=== PATIENT | male | born 1935 | race African-American/Black ===

== ENCOUNTER 2019-02-12 11:04 | Inpatient (IN) | payer MEDICARE, MEDICAID ==
[~2019-02-12] VITALS: Ht 177.8 cm; Wt 62.1 kg
--- NOTE | 2019-02-12 11:15 | NUR ---
ED Nurse Note: pt. was brought by caregiver from assisted living with ALOC since last night. Pt AAOx2, responding to painful stimuli and name. Pt on alarm security or surveillance monitor, VSS, NAD, SpO2 95% at 2L NC. ERMD at bedside. Will continue to monitor patient.
--- NOTE | 2019-02-12 11:30 | NUR ---
ED Nurse Note: IV ESTABLISHED ON L AC WITH 22 G. BLOOD COULD NOT BE DRAWN. WILL ATTEMPT AT A LATER TIME.
--- NOTE | 2019-02-12 11:40 | Emergency Room Report ---
History of Present Illness General Chief Complaint: Altered Level of Consciousness Source: Family Member, EMS Present Illness HPI Disclaimer: Please note that this report is being documented using DRAGON technology. This can lead to erroneous entry secondary to incorrect interpretation by the dictating instrument. HPI: 84-year-old male with history of hypertension, hyperlipidemia, COPD presents for evaluation of altered mental status. 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 Reported possible left- sided weakness though family member states they believe that is his baseline. He is confused and altered and cannot provide any history. He is complaining of abdominal pain and vomiting earlier. Denies dysuria or hematuria. Found to have a low-grade fever at triage. Intermittent coughing during the exam. EMS states he had one episode of vomiting last night. Patient cannot corroborate. PMH: Hypertension, hyperlipidemia, COPD PSH: Unknown Allergies: None Social Hx: Unknown Allergies: Coded Allergies: No Known Allergies (Unverified , 02/12/19) Nursing Documentation-PMH Past Medical History: No History, Except For History Of Psychiatric Problem: Yes - dementia Review of Systems All Other Systems: limited Physical Exam Vital Signs Date Time Temp Pulse Resp B/P (MAP) Pulse Ox O2 Delivery O2 Flow Rate FiO2 02/12/19 11:07 96.8 101 28 144/92 (109) 100 Room Air General: Awake, appears confused, difficulty following commands HEENT: NC/AT. EOMI. PERRLA. No nystagmus. Facial expressions are symmetrical. No facial droop. Cardiovascular: RRR. S1 and S2 normal. No murmur appreciated Resp: Tachypnea with mild increase in work of breathing. Occasional cough. No wheezing or crackles appreciated Abdomen: Abdomen is soft, nondistended. Nontender Skin: Intact. No abrasions, laceration or rash over the exposed skin MSK: Normal tone and bulk. Moving all extremities. No obvious deformity. Difficult to assess for drift given patient understanding and cooperation. Neuro: Awake, disoriented, difficulty following commands. Facial expression symmetrical. Sensation to light touch is intact over the upper and lower extremities. Medical Decision Making Diagnostic Impression: Primary Impression: Altered level of consciousness Additional Impressions: Pneumonia JOEL (acute kidney injury) Dehydration ER Course 84-year-old male presenting for evaluation of altered mental status, tachypnea and increased work of breathing. Differential includes was not limited to sepsis, pneumonia, dehydration, electrolyte abnormality, occult head injury, CVA. Will obtain a CT scan of the head and start a broad metabolic infectious work-up. IV fluids are started. Patient has no acute complaints at this time. Laboratory Tests Test 02/12/19 12:30 02/12/19 13:59 02/12/19 14:10 White Blood Count 9.7 K/UL (4.8-10.8) Red Blood Count 4.79 M/UL (4.70-6.10) Hemoglobin 13.7 G/DL (14.2-18.0) L Hematocrit 42.4 % (42.0-52.0) Mean Corpuscular Volume 88 FL (80-99) Mean Corpuscular Hemoglobin 28.7 PG (27.0-31.0) Mean Corpuscular Hemoglobin Concent 32.4 G/DL (32.0-36.0) Red Cell Distribution Width 12.8 % (11.6-14.8) Platelet Count 151 K/UL (150-450) Mean Platelet Volume 7.8 FL (6.5-10.1) Neutrophils (%) (Auto) 84.5 % (45.0-75.0) H Lymphocytes (%) (Auto) 8.6 % (20.0-45.0) L Monocytes (%) (Auto) 6.5 % (1.0-10.0) Eosinophils (%) (Auto) 0.0 % (0.0-3.0) Basophils (%) (Auto) 0.4 % (0.0-2.0) Prothrombin Time 11.2 SEC (9.30-11.50) Prothrombin Time INR 1.1 (0.9-1.1) PTT 27 SEC (23-33) Sodium Level 137 MMOL/L (136-145) Potassium Level 3.6 MMOL/L (3.5-5.1) Chloride Level 103 MMOL/L (98-107) Carbon Dioxide Level 23 MMOL/L (21-32) Anion Gap 11 mmol/L (5-15) Blood Urea Nitrogen 39 mg/dL (7-18) H Creatinine 2.1 MG/DL (0.55-1.30) H Estimate Glomerular Filtration Rate mL/min (>60) Glucose Level 121 MG/DL (74-106) H Lactic Acid Level 2.80 mmol/L (0.4-2.0) H Pending Calcium Level 9.3 MG/DL (8.5-10.1) Phosphorus Level 3.1 MG/DL (2.5-4.9) Magnesium Level 2.0 MG/DL (1.8-2.4) Total Bilirubin 1.1 MG/DL (0.2-1.0) H Direct Bilirubin 0.3 MG/DL (0.0-0.3) Aspartate Amino Transferase (AST) 62 U/L (15-37) H Alanine Aminotransferase (ALT) 30 U/L (12-78) Alkaline Phosphatase 47 U/L (46-116) Troponin I 0.056 ng/mL (0.000-0.056) Total Protein 7.8 G/DL (6.4-8.2) Albumin 3.1 G/DL (3.4-5.0) L Globulin 4.7 g/dL Albumin/Globulin Ratio 0.7 (1.0-2.7) L Triglycerides Level 32 MG/DL (30-150) Cholesterol Level 155 MG/DL (< 200) LDL Cholesterol 66 mg/dL (<100) HDL Cholesterol 73 MG/DL (40-60) H Cholesterol/HDL Ratio 2.1 (3.3-4.4) L Urine Color Yellow Urine Appearance Slightly cloudy Urine pH 5 (4.5-8.0) Urine Specific [place] 1.020 (1.005-1.035) Urine Protein 2+ (NEGATIVE) H Urine Glucose (UA) Negative (NEGATIVE) Urine Ketones Negative (NEGATIVE) Urine Blood 5+ (NEGATIVE) H Urine Nitrite Negative (NEGATIVE) Urine Bilirubin Negative (NEGATIVE) Urine Urobilinogen Normal MG/DL (0.0-1.0) Urine Leukocyte Esterase 1+ (NEGATIVE) H Urine RBC Pending Urine WBC Pending Urine Squamous Epithelial Cells Pending Urine Bacteria Pending Urine Eosinophils Pending Urine Osmolality Pending Urine Random Creatinine Pending Urine Random Microalbumin Pending Urine Random Sodium 64 mmol/L (20-110) Urine Microalbumin/Creatinine Ratio Pending Chest X-Ray Diagnostic Results Chest X-Ray Diagnostic Results : Chest X-Ray Ordered: Yes # of Views/Limited/Complete: 1 View Indication: Shortness of Breath Interpretation: other - Consolidation of the right upper lobe Impression: Other - Concern for right upper lobe pneumonia Electronically Signed by: Electronically signed by Dr. Oscar Govea Reevaluation Time: 13:10 Last Vital Signs Date Time Temp Pulse Resp B/P (MAP) Pulse Ox O2 Delivery O2 Flow Rate FiO2 02/12/19 11:07 96.8 101 28 144/92 (109) 100 Room Air Reevaluation Impression CT does not show acute head mass or intracranial bleed. There is an noted old infarcts but no mention of acute findings. Chest x-ray concerning for right upper lobe pneumonia. Labs largely unremarkable. Patient remains mildly tachypneic but in no respiratory distress. Treated with ceftriaxone and azithromycin. Labs also consistent with dehydration, and acute kidney injury and lactic acidosis. IV fluids are running. Urine is pending. He will be admitted to the hospital for further treatment of his pneumonia and altered mental status. Disposition: ADMITTED INPATIENT Condition: Serious Referrals: Cristian Yun MD (PCP) Oscar Govea MD Feb 12, 2019 11:40
--- NOTE | 2019-02-12 11:45 | NUR ---
ED Nurse Note: Pt going to CT accompanied by senior technical support analyst via tomas. VSS.
[2019-02-12 11:55] VITALS: BP 143/79
--- NOTE | 2019-02-12 11:56 | NUR ---
ED Nurse Note:called labs for blood draw
--- NOTE | 2019-02-12 12:01 | NUR ---
ED Nurse Note: XR at bedside.
--- NOTE | 2019-02-12 12:10 | Diagnostic Imaging Report ---
Indication: Altered mental status Technique: Continuous helical CT scanning of the head was performed utilizing automated exposure control without intravenous contrast material. Axial and coronal reconstructions were obtained. Comparison: None CT dose: Total DLP 245.2 mGycm; CTDI vol 125.4 mGy Findings: There is no acute intracranial hemorrhage, mass effect or cortical edema. Is no shift of midline structures. The ventricles, cisterns and sulci are prominent consistent with atrophy. Periventricular hypoattenuation is seen, a nonspecific finding. 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 Visualized mastoid air cells are clear. There is mucosal thickening with frothy secretions in the left sphenoid sinus. There are atherosclerotic gastric calcifications. No focal lesions of the bony calvarium or soft tissues of the scalp are seen. IMPRESSION: No evidence of acute intracranial hemorrhage, mass effect or cortical edema. Atrophy and nonspecific periventricular hypoattenuation suggestive of chronic ischemic microvascular changes. 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 The CT scanner at [facility] is accredited by the [employer] and the scans are performed using protocols designed to limit radiation exposure to as low as reasonably achievable to attain images of sufficient resolution adequate for diagnostic evaluation.
--- NOTE | 2019-02-12 12:23 | NUR ---
ED Nurse Note: Phlebotomy at bedside drawing blood.
[2019-02-12 12:55] LABS: ANION GAP 11 mmol/L (5-15); BASOPHILS % (AUTO) 0.4 % (0.0-2.0); BLOOD UREA NITROGEN 39 mg/dL (7-18); CALCIUM 9.3 MG/DL (8.5-10.1); CARBON DIOXIDE 23 MMOL/L (21-32); CHLORIDE 103 MMOL/L (98-107); CREATININE 2.1 MG/DL (0.55-1.30); HEMATOCRIT 42.4 % (42.0-52.0); HEMOGLOBIN 13.7 G/DL (14.2-18.0); LYMPHOCYTES % (AUTO) 8.6 % (20.0-45.0); MEAN CORPUSCULAR VOLUME 88 FL (80-99); MONOCYTES % (AUTO) 6.5 % (1.0-10.0); NEUTROPHILS % (AUTO) 84.5 % (45.0-75.0); PLATELET COUNT 151 K/UL (150-450); POTASSIUM 3.6 MMOL/L (3.5-5.1); RED BLOOD COUNT 4.79 M/UL (4.70-6.10); RED CELL DISTRIBUTION WIDTH 12.8 % (11.6-14.8); SODIUM 137 MMOL/L (136-145); WHITE BLOOD COUNT 9.7 K/UL (4.8-10.8)
[2019-02-12 13:00] VITALS: BP_SYST 13; BP_SYST 133; BP_DIAS 68
[2019-02-12] MEDS ORDERED: Azithromycin 500 MG in NS 275 ML IV ONE (13:00)
[2019-02-12] MEDS ORDERED: cefTRIAXone 1 GM in NS 55 ML IVPB ONE (13:00)
[2019-02-12 13:01] LABS: INR 1.1 (0.9-1.1)
[2019-02-12 13:02] LABS: PHOSPHORUS 3.1 MG/DL (2.5-4.9)
[2019-02-12] MEDS ORDERED: CRANBERRY450 M4 PO (13:08)
[2019-02-12] MEDS ORDERED: HYDRALAZINE HCL10 MG ORAL (13:08)
[2019-02-12] MEDS ORDERED: ASPIR 8181 MG ORAL (13:08)
[2019-02-12] MEDS ORDERED: MAPAP ARTHRITI650 MG ORAL (13:08)
[2019-02-12] MEDS ORDERED: NORCO 7.5-3251 EACH ORAL (13:08)
[2019-02-12] MEDS ORDERED: SENNA LAXATIVE8.6 MG PO (13:08)
[2019-02-12] MEDS ORDERED: CHLORTHALIDONE25 MG ORAL (13:08)
[2019-02-12] MEDS ORDERED: AMLODIPINE BESYL5 MG ORAL (13:08)
[2019-02-12] MEDS ORDERED: DUONEB 0.5-3(2.53 ML HHN (13:08)
[2019-02-12 13:09] LABS: ALANINE AMINOTRANSFERASE 30 U/L (12-78); ALBUMIN 3.1 G/DL (3.4-5.0); ALBUMIN/GLOBULIN RATIO 0.7 (1.0-2.7); ALKALINE PHOSPHATASE 47 U/L (46-116); ASPARTATE AMINO TRANSFERASE 62 U/L (15-37); BILIRUBIN,DIRECT 0.3 MG/DL (0.0-0.3); BILIRUBIN,TOTAL 1.1 MG/DL (0.2-1.0); CHOLESTEROL 155 MG/DL (< 200); HDL CHOLESTEROL 73 MG/DL (40-60); TRIGLYCERIDES 32 MG/DL (30-150)
[2019-02-12] MEDS ORDERED: LEVETIRACETAM1000 MG ORAL (13:09)
[2019-02-12] MEDS ORDERED: ATORVASTATIN CA80 MG ORAL (13:09)
[2019-02-12] MEDS ORDERED: Promethazine/Codeine 5ml UD ORAL PRN (13:15)
[2019-02-12] MEDS ORDERED: Albuterol/Ipratropium 3ml neb HHN PRN ×2 (13:15→19:11)
[2019-02-12] MEDS ORDERED: Miralax 17gm pkt ORAL PRN (13:15)
[2019-02-12] MEDS ORDERED: Nitroglycerin Subl 0.4mg tab SL PRN (13:15)
[2019-02-12] MEDS ORDERED: HYDROcodone/Acetamin 7.5/325 tab ORAL PRN (13:15)
--- NOTE | 2019-02-12 13:16 | Diagnostic Imaging Report ---
Indication: Shortness of breath Technique: XRAY Chest 1v Comparison: None Findings: Limited exam with low lung volumes. Heart appears enlarged although this may be exaggerated by low lung volumes. There is acute indeterminate interstitial prominence. No focal airspace opacities noted in the right upper lung. Possible small left pleural effusion. No radiographically appreciable pneumothorax. There are degenerative changes of the spine. No acute osseous abnormality. Impression: Limited exam with low lung volumes. Focal airspace opacities in the right upper lung which may represent an area of alveolar edema or pneumonia. Clinical correlation and follow-up is recommended. Background increased interstitial markings which may related to interstitial edema or underlying interstitial lung disease/fibrosis.
--- NOTE | 2019-02-12 13:49 | NUR ---
ED Nurse Note: US at bedside.
[2019-02-12 14:00] VITALS: BP 135/68
[2019-02-12 14:29] LABS: APPEARANCE,URINE SLIGHTLY CLOUDY; BILIRUBIN, URINE NEGATIVE (NEGATIVE); GLUCOSE, URINE (UA) NEGATIVE (NEGATIVE); KETONES,URINE NEGATIVE (NEGATIVE); LEUKOCYTE ESTERASE ,URINE 1+ (NEGATIVE); NITRITE,URINE NEGATIVE (NEGATIVE); PH,URINE 5 (4.5-8.0); PROTEIN,URINE 2+ (NEGATIVE); UROBILINOGEN,URINE NORMAL MG/DL (0.0-1.0)
[2019-02-12 14:32] LABS: COLOR,URINE YELLOW
--- NOTE | 2019-02-12 14:53 | NUR ---
ED Nurse Note: Gave report to Nils STARKEY for -.
--- NOTE | 2019-02-12 15:00 | NUR ---
TRANSFER TO FLOOR: Patient transferred to 204-1 accompanied by 1 RN 1 tech as ordered, per Dr. Bergman. Report given to Nils STARKEY at [id number]. Belongings sent with patient. Pt DAMION MCDOWELL.
--- NOTE | 2019-02-12 15:25 | Diagnostic Imaging Report ---
Indication: Renal insufficiency Technique: US Renal Comp Comparison: None Findings: Right kidney measures 9.5 cm in length. Left kidney measures 8.9 cm in length. Both kidneys demonstrate normal echogenicity. There is no hydronephrosis or sonographically appreciable renal stone bilaterally. There is diffuse thickening of the wall the bladder which may be related to underdistention. Partially visualized prostate appears mildly enlarged. Partially imaged liver unremarkable. IMPRESSION: * No hydronephrosis or sonographically appreciable renal stone * Renal echogenicity appears within normal limits. * Apparent bladder wall thickening may be related to underdistention. Correlation with urinalysis recommended to assess for cystitis. * Partially imaged prostate appears enlarged, exerting mass effect on the posterior aspect of the bladder.
--- NOTE | 2019-02-12 15:43 | History & Physical ---
History and Physical History & Physicial Robert Bergman MD Feb 12, 2019 15:43
[2019-02-12 16:46] LABS: CREATINE KINASE 2239 U/L (26-308)
[2019-02-12 16:47] VITALS: BP 136/84
[2019-02-12] MEDS ORDERED: Vancomycin 1.5gm/NS Premix q24h IVPB SCH (17:00)
--- NOTE | 2019-02-12 17:29 | NUR ---
NURSE NOTES: Pt came from ED, head to toe assessment, pt is Ox1, very confused, IV intact and patent, orders in by Wallace, pt has IV on right AC 22, pt was placed on equipment monitor phototypesetting and bed alarm on, call light at bedside, to collected influ A&B, placed condom cath on patient do to incontinence.
[2019-02-12] MEDS: D5 1/2NS w/KCl 20mEq 1,000 ML IV SCH (17:41)
[2019-02-12] MEDS: Cefepime HCl 1 GM in D5W 55 ML IV SCH (17:43)
--- NOTE | 2019-02-12 19:20 | NUR ---
HAND-OFF: Report given to JAKY Noel.
--- NOTE | 2019-02-12 19:21 | NUR ---
NURSE NOTES: Received pt from JAKY Novoa. Pt is awake and resting in bed no acute distress. Pt is AO1, able to verbalize name, delayed. Pt on 2 L nasal cannula. Iv site intact and patent. Bed locked in lowest position, bed alarm on, call light within reach. Will continue with plan of care.
--- NOTE | 2019-02-12 19:30 | History and Physical Report ---
DATE OF ADMISSION: 02/12/2019 CHIEF COMPLAINT: Altered mental status. HISTORY OF PRESENT ILLNESS: This is an 84-year-old very unfortunate gentleman with past medical history of hypertension, dyslipidemia, and chronic obstructive pulmonary disease, who has presented to the hospital after he was found to be altered mental status. Caregiver found the patient confused and lethargic this morning and possible left-sided weakness. According to the family member, the patient believes that this is baseline. He is confused and altered, cannot provide history, complained about the abdominal discomfort associated with the vomiting earlier. He denies any dysuria or frequency. He was found to have low-grade fever. Complained about chest congestion and cough. Shortly after initial evaluation in the emergency department, the patient was admitted to the hospital with pneumonia as well as acute kidney injury with prerenal azotemia, dehydration, and altered mental status most likely secondary to toxic metabolic encephalopathy. PAST MEDICAL HISTORY/PAST SURGICAL HISTORY: As above history of hypertension, dyslipidemia, and chronic obstructive pulmonary disease. MEDICATIONS AT HOME: Please refer to medication reconciliation. ALLERGIES: No known drug allergies. SOCIAL HISTORY: No smoking, alcohol, or drugs at this time. The patient is very demented and cannot provide history. REVIEW OF SYSTEMS: Mostly as above. Denies any dysuria, frequency, or hematuria. Denies any hemoptysis or hematochezia. Denies any bright red blood per rectum. PHYSICAL EXAMINATION: VITAL SIGNS: On admission, temperature 96.8, pulse of 101, respirations 28, and blood pressure 144/92. GENERAL: The patient is cachectic, malnutrition, cannot follow commands, and confused. HEAD AND NECK: Pupils are reactive to light. Anicteric. NECK: Supple. No JVD. LUNGS: Good air entry. No wheezing or rhonchi. The patient has crackles in the both posterior aspects of the lung. ABDOMEN: Soft, nondistended, and nontender. Positive bowel sounds. EXTREMITIES: No cyanosis, clubbing, or edema. NEUROLOGIC: Very limited secondary to the patient's status. However, the patient is moving extremities spontaneously. Gait was not assessed due to the patient's status. DIAGNOSTIC DATA: On admission, CT of the brain showed no evidence of acute intracranial hemorrhage, mass effect, or cortical edema. Atrophy and nonspecific periventricular hypoattenuation suggestive of the chronic ischemic microvascular changes and chronic ischemic infarction in the right basal ganglia was identified. Chest x-ray was noted to be limited due to the low lung volumes, focal airspace opacity in the right upper lung, which may represent an area of the alveolar edema or pneumonia. Clinical correlation and follow-up is recommended. The patient's ultrasound of the kidney showed no hydronephrosis or sonographic appreciated renal stone. Renal echogenicity appear within the normal limits and apparent bladder wall thickening may be related to the under distention. Partial image for prostate appear enlarged exerting mass effect on the posterior aspect of the bladder. LABORATORY DATA: WBC of 9.7, hemoglobin 13, hematocrit 42, and platelets is 151,000. Sodium 137, potassium 3.6, chloride 103, bicarb 23, BUN 39, creatinine 2.1, and glucose is 121. Lactic acid is 2.8. Calcium is 9.3, Total bilirubin is 1.1 and direct bilirubin of 0.3. AST of 62 and ALT of 30. Troponin 0.056. Albumin is 3.1. Cholesterol is 155, HDL is 73, and LDL 66. PT of 11, INR 1.1, and PTT of 27. Urinalysis, +2 protein, +5 blood, 5 to 10 rbc's, and wbc. ASSESSMENT: 1. Altered mental status, most likely secondary to toxic metabolic encephalopathy as a result of the sepsis and dehydration. 2. Acute kidney injury and chronic renal insufficiency. 3. Dehydration and hypovolemia. 4. Pneumonia. 5. Hypertension. 6. Dyslipidemia. 7. Chronic obstructive pulmonary disease. PLAN: 1. Admit the patient to monitored unit. 2. We will follow up with Dr. Yun, Pulmonary Critical Care and Dr. Romero Sunshine from Nephrology. 3. Start the patient on IV hydration. 4. Resume home medication. 5. DVT prophylaxis with heparin subcutaneous. 6. Follow up with the nebulizer treatment as needed. 7. Broad-spectrum antibiotic with cefepime, Zithromax, and vancomycin. 8. We will follow up with the viral study. 9. Code status is Full Code. Robert Bergman M.D. DR: JOYCE JOB#: [id number] CC:
[2019-02-12 20:00] VITALS: BP 124/80
[2019-02-12] MEDS: Atorvastatin 80mg tab ORAL SCH (21:23)
[2019-02-12] MEDS: Heparin 5000 units/ml inj SUBQ SCH (21:27)
[2019-02-13] VITALS (7 sets, daily range): BP systolic 104–137; BP diastolic 60–76
[2019-02-13] MEDS: D5 1/2NS w/KCl 20mEq 1,000 ML IV SCH ×3 (06:55→20:21)
--- NOTE | 2019-02-13 07:22 | NUR ---
HAND-OFF: Report given to JAKY Dawson. Endorsed plan of care.
--- NOTE | 2019-02-13 08:05 | NUR ---
NURSE NOTES: Received patient from Edy Dee. Patient is awake lying comfortably in bed. NO complain of pain or discomfort. Fall precautions in place. call ritter within patients reach. will follow.
[2019-02-13] MEDS: Aspirin EC 81mg tab ORAL SCH (08:43)
[2019-02-13] MEDS: Heparin 5000 units/ml inj SUBQ SCH ×2 (08:44→20:22)
[2019-02-13 08:56] LABS: HEMATOCRIT 36.8 % (42.0-52.0); HEMOGLOBIN 12.1 G/DL (14.2-18.0); MEAN CORPUSCULAR VOLUME 89 FL (80-99); PLATELET COUNT 105 K/UL (150-450); RED BLOOD COUNT 4.13 M/UL (4.70-6.10); WHITE BLOOD COUNT 7.4 K/UL (4.8-10.8)
[2019-02-13 09:37] LABS: ALANINE AMINOTRANSFERASE 30 U/L (12-78); ALBUMIN 2.5 G/DL (3.4-5.0); ALBUMIN/GLOBULIN RATIO 0.6 (1.0-2.7); ALKALINE PHOSPHATASE 39 U/L (46-116); ANION GAP 5 mmol/L (5-15); ASPARTATE AMINO TRANSFERASE 91 U/L (15-37); BILIRUBIN,TOTAL 1.1 MG/DL (0.2-1.0); BLOOD UREA NITROGEN 37 mg/dL (7-18); CALCIUM 8.5 MG/DL (8.5-10.1); CARBON DIOXIDE 28 MMOL/L (21-32); CHLORIDE 104 MMOL/L (98-107); CREATININE 1.7 MG/DL (0.55-1.30); POTASSIUM 3.6 MMOL/L (3.5-5.1); SODIUM 137 MMOL/L (136-145)
[2019-02-13 09:45] LABS: BILIRUBIN,DIRECT 0.3 MG/DL (0.0-0.3)
--- NOTE | 2019-02-13 09:57 | NUR ---
*-* NO INSURANCE INFORMATION IN THE BAR UNABLE TO SEND CLINICALS OR REVIEWS *-*
[2019-02-13 09:59] LABS: PHOSPHORUS 2.7 MG/DL (2.5-4.9)
--- NOTE | 2019-02-13 10:38 | Consultation ---
History of Present Illness General Chief Complaint: Altered Level of Consciousness Reason for Consultation: PNA Present Illness HPI Mr. Osman is an 84 yo male with PMHx of COPD, HLD, and HTN who was sent to the ED on 02/12/19 with AMS. The patient lives at home with a home child care provider. He was noted to be confused and lithargic so was sent to the ED. He is unable to given a history but per notes he has a basline leftsided weakness and was complaining of cough, abdominal pain and vomiting. In the ED he had high temp of 100.6 and Cr of 1.7. His CXR showed RUL PNA. He currnetly is on 2L NC and denies pain. He denies dysuria bu his UA was pos. ID was consulted for PNA PMHx/PSHx COPD HLD HTN SocHx No E/T/D FamHx Unable to obtian Allergies: Coded Allergies: No Known Allergies (Unverified , 02/12/19) Medication History Scheduled Amlodipine Besylate* (Amlodipine Besylate*), 5 MG ORAL DAILY, (Reported) Aspirin* (Aspir 81*), 81 MG ORAL DAILY, (Reported) Atorvastatin Calcium* (Lipitor*), 80 MG ORAL BEDTIME, (Reported) Chlorthalidone* (Chlorthalidone*), 25 MG ORAL DAILY, (Reported) Cranberry Fruit Concentrate (Cranberry), 500 MG PO DAILY, (Reported) Hydralazine Hcl* (Hydralazine Hcl*), 10 MG ORAL EVERY 8 HOURS, (Reported) Ipratropium/Albuterol Sulfate (DuoNeb 0.5-3(2.5)mg/3ml), 3 ML HHN Q4HR, ( Reported) Levetiracetam (Levetiracetam), 1,000 MG ORAL TWICE A DAY, (Reported) Sennosides (Senna Laxative), 8.6 MG PO DAILY, (Reported) Scheduled PRN Acetaminophen (Mapap Arthritis Pain), 650 MG ORAL Q6HR PRN for ARTHRITIS PAIN, ( Reported) Hydrocodone Bit/Acetaminophen 7.5-325* ([place] 7.5-325*), 1 TAB ORAL Q6H PRN for For Pain, (Reported) Patient History Healthcare decision maker self Resuscitation status Full Code Advanced Directive on File No Review of Systems ROS Narrative 12 point ROS negative except as noted in the HPI Physical Exam Last 24 Hour Vital Signs Date Time Temp Pulse Resp B/P (MAP) Pulse Ox O2 Delivery O2 Flow Rate FiO2 02/13/19 09:00 Room Air 2.0 02/13/19 08:43 98 133/71 02/13/19 08:30 98 Nasal Cannula 2.0 28 02/13/19 08:30 97 21 98 Nasal Cannula 2.0 28 02/13/19 08:00 99.5 99 22 133/71 (91) 98 98 02/13/19 04:00 98 02/13/19 04:00 99.5 98 18 127/73 (91) 96 98 02/13/19 00:00 97.5 91 20 137/76 (96) 99 91 02/13/19 00:00 91 02/12/19 21:54 98.1 02/12/19 21:00 Room Air 2.0 02/12/19 20:00 100.6 102 22 124/80 (95) 99 102 02/12/19 17:07 Nasal Cannula 2.0 02/12/19 16:47 97.1 103 22 136/84 (101) 95 103 02/12/19 16:30 93 02/12/19 15:00 99.3 98 26 135/68 95 Nasal Cannula 2.0 96 02/12/19 14:00 99.3 98 26 135/68 95 Room Air 96 02/12/19 13:00 99.3 96 28 133/68 95 Room Air 02/12/19 12:45 99 28 Room Air 02/12/19 11:55 99.7 101 28 143/79 100 Room Air 02/12/19 11:07 96.8 101 28 144/92 (109) 100 Room Air Intake and Output 02/12/19 02/13/19 19:00 07:00 Intake Total 0 ml Output Total 400 ml Balance 0 ml -400 ml Intake Oral 0 ml Output Urine Total 400 ml Laboratory Tests Test 02/12/19 12:30 02/12/19 13:59 02/12/19 14:10 02/13/19 07:55 White Blood Count 9.7 K/UL (4.8-10.8) 7.4 K/UL (4.8-10.8) Red Blood Count 4.79 M/UL (4.70-6.10) 4.13 M/UL (4.70-6.10) L Hemoglobin 13.7 G/DL (14.2-18.0) L 12.1 G/DL (14.2-18.0) L Hematocrit 42.4 % (42.0-52.0) 36.8 % (42.0-52.0) L Mean Corpuscular Volume 88 FL (80-99) 89 FL (80-99) Mean Corpuscular Hemoglobin 28.7 PG (27.0-31.0) 29.3 PG (27.0-31.0) Mean Corpuscular Hemoglobin Concent 32.4 G/DL (32.0-36.0) 32.9 G/DL (32.0-36.0) Red Cell Distribution Width 12.8 % (11.6-14.8) 13.0 % (11.6-14.8) Platelet Count 151 K/UL (150-450) 105 K/UL (150-450) L Mean Platelet Volume 7.8 FL (6.5-10.1) 8.0 FL (6.5-10.1) Neutrophils (%) (Auto) 84.5 % (45.0-75.0) H % (45.0-75.0) Lymphocytes (%) (Auto) 8.6 % (20.0-45.0) L % (20.0-45.0) Monocytes (%) (Auto) 6.5 % (1.0-10.0) % (1.0-10.0) Eosinophils (%) (Auto) 0.0 % (0.0-3.0) % (0.0-3.0) Basophils (%) (Auto) 0.4 % (0.0-2.0) % (0.0-2.0) Prothrombin Time 11.2 SEC (9.30-11.50) Prothromb Time International Ratio 1.1 (0.9-1.1) Activated Partial Thromboplast Time 27 SEC (23-33) Sodium Level 137 MMOL/L (136-145) 137 MMOL/L (136-145) Potassium Level 3.6 MMOL/L (3.5-5.1) 3.6 MMOL/L (3.5-5.1) Chloride Level 103 MMOL/L (98-107) 104 MMOL/L (98-107) Carbon Dioxide Level 23 MMOL/L (21-32) 28 MMOL/L (21-32) Anion Gap 11 mmol/L (5-15) 5 mmol/L (5-15) Blood Urea Nitrogen 39 mg/dL (7-18) H 37 mg/dL (7-18) H Creatinine 2.1 MG/DL (0.55-1.30) H 1.7 MG/DL (0.55-1.30) H Estimat Glomerular Filtration Rate mL/min (>60) mL/min (>60) Glucose Level 121 MG/DL (74-106) H 113 MG/DL (74-106) H Lactic Acid Level 2.80 mmol/L (0.4-2.0) H 3.60 mmol/L (0.66-2.22) H Uric Acid 10.9 MG/DL (2.6-7.2) H Calcium Level 9.3 MG/DL (8.5-10.1) 8.5 MG/DL (8.5-10.1) Phosphorus Level 3.1 MG/DL (2.5-4.9) 2.7 MG/DL (2.5-4.9) Magnesium Level 2.0 MG/DL (1.8-2.4) 1.9 MG/DL (1.8-2.4) Total Bilirubin 1.1 MG/DL (0.2-1.0) H 1.1 MG/DL (0.2-1.0) H Direct Bilirubin 0.3 MG/DL (0.0-0.3) 0.3 MG/DL (0.0-0.3) Aspartate Amino Transf (AST/SGOT) 62 U/L (15-37) H 91 U/L (15-37) H Alanine Aminotransferase (ALT/SGPT) 30 U/L (12-78) 30 U/L (12-78) Alkaline Phosphatase 47 U/L (46-116) 39 U/L (46-116) L Total Creatine Kinase 2239 U/L (26-308) H Troponin I 0.056 ng/mL (0.000-0.056) Total Protein 7.8 G/DL (6.4-8.2) 6.9 G/DL (6.4-8.2) Albumin 3.1 G/DL (3.4-5.0) L 2.5 G/DL (3.4-5.0) L Globulin 4.7 g/dL 4.4 g/dL Albumin/Globulin Ratio 0.7 (1.0-2.7) L 0.6 (1.0-2.7) L Triglycerides Level 32 MG/DL (30-150) Cholesterol Level 155 MG/DL (< 200) LDL Cholesterol 66 mg/dL (<100) HDL Cholesterol 73 MG/DL (40-60) H Cholesterol/HDL Ratio 2.1 (3.3-4.4) L Urine Color Yellow Urine Appearance Slightly cloudy Urine pH 5 (4.5-8.0) Urine Specific [place] 1.020 (1.005-1.035) Urine Protein 2+ (NEGATIVE) H Urine Glucose (UA) Negative (NEGATIVE) Urine Ketones Negative (NEGATIVE) Urine Blood 5+ (NEGATIVE) H Urine Nitrite Negative (NEGATIVE) Urine Bilirubin Negative (NEGATIVE) Urine Urobilinogen Normal MG/DL (0.0-1.0) Urine Leukocyte Esterase 1+ (NEGATIVE) H Urine RBC 5-10 /HPF (0 - 0) H Urine WBC Tntc /HPF (0 - 0) H Urine Squamous Epithelial Cells Few /LPF (NONE/OCC) Urine Bacteria Few /HPF (NONE) Urine Hyaline Casts 0-2 /LPF (NONE) H Urine Fine Granular Casts 2-4 /LPF (NONE) H Urine Eosinophils None seen (NONE SEEN) Urine Osmolality 743 mOsm/kg (429-449) H Urine Random Creatinine Pending Urine Random Microalbumin Pending Urine Random Sodium 64 mmol/L (20-110) Urine Microalbumin/Creatinine Ratio Pending Differential Total Cells Counted 100 Neutrophils % (Manual) 83 % (45-75) H Lymphocytes % (Manual) 10 % (20-45) L Monocytes % (Manual) 7 % (1-10) Eosinophils % (Manual) 0 % (0-3) Basophils % (Manual) 0 % (0-2) Band Neutrophils 0 % (0-8) Platelet Estimate Decreased L Platelet Morphology Normal Red Blood Cell Morphology Normal Random Vancomycin Level 10.3 ug/mL Microbiology Date/Time Source Procedure Growth Status 02/12/19 18:45 Nasal Nares - Final Complete 02/12/19 18:45 Nasal Nares - Final Complete 02/12/19 14:10 Urine,Clean Catch Urine Culture - Preliminary NO GROWTH Resulted Height (Feet): 5 Height (Inches): 10.00 Weight (Pounds): 151 Medications Current Medications Medications (Trade) Dose Ordered Sig/Nixon Route PRN Reason Start Time Stop Time Status Last Admin Dose Admin Acetaminophen (Tylenol) 650 mg Q4H PRN ORAL fever 02/12/19 13:15 03/14/19 13:14 02/12/19 21:24 Acetaminophen/ Hydrocodone Bitart ([place] 7.5/325) 1 tab Q6H PRN ORAL For Pain 02/12/19 13:15 02/19/19 13:14 Albuterol/ Ipratropium (Albuterol/ Ipratropium) 3 ml Q4H PRN HHN Shortness of Breath 02/12/19 19:11 02/17/19 19:10 Amlodipine Besylate (Norvasc) 5 mg DAILY ORAL 02/13/19 09:00 03/15/19 08:59 02/13/19 08:43 Aspirin (Ecotrin) 81 mg DAILY ORAL 02/13/19 09:00 03/15/19 08:59 02/13/19 08:43 Atorvastatin Calcium (Lipitor) 80 mg BEDTIME ORAL 02/12/19 21:00 03/14/19 20:59 02/12/19 21:23 Cefepime HCl 1 gm/ Dextrose 55 ml @ 110 mls/hr Q24H IV 02/12/19 18:00 02/19/19 17:59 02/12/19 17:43 Dextrose/ Electrolytes 1,000 ml @ 75 mls/hr [id number] IV 02/12/19 17:00 03/14/19 16:59 02/13/19 06:55 Heparin Sodium (Porcine) (Heparin 5000 units/ml) 5,000 units EVERY 12 HOURS SUBQ 02/12/19 21:00 03/14/19 20:59 02/13/19 08:44 Levetiracetam (Keppra) 1,000 mg Q12HR ORAL 02/12/19 21:00 03/14/19 20:59 02/13/19 08:43 Nitroglycerin (Ntg) 0.4 mg Q5M PRN SL Prn Chest Pain 02/12/19 13:15 03/14/19 13:14 Ondansetron HCl (Zofran) 4 mg Q6H PRN IVP Nausea & Vomiting 02/12/19 13:15 03/14/19 13:14 Polyethylene Glycol (Miralax) 17 gm DAILYPRN PRN ORAL Constipation 02/12/19 13:15 03/14/19 13:14 Promethazine HCl/ Codeine (Phenergan with Codeine) 5 ml Q4H PRN ORAL For Cough 02/12/19 13:15 03/14/19 13:14 Temazepam (Restoril) 15 mg HSPRN PRN ORAL Insomnia 02/12/19 13:15 02/19/19 13:14 Vancomycin HCl (Vanco rx to dose) 1 ea DAILY PRN MISC Per rx protocol 02/12/19 13:15 03/14/19 13:14 Vancomycin/Sodium Chloride 275 ml @ 137.5 mls/ hr ONCE IVPB 02/13/19 12:00 02/13/19 14:00 Objective Narrative Gen: NAD HEENT: NCAT, MMM, EOMI, PERRL, No Oral lesion, no scleral icterus NECK: full range of motion, supple, no meningismus, No LAD, No JVD LUNGS: Coarse B/L, No Wheezing, No Accessory muscle use CARDS: RRR, S1, S2, No M/R/G, ABD: Soft, NT, ND, No R/G, + BS, No HSM, No Masses : Deferred Ext: C/C/E, Pulses 2+ B/L (DP, Rad): NEURO: A/O x 1, Strength and Sensation decreased PSYCH: Normal mood and affect SKIN: Warm/dry, No rashes Assessment/Plan Assessment/Plan: 84 yo male with PMHx of COPD, HLD, and HTN who was sent to the ED on 02/12/19 with AMS. CAP CXR RUL infltrate Inf Screen (-) Low grade fever No leukocytosis UTI UA (+) Urine Cx 02/12/19 - NGTD AMS JOEL COPD HLD HTN PLAN: - Continue Cefepime and vancomycin - pending Cx - Start Azithromycin - f/u Cx - Monitor CBC and Temps Thank you for this consult. [facility] will continue to follow the patient with you during this hospitalization. Martinez Banda MD Feb 13, 2019 10:38
--- NOTE | 2019-02-13 10:58 | Internal Med Progress Note ---
Subjective Physician Name Robert Bergman Attending Physician Robert Bergman MD Current Medications Medications (Trade) Dose Ordered Sig/Nixon Route PRN Reason Start Time Stop Time Status Last Admin Dose Admin Acetaminophen (Tylenol) 650 mg Q4H PRN ORAL fever 02/12/19 13:15 03/14/19 13:14 02/12/19 21:24 Acetaminophen/ Hydrocodone Bitart ([place] 7.5/325) 1 tab Q6H PRN ORAL For Pain 02/12/19 13:15 02/19/19 13:14 Albuterol/ Ipratropium (Albuterol/ Ipratropium) 3 ml Q4H PRN HHN Shortness of Breath 02/12/19 19:11 02/17/19 19:10 Amlodipine Besylate (Norvasc) 5 mg DAILY ORAL 02/13/19 09:00 03/15/19 08:59 02/13/19 08:43 Aspirin (Ecotrin) 81 mg DAILY ORAL 02/13/19 09:00 03/15/19 08:59 02/13/19 08:43 Atorvastatin Calcium (Lipitor) 80 mg BEDTIME ORAL 02/12/19 21:00 03/14/19 20:59 02/12/19 21:23 Cefepime HCl 1 gm/ Dextrose 55 ml @ 110 mls/hr Q24H IV 02/12/19 18:00 02/19/19 17:59 02/12/19 17:43 Dextrose/ Electrolytes 1,000 ml @ 75 mls/hr [id number] IV 02/12/19 17:00 03/14/19 16:59 02/13/19 06:55 Heparin Sodium (Porcine) (Heparin 5000 units/ml) 5,000 units EVERY 12 HOURS SUBQ 02/12/19 21:00 03/14/19 20:59 02/13/19 08:44 Levetiracetam (Keppra) 1,000 mg Q12HR ORAL 02/12/19 21:00 03/14/19 20:59 02/13/19 08:43 Nitroglycerin (Ntg) 0.4 mg Q5M PRN SL Prn Chest Pain 02/12/19 13:15 03/14/19 13:14 Ondansetron HCl (Zofran) 4 mg Q6H PRN IVP Nausea & Vomiting 02/12/19 13:15 03/14/19 13:14 Polyethylene Glycol (Miralax) 17 gm DAILYPRN PRN ORAL Constipation 02/12/19 13:15 03/14/19 13:14 Promethazine HCl/ Codeine (Phenergan with Codeine) 5 ml Q4H PRN ORAL For Cough 02/12/19 13:15 03/14/19 13:14 Temazepam (Restoril) 15 mg HSPRN PRN ORAL Insomnia 02/12/19 13:15 02/19/19 13:14 Vancomycin HCl (Vanco rx to dose) 1 ea DAILY PRN MISC Per rx protocol 02/12/19 13:15 03/14/19 13:14 Vancomycin/Sodium Chloride 275 ml @ 137.5 mls/ hr ONCE IVPB 02/13/19 12:00 02/13/19 14:00 Allergies: Coded Allergies: No Known Allergies (Unverified , 02/12/19) Subjective Awake, more responsive. Still complained about shortness of breath and wheezes. Improving renal function. Objective Last Vital Signs Date Time Temp Pulse Resp B/P (MAP) Pulse Ox O2 Delivery O2 Flow Rate FiO2 02/13/19 09:00 Room Air 2.0 02/13/19 08:43 98 133/71 02/13/19 08:30 98 28 02/13/19 08:30 21 02/13/19 08:00 99.5 Laboratory Tests Test 02/12/19 12:30 02/12/19 13:59 02/12/19 14:10 02/13/19 07:55 White Blood Count 9.7 K/UL (4.8-10.8) 7.4 K/UL (4.8-10.8) Red Blood Count 4.79 M/UL (4.70-6.10) 4.13 M/UL (4.70-6.10) L Hemoglobin 13.7 G/DL (14.2-18.0) L 12.1 G/DL (14.2-18.0) L Hematocrit 42.4 % (42.0-52.0) 36.8 % (42.0-52.0) L Mean Corpuscular Volume 88 FL (80-99) 89 FL (80-99) Mean Corpuscular Hemoglobin 28.7 PG (27.0-31.0) 29.3 PG (27.0-31.0) Mean Corpuscular Hemoglobin Concent 32.4 G/DL (32.0-36.0) 32.9 G/DL (32.0-36.0) Red Cell Distribution Width 12.8 % (11.6-14.8) 13.0 % (11.6-14.8) Platelet Count 151 K/UL (150-450) 105 K/UL (150-450) L Mean Platelet Volume 7.8 FL (6.5-10.1) 8.0 FL (6.5-10.1) Neutrophils (%) (Auto) 84.5 % (45.0-75.0) H % (45.0-75.0) Lymphocytes (%) (Auto) 8.6 % (20.0-45.0) L % (20.0-45.0) Monocytes (%) (Auto) 6.5 % (1.0-10.0) % (1.0-10.0) Eosinophils (%) (Auto) 0.0 % (0.0-3.0) % (0.0-3.0) Basophils (%) (Auto) 0.4 % (0.0-2.0) % (0.0-2.0) Prothrombin Time 11.2 SEC (9.30-11.50) Prothromb Time International Ratio 1.1 (0.9-1.1) Activated Partial Thromboplast Time 27 SEC (23-33) Sodium Level 137 MMOL/L (136-145) 137 MMOL/L (136-145) Potassium Level 3.6 MMOL/L (3.5-5.1) 3.6 MMOL/L (3.5-5.1) Chloride Level 103 MMOL/L (98-107) 104 MMOL/L (98-107) Carbon Dioxide Level 23 MMOL/L (21-32) 28 MMOL/L (21-32) Anion Gap 11 mmol/L (5-15) 5 mmol/L (5-15) Blood Urea Nitrogen 39 mg/dL (7-18) H 37 mg/dL (7-18) H Creatinine 2.1 MG/DL (0.55-1.30) H 1.7 MG/DL (0.55-1.30) H Estimat Glomerular Filtration Rate mL/min (>60) mL/min (>60) Glucose Level 121 MG/DL (74-106) H 113 MG/DL (74-106) H Lactic Acid Level 2.80 mmol/L (0.4-2.0) H 3.60 mmol/L (0.66-2.22) H Uric Acid 10.9 MG/DL (2.6-7.2) H Calcium Level 9.3 MG/DL (8.5-10.1) 8.5 MG/DL (8.5-10.1) Phosphorus Level 3.1 MG/DL (2.5-4.9) 2.7 MG/DL (2.5-4.9) Magnesium Level 2.0 MG/DL (1.8-2.4) 1.9 MG/DL (1.8-2.4) Total Bilirubin 1.1 MG/DL (0.2-1.0) H 1.1 MG/DL (0.2-1.0) H Direct Bilirubin 0.3 MG/DL (0.0-0.3) 0.3 MG/DL (0.0-0.3) Aspartate Amino Transf (AST/SGOT) 62 U/L (15-37) H 91 U/L (15-37) H Alanine Aminotransferase (ALT/SGPT) 30 U/L (12-78) 30 U/L (12-78) Alkaline Phosphatase 47 U/L (46-116) 39 U/L (46-116) L Total Creatine Kinase 2239 U/L (26-308) H Troponin I 0.056 ng/mL (0.000-0.056) Total Protein 7.8 G/DL (6.4-8.2) 6.9 G/DL (6.4-8.2) Albumin 3.1 G/DL (3.4-5.0) L 2.5 G/DL (3.4-5.0) L Globulin 4.7 g/dL 4.4 g/dL Albumin/Globulin Ratio 0.7 (1.0-2.7) L 0.6 (1.0-2.7) L Triglycerides Level 32 MG/DL (30-150) Cholesterol Level 155 MG/DL (< 200) LDL Cholesterol 66 mg/dL (<100) HDL Cholesterol 73 MG/DL (40-60) H Cholesterol/HDL Ratio 2.1 (3.3-4.4) L Urine Color Yellow Urine Appearance Slightly cloudy Urine pH 5 (4.5-8.0) Urine Specific [place] 1.020 (1.005-1.035) Urine Protein 2+ (NEGATIVE) H Urine Glucose (UA) Negative (NEGATIVE) Urine Ketones Negative (NEGATIVE) Urine Blood 5+ (NEGATIVE) H Urine Nitrite Negative (NEGATIVE) Urine Bilirubin Negative (NEGATIVE) Urine Urobilinogen Normal MG/DL (0.0-1.0) Urine Leukocyte Esterase 1+ (NEGATIVE) H Urine RBC 5-10 /HPF (0 - 0) H Urine WBC Tntc /HPF (0 - 0) H Urine Squamous Epithelial Cells Few /LPF (NONE/OCC) Urine Bacteria Few /HPF (NONE) Urine Hyaline Casts 0-2 /LPF (NONE) H Urine Fine Granular Casts 2-4 /LPF (NONE) H Urine Eosinophils None seen (NONE SEEN) Urine Osmolality 743 mOsm/kg (429-449) H Urine Random Creatinine Pending Urine Random Microalbumin Pending Urine Random Sodium 64 mmol/L (20-110) Urine Microalbumin/Creatinine Ratio Pending Differential Total Cells Counted 100 Neutrophils % (Manual) 83 % (45-75) H Lymphocytes % (Manual) 10 % (20-45) L Monocytes % (Manual) 7 % (1-10) Eosinophils % (Manual) 0 % (0-3) Basophils % (Manual) 0 % (0-2) Band Neutrophils 0 % (0-8) Platelet Estimate Decreased L Platelet Morphology Normal Red Blood Cell Morphology Normal Random Vancomycin Level 10.3 ug/mL Microbiology Date/Time Source Procedure Growth Status 02/12/19 18:45 Nasal Nares - Final Complete 02/12/19 18:45 Nasal Nares - Final Complete 02/12/19 14:10 Urine,Clean Catch Urine Culture - Preliminary NO GROWTH Resulted Intake and Output 02/12/19 02/13/19 19:00 07:00 Intake Total 0 ml Output Total 400 ml Balance 0 ml -400 ml Intake Oral 0 ml Output Urine Total 400 ml Objective GENERAL: The patient is cachectic, malnutrition and more responsive HEAD AND NECK: Pupils are reactive to light. Anicteric. NECK: Supple. No JVD. LUNGS: Good air entry. + expiratory wheezing, + basal crackles. ABDOMEN: Soft, nondistended, and nontender. Positive bowel sounds. EXTREMITIES: No cyanosis, clubbing, or edema. NEUROLOGIC: Very limited secondary to the patient's status. However, the patient is moving extremities spontaneously. Gait was not assessed due to the patient's status. Assessment/Plan Assessment/Plan ASSESSMENT: 1. Altered mental status, most likely secondary to toxic metabolic encephalopathy as a result of the sepsis and dehydration. 2. Acute kidney injury and chronic renal insufficiency. 3. Dehydration and hypovolemia. 4. Pneumonia. 5. Hypertension. 6. Dyslipidemia. 7. Chronic obstructive pulmonary disease. PLAN: 1. Admit the patient to monitored unit. 2. We will follow up with Dr. Yun, Pulmonary Critical Care and Dr. Romero Sunshine from Nephrology. 3. On IV hydration. 4. Monitor labs and cultures. 5. DVT prophylaxis with heparin subcutaneous. 6. Follow up with the nebulizer treatment as needed. 7. Broad-spectrum antibiotic with cefepime, Zithromax, and vancomycin. 8. We will follow up with the viral study. 9. Code status: Full Code. Robert Bergman MD Feb 13, 2019 10:58
--- NOTE | 2019-02-13 11:05 | NUR ---
NOTES: REFERRED FOR SWALLOW EVALUATION BY DR VARGAS, SEE FULL REPORT TO FOLLOW. DYSPHAGIA RISK FACTORS FOR THIS 84 Y.O.M.: ACUTE ISSUE: ALOC TOXIC-MET ENCEPHALOPATHY, R UPPER LOBE PNA, DEHYDRATION, POSS SOUND MIXER, ABDOMINAL PAIN AND VOMITED EARLIER, SOB RESP RATE 18-21, PER RT PATIENT HAS DIFFICULTY CLEARING ORAL SECRETIONS, JOEL. H/O R BASAL GANGLIA CVA, COPD, DEMENTIA. HTN, DM2, ENDOCRINE D/O, HYPERLIPIDEMIA,. RELEVANT MEDS: ALBUTEROL, NORCO POLST/ADVANCE DIRECTIVE NOT AVAILABLE REGARDING ARTIFICIAL NUTRITION (INCLUDES TUBE FEEDINGS). DIET/LIQUIDS AT ASSISTED LIVING - INFORMATION NOT AVAILABLE, NEED TO CHECK. CURRENTLY NPO EXCEPT MEDS AND ICE CHIPS. RD REPORT NOT IN BUT SCREENED FOR CACHEXIA, PT NOT CACHECTIC. PER RT PATIENT HAS DIFFICULTY CLEARING ORAL SECRETIONS. PER RNBROOKE, REQUIRED DEEP NASAL SUCTION FOR MODERATE THICK BEIGE ORAL SECRETIONS. APPEAR SOB AT REST ON 3 LITERS 02 NC. NOT CONSISTENTLY ALERT FOR PO TRIALS. DIFFICULT TO UNDERSTAND SPEECH (DYSARTHRIC AND DYSPHONIC). WILL HOLD PO TRIALS/MEALS/ AND MOD BARIUM SWALLOW STUDY FOR NOW. PATIENT NOT VERY RECEPTIVE TO CLINICAL UNIT COORDINATOR EXAMINING MOUTH AND DID NOT FOLLOW COMMANDS DUE TO LETHARGY. HAS MIN DENTITION AND NO DENTURES. INITIAL IMPRESSIONS HIGH RISK FOR SIGNIFICANT OROPHARYNGEAL DYSPHAGIA AND SILENT ASPIRATION (DUE TO H/O COPD AND OLD CVA) PATIENT REQUIRES FREQUENT ORAL AND DEEP NASAL SUCTION FOR OWN SECRETIONS. HIGH RISK FOR POOR TO NO INTAKE AND MALNUTRITION/DEHYRATION DUE TO POOR ALERTNESS AND RESPIRATORY DIFFICULTIES. RECOMMENDATIONS: KEEP NPO (INCLUDES MEDS/ICE CHIPS) CONSIDER INITIATION OF TEMPORARY NONORAL FEEDINGS (12 KYRGYZ NGT) AND CONTINUE WITH ORAL CARE/SUCTION PRN (MAY REFUSE PATIENT DISLIKES PER KATELYN LOPEZ) D/W DR VARGAS WHO AGREED WITH NPO AND HE WILL DECIDE ON NGT PLACEMENT AFTER HE SEES THE PATIENT. EDUCATED/TRAINED RN/JAVA APPLICATION DEVELOPER IN POSTED ORAL CARE/SUCTION AND NGT ASP PRECAUTIONS COMPLETE SKILLED DYSPHAGIA MANAGEMENT AND TX AND COG-COM EVAL/TX FOR COMMUNICATION TIPS. Addendum: 02/13/19 at 1111 by GABRIEL APPLE CLINICAL UNIT COORDINATOR NO FAMILY MEMBER ON FACE SHEET AND PATIENT LIKELY MAKING OWN DECISIONS
[2019-02-13] MEDS ORDERED: Vancomycin 1.5gm/NS Premix q24h IVPB SCH (12:00)
--- NOTE | 2019-02-13 12:40 | NUR ---
NURSE NOTES: Spoke with Dr. Yun Re: speech therapist recommendations fro NGT placement. MD stated no need for NGT and ok for patient to take oral medications. noted
[2019-02-13] MEDS: Azithromycin 250 MG in D5W 275 ML IV SCH (13:21)
--- NOTE | 2019-02-13 13:50 | Consultation ---
History of Present Illness General Chief Complaint: Altered Level of Consciousness Reason for Consultation: PNA Present Illness HPI 84 year old male with hx of HTN, Assisted living resident was taken to Er with CC of altered level of consciousness. He was less responsive than his usual. He was diagnosed to have RUL pneumonia, and azotemia. He was slightly tachycardic and somnolent. He is admitted to telemetry for further management. Allergies: Coded Allergies: No Known Allergies (Unverified , 02/12/19) Medication History Scheduled Amlodipine Besylate* (Amlodipine Besylate*), 5 MG ORAL DAILY, (Reported) Aspirin* (Aspir 81*), 81 MG ORAL DAILY, (Reported) Atorvastatin Calcium* (Lipitor*), 80 MG ORAL BEDTIME, (Reported) Chlorthalidone* (Chlorthalidone*), 25 MG ORAL DAILY, (Reported) Cranberry Fruit Concentrate (Cranberry), 500 MG PO DAILY, (Reported) Hydralazine Hcl* (Hydralazine Hcl*), 10 MG ORAL EVERY 8 HOURS, (Reported) Ipratropium/Albuterol Sulfate (DuoNeb 0.5-3(2.5)mg/3ml), 3 ML HHN Q4HR, ( Reported) Levetiracetam (Levetiracetam), 1,000 MG ORAL TWICE A DAY, (Reported) Sennosides (Senna Laxative), 8.6 MG PO DAILY, (Reported) Scheduled PRN Acetaminophen ([place]ap Arthritis Pain), 650 MG ORAL Q6HR PRN for ARTHRITIS PAIN, ( Reported) Hydrocodone Bit/Acetaminophen 7.5-325* ([place] 7.5-325*), 1 TAB ORAL Q6H PRN for For Pain, (Reported) Patient History Healthcare decision maker self Resuscitation status Full Code Advanced Directive on File No Past Medical/Surgical History Past Medical/Surgical History: (1) BPH (benign prostatic hyperplasia) Review of Systems All Other Systems: negative except mentioned in HPI Physical Exam General Appearance: WD/WN, no apparent distress Lines, tubes and drains: peripheral HEENT: normocephalic, atraumatic Neck: non-tender, normal alignment Respiratory/Chest: chest wall non-tender, rhonchi - left, rhonchi - right Cardiovascular/Chest: normal peripheral pulses, normal rate Abdomen: normal bowel sounds Genitourinary/Rectal: normal genital exam Extremities: normal range of motion, non-tender Neurologic: blind eyeletter II-XII grossly normal Last 24 Hour Vital Signs Date Time Temp Pulse Resp B/P (MAP) Pulse Ox O2 Delivery O2 Flow Rate FiO2 02/13/19 12:00 99.0 91 20 104/60 (75) 99 99 02/13/19 09:00 Room Air 2.0 02/13/19 08:43 98 133/71 02/13/19 08:30 98 Nasal Cannula 2.0 28 02/13/19 08:30 97 21 98 Nasal Cannula 2.0 28 02/13/19 08:00 95 02/13/19 08:00 99.5 99 22 133/71 (91) 98 98 02/13/19 04:00 98 02/13/19 04:00 99.5 98 18 127/73 (91) 96 98 02/13/19 00:00 97.5 91 20 137/76 (96) 99 91 02/13/19 00:00 91 02/12/19 21:54 98.1 02/12/19 21:00 Room Air 2.0 02/12/19 20:00 100.6 102 22 124/80 (95) 99 102 02/12/19 17:07 Nasal Cannula 2.0 02/12/19 16:47 97.1 103 22 136/84 (101) 95 103 02/12/19 16:30 93 02/12/19 15:00 99.3 98 26 135/68 95 Nasal Cannula 2.0 96 02/12/19 14:00 99.3 98 26 135/68 95 Room Air 96 Intake and Output 02/12/19 02/13/19 19:00 07:00 Intake Total 0 ml Output Total 400 ml Balance 0 ml -400 ml Intake Oral 0 ml Output Urine Total 400 ml Laboratory Tests Test 02/12/19 13:59 02/12/19 14:10 02/13/19 07:55 Lactic Acid Level 3.60 mmol/L (0.66-2.22) H Urine Color Yellow Urine Appearance Slightly cloudy Urine pH 5 (4.5-8.0) Urine Specific [place] 1.020 (1.005-1.035) Urine Protein 2+ (NEGATIVE) H Urine Glucose (UA) Negative (NEGATIVE) Urine Ketones Negative (NEGATIVE) Urine Blood 5+ (NEGATIVE) H Urine Nitrite Negative (NEGATIVE) Urine Bilirubin Negative (NEGATIVE) Urine Urobilinogen Normal MG/DL (0.0-1.0) Urine Leukocyte Esterase 1+ (NEGATIVE) H Urine RBC 5-10 /HPF (0 - 0) H Urine WBC Tntc /HPF (0 - 0) H Urine Squamous Epithelial Cells Few /LPF (NONE/OCC) Urine Bacteria Few /HPF (NONE) Urine Hyaline Casts 0-2 /LPF (NONE) H Urine Fine Granular Casts 2-4 /LPF (NONE) H Urine Eosinophils None seen (NONE SEEN) Urine Osmolality 743 mOsm/kg (429-449) H Urine Random Creatinine Pending Urine Random Microalbumin Pending Urine Random Sodium 64 mmol/L (20-110) Urine Microalbumin/Creatinine Ratio Pending White Blood Count 7.4 K/UL (4.8-10.8) Red Blood Count 4.13 M/UL (4.70-6.10) L Hemoglobin 12.1 G/DL (14.2-18.0) L Hematocrit 36.8 % (42.0-52.0) L Mean Corpuscular Volume 89 FL (80-99) Mean Corpuscular Hemoglobin 29.3 PG (27.0-31.0) Mean Corpuscular Hemoglobin Concent 32.9 G/DL (32.0-36.0) Red Cell Distribution Width 13.0 % (11.6-14.8) Platelet Count 105 K/UL (150-450) L Mean Platelet Volume 8.0 FL (6.5-10.1) Neutrophils (%) (Auto) % (45.0-75.0) Lymphocytes (%) (Auto) % (20.0-45.0) Monocytes (%) (Auto) % (1.0-10.0) Eosinophils (%) (Auto) % (0.0-3.0) Basophils (%) (Auto) % (0.0-2.0) Differential Total Cells Counted 100 Neutrophils % (Manual) 83 % (45-75) H Lymphocytes % (Manual) 10 % (20-45) L Monocytes % (Manual) 7 % (1-10) Eosinophils % (Manual) 0 % (0-3) Basophils % (Manual) 0 % (0-2) Band Neutrophils 0 % (0-8) Platelet Estimate Decreased L Platelet Morphology Normal Red Blood Cell Morphology Normal Sodium Level 137 MMOL/L (136-145) Potassium Level 3.6 MMOL/L (3.5-5.1) Chloride Level 104 MMOL/L (98-107) Carbon Dioxide Level 28 MMOL/L (21-32) Anion Gap 5 mmol/L (5-15) Blood Urea Nitrogen 37 mg/dL (7-18) H Creatinine 1.7 MG/DL (0.55-1.30) H Estimat Glomerular Filtration Rate mL/min (>60) Glucose Level 113 MG/DL (74-106) H Calcium Level 8.5 MG/DL (8.5-10.1) Phosphorus Level 2.7 MG/DL (2.5-4.9) Magnesium Level 1.9 MG/DL (1.8-2.4) Total Bilirubin 1.1 MG/DL (0.2-1.0) H Direct Bilirubin 0.3 MG/DL (0.0-0.3) Aspartate Amino Transf (AST/SGOT) 91 U/L (15-37) H Alanine Aminotransferase (ALT/SGPT) 30 U/L (12-78) Alkaline Phosphatase 39 U/L (46-116) L Total Protein 6.9 G/DL (6.4-8.2) Albumin 2.5 G/DL (3.4-5.0) L Globulin 4.4 g/dL Albumin/Globulin Ratio 0.6 (1.0-2.7) L Random Vancomycin Level 10.3 ug/mL Microbiology Date/Time Source Procedure Growth Status 02/12/19 18:45 Nasal Nares - Final Complete 02/12/19 18:45 Nasal Nares - Final Complete 02/12/19 14:10 Urine,Clean Catch Urine Culture - Preliminary NO GROWTH Resulted Height (Feet): 5 Height (Inches): 10.00 Weight (Pounds): 151 Medications Current Medications Medications (Trade) Dose Ordered Sig/Nixon Route PRN Reason Start Time Stop Time Status Last Admin Dose Admin Acetaminophen (Tylenol) 650 mg Q4H PRN ORAL fever 02/12/19 13:15 03/14/19 13:14 02/12/19 21:24 Acetaminophen/ Hydrocodone Bitart ([place] 7.5/325) 1 tab Q6H PRN ORAL For Pain 02/12/19 13:15 1/2/20 13:14 Albuterol/ Ipratropium (Albuterol/ Ipratropium) 3 ml Q4HRT HHN 02/13/19 15:00 02/18/19 14:59 Amlodipine Besylate (Norvasc) 5 mg DAILY ORAL 02/13/19 09:00 03/15/19 08:59 02/13/19 08:43 Aspirin (Ecotrin) 81 mg DAILY ORAL 02/13/19 09:00 03/15/19 08:59 02/13/19 08:43 Atorvastatin Calcium (Lipitor) 80 mg BEDTIME ORAL 02/12/19 21:00 03/14/19 20:59 02/12/19 21:23 Azithromycin 250 mg/Dextrose 275 ml @ 275 mls/hr Q24HRS IV 02/13/19 13:00 02/19/19 13:59 Cefepime HCl 1 gm/ Dextrose 55 ml @ 110 mls/hr Q24H IV 02/12/19 18:00 02/19/19 17:59 02/12/19 17:43 Dextrose/ Electrolytes 1,000 ml @ 75 mls/hr [id number] IV 02/12/19 17:00 03/14/19 16:59 02/13/19 06:55 Heparin Sodium (Porcine) (Heparin 5000 units/ml) 5,000 units EVERY 12 HOURS SUBQ 02/12/19 21:00 03/14/19 20:59 02/13/19 08:44 Levetiracetam (Keppra) 1,000 mg Q12HR ORAL 02/12/19 21:00 03/14/19 20:59 02/13/19 08:43 Nitroglycerin (Ntg) 0.4 mg Q5M PRN SL Prn Chest Pain 02/12/19 13:15 03/14/19 13:14 Ondansetron HCl (Zofran) 4 mg Q6H PRN IVP Nausea & Vomiting 02/12/19 13:15 03/14/19 13:14 Polyethylene Glycol (Miralax) 17 gm DAILYPRN PRN ORAL Constipation 02/12/19 13:15 03/14/19 13:14 Promethazine HCl/ Codeine (Phenergan with Codeine) 5 ml Q4H PRN ORAL For Cough 02/12/19 13:15 03/14/19 13:14 Temazepam (Restoril) 15 mg HSPRN PRN ORAL Insomnia 02/12/19 13:15 02/19/19 13:14 Vancomycin HCl (Vanco rx to dose) 1 ea DAILY PRN MISC Per rx protocol 02/12/19 13:15 03/14/19 13:14 Vancomycin/Sodium Chloride 275 ml @ 137.5 mls/ hr ONCE IVPB 02/13/19 12:00 02/13/19 14:00 02/13/19 11:58 Assessment/Plan Problem List: (1) Pneumonia ICD Codes: J18.9 - Pneumonia, unspecified organism SNOMED: 812069352, 5506902 (2) Sinus tachycardia ICD Codes: R00.0 - Tachycardia, unspecified SNOMED: 30806023 (3) JOEL (acute kidney injury) ICD Codes: N17.9 - Acute kidney failure, unspecified SNOMED: 04099953, 9218340 (4) Altered level of consciousness ICD Codes: R40.4 - Transient alteration of awareness SNOMED: 0785637 (5) BPH (benign prostatic hyperplasia) ICD Codes: N40.0 - Benign prostatic hyperplasia without lower urinary tract symptoms SNOMED: 351556071 Assessment/Plan: respiratory treatment titrate fio2 to sat of 92% renal Us iv fluids check sputum cardiac evaluation for optimizing cardiac meds. Cristian Yun MD Feb 13, 2019 13:50
[2019-02-13] MEDS: Albuterol/Ipratropium 3ml neb HHN SCH ×3 (14:14→23:09)
--- NOTE | 2019-02-13 16:36 | NUR ---
CASE MANAGEMENT:REVIEW 84 YR OLD MALE FROM HOME AT [facility] CC;ALTERED LOC SI;ALTERED LOC. JOEL. PNA. 100.6 103 26 136/86 95% 2L NC BUN=39 CR=2.1 AST=62 TOT CR BXB=0626 URIC AC=10.9 UA = BLOOD, PROTEIN, +RBC, IS;ROCEPHIN ZITHROMAX HEPARIN NITROGLYCERIN IVF NS ADMITTED TO TELE DCP;TO [facility]
[2019-02-13] MEDS: Cefepime HCl 1 GM in D5W 55 ML IV SCH (17:55)
--- NOTE | 2019-02-13 19:20 | NUR ---
NURSE NOTES: Received report form JAKY Dawson- pt. in bed awake, pt. appears to be alert to name, no signs or symptoms fo acute cardiac or respiratory distress noted, bed alarm on, side rails up x's3 and safety brakes engaged, pt. appears to be sating well on 2L NC- no distress noted, bed alarm on, side rails up x's3 and safety brakes engaged, call light within easy reach, pt. appears to be resting comfortably, pt. appears to be clean and dry, RFA 20G running D5 1/2 NS w/ 20kcl at 50cc/hr- IV intact and patent, side rails padded for seizure precautions- no seizure activity noted, safety measures continued, will continue with plan of care. Addendum: 02/13/19 at 1949 by MASSIMO PEREZ RN RN pt. also has Rt. AC 20G - IV intact and patent.
--- NOTE | 2019-02-13 19:41 | NUR ---
HAND-OFF: Report given to Edy Barrientos. Plan of car endorsed.
[2019-02-13] MEDS: Atorvastatin 80mg tab ORAL SCH (20:22)
[2019-02-14] MEDS: Albuterol/Ipratropium 3ml neb HHN SCH ×6 (02:03→23:27)
[2019-02-14 04:00] VITALS: BP 117/69
[2019-02-14 06:47] LABS: BASOPHILS % (AUTO) 0.5 % (0.0-2.0); HEMATOCRIT 33.7 % (42.0-52.0); HEMOGLOBIN 11.2 G/DL (14.2-18.0); LYMPHOCYTES % (AUTO) 10.6 % (20.0-45.0); MEAN CORPUSCULAR VOLUME 88 FL (80-99); MONOCYTES % (AUTO) 5.3 % (1.0-10.0); NEUTROPHILS % (AUTO) 82.7 % (45.0-75.0); PLATELET COUNT 116 K/UL (150-450); RED BLOOD COUNT 3.85 M/UL (4.70-6.10); RED CELL DISTRIBUTION WIDTH 12.6 % (11.6-14.8); WHITE BLOOD COUNT 6.7 K/UL (4.8-10.8)
--- NOTE | 2019-02-14 06:54 | NUR ---
HAND-OFF: Report given to JAKY Dawson- pt. remains stable and no signs of distress noted. Nurse aware to f/u on am labs as they are still pending.
[2019-02-14 07:32] LABS: ALANINE AMINOTRANSFERASE 27 U/L (12-78); ALBUMIN 2.4 G/DL (3.4-5.0); ALBUMIN/GLOBULIN RATIO 0.6 (1.0-2.7); ALKALINE PHOSPHATASE 52 U/L (46-116); ASPARTATE AMINO TRANSFERASE 88 U/L (15-37); BILIRUBIN,TOTAL 1.1 MG/DL (0.2-1.0); BLOOD UREA NITROGEN 27 mg/dL (7-18); CALCIUM 8.4 MG/DL (8.5-10.1); CHLORIDE 102 MMOL/L (98-107); CREATININE 1.6 MG/DL (0.55-1.30); POTASSIUM 3.4 MMOL/L (3.5-5.1); SODIUM 135 MMOL/L (136-145)
[2019-02-14 07:36] LABS: BILIRUBIN,DIRECT 0.3 MG/DL (0.0-0.3); CARBON DIOXIDE 27 MMOL/L (21-32)
--- NOTE | 2019-02-14 07:52 | NUR ---
NURSE NOTES: Received patient in bed sleeping comfortably. No s/s of distress. oxygen at 3L/min via nasal cannula. Fall precautions in place. call ritter within patients reach will follow.
[2019-02-14 08:00] VITALS: BP 108/62
[2019-02-14] MEDS: Aspirin EC 81mg tab ORAL SCH (09:01)
[2019-02-14] MEDS: Heparin 5000 units/ml inj SUBQ SCH ×2 (09:07→20:27)
--- NOTE | 2019-02-14 10:00 | Diagnostic Imaging Report ---
EXAM: XR Chest, 1 View CLINICAL HISTORY: DYSPNEA TECHNIQUE: Frontal view of the chest. COMPARISON: Chest radiograph on 02/12/2019 FINDINGS: Hardware: None. Lungs/pleura: Low lung volumes. Similar patchy opacities throughout the lungs, most prominent in the right upper lobe and left lung base. Small left pleural effusion. Heart/mediastinum: Stable enlargement of the cardiomediastinal silhouette. Soft tissues: Unremarkable. Bones: No acute fracture. Degenerative changes of the acromioclavicular joints and spine. Upper abdomen: Normal. IMPRESSION: Similar patchy opacities throughout the lungs, most prominent in the right upper lobe and left lung base, concerning for pulmonary edema and/or pneumonia. Small left pleural effusion.
[2019-02-14 10:53] LABS: PHOSPHORUS 2.8 MG/DL (2.5-4.9)
--- NOTE | 2019-02-14 11:41 | Internal Med Progress Note ---
Subjective Date of Service: Feb 14, 2019 Physician Name Tony Lutz Attending Physician Robert Bergman MD Current Medications Medications (Trade) Dose Ordered Sig/Nixon Route PRN Reason Start Time Stop Time Status Last Admin Dose Admin Acetaminophen (Tylenol) 650 mg Q4H PRN ORAL fever 02/12/19 13:15 03/14/19 13:14 02/12/19 21:24 Acetaminophen/ Hydrocodone Bitart ([place] 7.5/325) 1 tab Q6H PRN ORAL For Pain 02/12/19 13:15 02/19/19 13:14 Albuterol/ Ipratropium (Albuterol/ Ipratropium) 3 ml Q4HRT HHN 02/13/19 15:00 02/18/19 14:59 02/14/19 11:14 Amlodipine Besylate (Norvasc) 5 mg DAILY ORAL 02/13/19 09:00 03/15/19 08:59 02/14/19 09:01 Aspirin (Ecotrin) 81 mg DAILY ORAL 02/13/19 09:00 03/15/19 08:59 02/14/19 09:01 Atorvastatin Calcium (Lipitor) 80 mg BEDTIME ORAL 02/12/19 21:00 03/14/19 20:59 02/13/19 20:22 Azithromycin 250 mg/Dextrose 275 ml @ 275 mls/hr Q24HRS IV 02/13/19 13:00 02/19/19 13:59 02/13/19 13:21 Cefepime HCl 1 gm/ Dextrose 55 ml @ 110 mls/hr Q24H IV 02/12/19 18:00 02/19/19 17:59 02/13/19 17:55 Dextrose/ Electrolytes 1,000 ml @ 50 mls/hr Q20H IV 02/13/19 14:00 03/14/19 13:59 02/13/19 20:21 Heparin Sodium (Porcine) (Heparin 5000 units/ml) 5,000 units EVERY 12 HOURS SUBQ 02/12/19 21:00 03/14/19 20:59 02/14/19 09:07 Levetiracetam (Keppra) 1,000 mg Q12HR ORAL 02/12/19 21:00 03/14/19 20:59 02/14/19 09:01 Nitroglycerin (Ntg) 0.4 mg Q5M PRN SL Prn Chest Pain 02/12/19 13:15 03/14/19 13:14 Ondansetron HCl (Zofran) 4 mg Q6H PRN IVP Nausea & Vomiting 02/12/19 13:15 03/14/19 13:14 Polyethylene Glycol (Miralax) 17 gm DAILYPRN PRN ORAL Constipation 02/12/19 13:15 03/14/19 13:14 Promethazine HCl/ Codeine (Phenergan with Codeine) 5 ml Q4H PRN ORAL For Cough 02/12/19 13:15 03/14/19 13:14 Temazepam (Restoril) 15 mg HSPRN PRN ORAL Insomnia 02/12/19 13:15 02/19/19 13:14 02/13/19 22:36 Vancomycin HCl (Vanco rx to dose) 1 ea DAILY PRN MISC Per rx protocol 02/12/19 13:15 03/14/19 13:14 Allergies: Coded Allergies: No Known Allergies (Unverified , 02/12/19) ROS Limited/Unobtainable: Yes Subjective 84 YO M admitted with fever and cough. Now RUL pneumonia. Cover for Int Med- DR Bergman Objective Last Vital Signs Date Time Temp Pulse Resp B/P (MAP) Pulse Ox O2 Delivery O2 Flow Rate FiO2 02/14/19 11:19 88 22 99 Nasal Cannula 2.0 28 87 22 98 02/14/19 09:01 117/69 02/14/19 08:00 96.7 Laboratory Tests Test 02/14/19 05:15 White Blood Count 6.7 K/UL (4.8-10.8) Red Blood Count 3.85 M/UL (4.70-6.10) L Hemoglobin 11.2 G/DL (14.2-18.0) L Hematocrit 33.7 % (42.0-52.0) L Mean Corpuscular Volume 88 FL (80-99) Mean Corpuscular Hemoglobin 29.1 PG (27.0-31.0) Mean Corpuscular Hemoglobin Concent 33.3 G/DL (32.0-36.0) Red Cell Distribution Width 12.6 % (11.6-14.8) Platelet Count 116 K/UL (150-450) L Mean Platelet Volume 7.4 FL (6.5-10.1) Neutrophils (%) (Auto) 82.7 % (45.0-75.0) H Lymphocytes (%) (Auto) 10.6 % (20.0-45.0) L Monocytes (%) (Auto) 5.3 % (1.0-10.0) Eosinophils (%) (Auto) 1.0 % (0.0-3.0) Basophils (%) (Auto) 0.5 % (0.0-2.0) Sodium Level 135 MMOL/L (136-145) L Potassium Level 3.4 MMOL/L (3.5-5.1) L Chloride Level 102 MMOL/L (98-107) Carbon Dioxide Level 27 MMOL/L (21-32) Blood Urea Nitrogen 27 mg/dL (7-18) H Creatinine 1.6 MG/DL (0.55-1.30) H Estimat Glomerular Filtration Rate mL/min (>60) Glucose Level 109 MG/DL (74-106) H Calcium Level 8.4 MG/DL (8.5-10.1) L Phosphorus Level 2.8 MG/DL (2.5-4.9) Magnesium Level 1.8 MG/DL (1.8-2.4) Total Bilirubin 1.1 MG/DL (0.2-1.0) H Direct Bilirubin 0.3 MG/DL (0.0-0.3) Aspartate Amino Transf (AST/SGOT) 88 U/L (15-37) H Alanine Aminotransferase (ALT/SGPT) 27 U/L (12-78) Alkaline Phosphatase 52 U/L (46-116) Pro-B-Type Natriuretic Peptide 505 pg/mL (0-125) H Total Protein 6.7 G/DL (6.4-8.2) Albumin 2.4 G/DL (3.4-5.0) L Globulin 4.3 g/dL Albumin/Globulin Ratio 0.6 (1.0-2.7) L Microbiology Date/Time Source Procedure Growth Status 02/12/19 18:45 Nasal Nares - Final Complete 02/12/19 18:45 Nasal Nares - Final Complete 02/12/19 13:40 Nasal Nares MRSA Culture - Final NO METHICILLIN RESISTANT STAPH AUREUS... Complete 02/12/19 14:10 Urine,Clean Catch Urine Culture - Final Gram Positive Cocci Complete 02/12/19 13:40 Rectal Mucosa VRE Culture - Final NO VANCOMYCIN RESISTANT ENTEROCOCCUS ... Complete Intake and Output 02/13/19 02/14/19 19:00 07:00 Intake Total 50 ml 483 ml Output Total 425 ml Balance -375 ml 483 ml IV Total 50 ml 483 ml Output Urine Total 425 ml # Voids 2 # Bowel Movements 1 Objective Objective GENERAL: The patient is cachectic, malnutrition and more responsive HEAD AND NECK: Pupils are reactive to light. Anicteric. NECK: Supple. No JVD. LUNGS: Good air entry. + expiratory wheezing, + basal crackles. ABDOMEN: Soft, nondistended, and nontender. Positive bowel sounds. EXTREMITIES: No cyanosis, clubbing, or edema. NEUROLOGIC: Very limited secondary to the patient's status. However, the patient is moving extremities spontaneously. Gait was not assessed due to the patient's status. Assessment/Plan Assessment/Plan Assessment/Plan Assessment/Plan ASSESSMENT: 1. Altered mental status 2. Acute kidney injury and chronic renal insufficiency. 3. Dehydration and hypovolemia. 4. Pneumonia. 5. Hypertension. 6. Dyslipidemia. 7. Chronic obstructive pulmonary disease. 8. RUL pneumonia PLAN: 1. Admit the patient to monitored unit. 2. We will follow up with Dr. Yun, Pulmonary Critical Care and Dr. Romero Sunshine from Nephrology. 3. On IV hydration. 4. Monitor labs and cultures. 5. DVT prophylaxis with heparin subcutaneous. 6. Follow up with the nebulizer treatment as needed. 7. antibiotic= cefepime, Zithromax, and vancomycin per ID=Dr Banda 8. We will follow up with the viral study. 9. Code status: Full Code. Tony Lutz MD Feb 14, 2019 11:41
--- NOTE | 2019-02-14 11:51 | Pulmonology Progress Note ---
Assessment/Plan Problems: (1) Pneumonia (2) Sinus tachycardia (3) JOEL (acute kidney injury) (4) Altered level of consciousness (5) BPH (benign prostatic hyperplasia) Assessment/Plan respiratory treatment titrate fio2 to sat of 92% renal Us reviewed iv fluids, keep at 50 cc/hour check sputum not done yet cardiac evaluation for optimizing cardiac meds. Subjective ROS Limited/Unobtainable: No Constitutional: Reports: no symptoms HEENT: Repors: no symptoms Respiratory: Reports: no symptoms Allergies: Coded Allergies: No Known Allergies (Unverified , 02/12/19) Objective Last 24 Hour Vital Signs Date Time Temp Pulse Resp B/P (MAP) Pulse Ox O2 Delivery O2 Flow Rate FiO2 02/14/19 11:19 88 22 99 Nasal Cannula 2.0 28 87 22 98 02/14/19 09:01 92 117/69 02/14/19 09:00 Nasal Cannula 2.0 02/14/19 08:00 85 02/14/19 08:00 85 02/14/19 08:00 96.7 20 19 108/62 (77) 96 02/14/19 07:56 92 22 99 Nasal Cannula 2.0 28 89 20 97 02/14/19 07:51 98 Nasal Cannula 2.0 28 02/14/19 07:51 93 20 98 Nasal Cannula 2.0 28 02/14/19 04:00 2.0 02/14/19 04:00 98.6 94 20 117/69 (85) 96 02/14/19 03:34 94 02/14/19 02:15 78 20 98 Nasal Cannula 2.0 74 20 97 02/14/19 00:08 96 02/14/19 00:00 2.0 02/13/19 23:45 98.8 96 20 130/61 (84) 97 02/13/19 23:09 82 20 100 Nasal Cannula 2.0 78 20 98 02/13/19 21:00 Room Air 2.0 02/13/19 20:00 2.0 02/13/19 20:00 98.8 104 20 125/66 (85) 97 104 02/13/19 19:34 97 Nasal Cannula 2.0 28 02/13/19 19:33 88 24 98 Nasal Cannula 2.0 28 02/13/19 19:31 90 22 99 Nasal Cannula 2.0 28 88 24 97 02/13/19 19:01 90 02/13/19 16:00 96.6 95 20 117/66 (83) 97 95 02/13/19 16:00 97 02/13/19 14:27 95 23 100 Nasal Cannula 2.0 28 92 22 100 02/13/19 12:00 99.0 91 20 104/60 (75) 99 99 02/13/19 12:00 86 Intake and Output 02/13/19 02/14/19 19:00 07:00 Intake Total 50 ml 483 ml Output Total 425 ml Balance -375 ml 483 ml IV Total 50 ml 483 ml Output Urine Total 425 ml # Voids 2 # Bowel Movements 1 Objective General Appearance: WD/WN, no apparent distress Lines, tubes and drains: peripheral HEENT: normocephalic, atraumatic Neck: non-tender, normal alignment Respiratory/Chest: chest wall non-tender, lungs clear Cardiovascular/Chest: normal peripheral pulses, regular rhythm Abdomen: normal bowel sounds, non tender Skin Exam: normal pigmentation 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 Complete 02/12/19 14:10 Urine,Clean Catch Urine Culture - Final Gram Positive Cocci Complete 02/12/19 13:40 Rectal Mucosa VRE Culture - Final NO VANCOMYCIN RESISTANT ENTEROCOCCUS ... Complete Laboratory Tests 02/14/19 05:15: White Blood Count 6.7, Red Blood Count 3.85L, Hemoglobin 11.2L, Hematocrit 33.7L , Mean Corpuscular Volume 88, Mean Corpuscular Hemoglobin 29.1, Mean Corpuscular Hemoglobin Concent 33.3, Red Cell Distribution Width 12.6, Platelet Count 116L, Mean Platelet Volume 7.4, Neutrophils (%) (Auto) 82.7H, Lymphocytes (%) (Auto) 10.6L, Monocytes (%) (Auto) 5.3, Eosinophils (%) (Auto) 1.0, Basophils (%) (Auto) 0.5, Sodium Level 135L, Potassium Level 3.4L, Chloride Level 102, Carbon Dioxide Level 27, Blood Urea Nitrogen 27H, Creatinine 1.6H, Estimat Glomerular Filtration Rate , Glucose Level 109H, Calcium Level 8.4L, Phosphorus Level 2.8, Magnesium Level 1.8, Total Bilirubin 1.1H, Direct Bilirubin 0.3, Aspartate Amino Transf (AST/SGOT) 88H, Alanine Aminotransferase ( ALT/SGPT) 27, Alkaline Phosphatase 52, Pro-B-Type Natriuretic Peptide 505H, Total Protein 6.7, Albumin 2.4L, Globulin 4.3, Albumin/Globulin Ratio 0.6L Current Medications Medications (Trade) Dose Ordered Sig/Nixon Route PRN Reason Start Time Stop Time Status Last Admin Dose Admin Acetaminophen (Tylenol) 650 mg Q4H PRN ORAL fever 02/12/19 13:15 03/14/19 13:14 02/12/19 21:24 Acetaminophen/ Hydrocodone Bitart ([place] 7.5/325) 1 tab Q6H PRN ORAL For Pain 02/12/19 13:15 02/19/19 13:14 Albuterol/ Ipratropium (Albuterol/ Ipratropium) 3 ml Q4HRT HHN 02/13/19 15:00 02/18/19 14:59 02/14/19 11:14 Amlodipine Besylate (Norvasc) 5 mg DAILY ORAL 02/13/19 09:00 03/15/19 08:59 02/14/19 09:01 Aspirin (Ecotrin) 81 mg DAILY ORAL 02/13/19 09:00 03/15/19 08:59 02/14/19 09:01 Atorvastatin Calcium (Lipitor) 80 mg BEDTIME ORAL 02/12/19 21:00 03/14/19 20:59 02/13/19 20:22 Azithromycin 250 mg/Dextrose 275 ml @ 275 mls/hr Q24HRS IV 02/13/19 13:00 02/19/19 13:59 02/13/19 13:21 Cefepime HCl 1 gm/ Dextrose 55 ml @ 110 mls/hr Q24H IV 02/12/19 18:00 02/19/19 17:59 02/13/19 17:55 Dextrose/ Electrolytes 1,000 ml @ 50 mls/hr Q20H IV 02/13/19 14:00 03/14/19 13:59 02/13/19 20:21 Heparin Sodium (Porcine) (Heparin 5000 units/ml) 5,000 units EVERY 12 HOURS SUBQ 02/12/19 21:00 03/14/19 20:59 02/14/19 09:07 Levetiracetam (Keppra) 1,000 mg Q12HR ORAL 02/12/19 21:00 03/14/19 20:59 02/14/19 09:01 Nitroglycerin (Ntg) 0.4 mg Q5M PRN SL Prn Chest Pain 02/12/19 13:15 03/14/19 13:14 Ondansetron HCl (Zofran) 4 mg Q6H PRN IVP Nausea & Vomiting 02/12/19 13:15 03/14/19 13:14 Polyethylene Glycol (Miralax) 17 gm DAILYPRN PRN ORAL Constipation 02/12/19 13:15 03/14/19 13:14 Promethazine HCl/ Codeine (Phenergan with Codeine) 5 ml Q4H PRN ORAL For Cough 02/12/19 13:15 03/14/19 13:14 Temazepam (Restoril) 15 mg HSPRN PRN ORAL Insomnia 02/12/19 13:15 02/19/19 13:14 02/13/19 22:36 Vancomycin HCl (Vanco rx to dose) 1 ea DAILY PRN MISC Per rx protocol 02/12/19 13:15 03/14/19 13:14 Cristian Yun MD Feb 14, 2019 11:51
[2019-02-14 12:00] VITALS: BP 112/60
[2019-02-14] MEDS: Azithromycin 250 MG in D5W 275 ML IV SCH (12:30)
--- NOTE | 2019-02-14 15:14 | Infectious Diseases Prog Note ---
Assessment/Plan Assessment/Plan Assessment/Plan: 84 yo male with PMHx of COPD, HLD, and HTN who was sent to the ED on 02/12/19 with AMS. CAP CXR RUL infltrate Inf Screen (-) Low grade fever; improving No leukocytosis UTI UA (+) Urine Cx 02/12/19 - <10k GPC AMS JOEL COPD HLD HTN PLAN: - Continue Cefepime and vancomycin #3, Azithromycin #3 - pending Cx - f/u Cx - Monitor CBC and Temps -legionella ag urine Thank you for this consult. [facility] will continue to follow the patient with you during this hospitalization. Subjective Allergies: Coded Allergies: No Known Allergies (Unverified , 02/12/19) Subjective afebrile >36hrs at 2l NC no leukocytosis Objective Vital Signs Last 24 Hour Vital Signs Date Time Temp Pulse Resp B/P (MAP) Pulse Ox O2 Delivery O2 Flow Rate FiO2 02/14/19 12:00 98.6 73 19 112/60 (77) 98 02/14/19 11:19 88 22 99 Nasal Cannula 2.0 28 87 22 98 02/14/19 09:01 92 117/69 02/14/19 09:00 Nasal Cannula 2.0 02/14/19 08:00 85 02/14/19 08:00 96.7 80 19 108/62 (77) 98 02/14/19 08:00 85 02/14/19 07:56 92 22 99 Nasal Cannula 2.0 28 89 20 97 02/14/19 07:51 98 Nasal Cannula 2.0 28 02/14/19 07:51 93 20 98 Nasal Cannula 2.0 28 02/14/19 04:00 2.0 02/14/19 04:00 98.6 94 20 117/69 (85) 96 02/14/19 03:34 94 02/14/19 02:15 78 20 98 Nasal Cannula 2.0 28 74 20 97 02/14/19 00:08 96 02/14/19 00:00 2.0 02/13/19 23:45 98.8 96 20 130/61 (84) 97 02/13/19 23:09 82 20 100 Nasal Cannula 2.0 28 78 20 98 02/13/19 21:00 Room Air 2.0 02/13/19 20:00 2.0 02/13/19 20:00 98.8 104 20 125/66 (85) 97 104 02/13/19 19:34 97 Nasal Cannula 2.0 28 02/13/19 19:33 88 24 98 Nasal Cannula 2.0 28 02/13/19 19:31 90 22 99 Nasal Cannula 2.0 28 88 24 97 02/13/19 19:01 90 02/13/19 16:00 96.6 95 20 117/66 (83) 97 95 02/13/19 16:00 97 Height (Feet): 5 Height (Inches): 10.00 Weight (Pounds): 151 Objective Gen: NAD HEENT: NCAT, MMM, EOMI, PERRL, No Oral lesion, no scleral icterus NECK: full range of motion, supple, no meningismus, No LAD, No JVD LUNGS: Coarse B/L, No Wheezing, No Accessory muscle use CARDS: RRR, S1, S2, No M/R/G, ABD: Soft, NT, ND, No R/G, + BS, No HSM, No Masses : Deferred Ext: C/C/E, Pulses 2+ B/L (DP, Rad): NEURO: A/O x 1, Strength and Sensation decreased PSYCH: Normal mood and affect SKIN: Warm/dry, No rashes Microbiology Date/Time Source Procedure Growth Status 02/12/19 18:45 Nasal Nares - Final Complete 02/12/19 18:45 Nasal Nares - Final Complete 02/12/19 13:40 Nasal Nares MRSA Culture - Final NO METHICILLIN RESISTANT STAPH AUREUS... Complete 02/12/19 14:10 Urine,Clean Catch Urine Culture - Final Gram Positive Cocci Complete 02/12/19 13:40 Rectal Mucosa VRE Culture - Final NO VANCOMYCIN RESISTANT ENTEROCOCCUS ... Complete Laboratory Tests Test 02/14/19 05:15 White Blood Count 6.7 K/UL (4.8-10.8) Red Blood Count 3.85 M/UL (4.70-6.10) L Hemoglobin 11.2 G/DL (14.2-18.0) L Hematocrit 33.7 % (42.0-52.0) L Mean Corpuscular Volume 88 FL (80-99) Mean Corpuscular Hemoglobin 29.1 PG (27.0-31.0) Mean Corpuscular Hemoglobin Concent 33.3 G/DL (32.0-36.0) Red Cell Distribution Width 12.6 % (11.6-14.8) Platelet Count 116 K/UL (150-450) L Mean Platelet Volume 7.4 FL (6.5-10.1) Neutrophils (%) (Auto) 82.7 % (45.0-75.0) H Lymphocytes (%) (Auto) 10.6 % (20.0-45.0) L Monocytes (%) (Auto) 5.3 % (1.0-10.0) Eosinophils (%) (Auto) 1.0 % (0.0-3.0) Basophils (%) (Auto) 0.5 % (0.0-2.0) Sodium Level 135 MMOL/L (136-145) L Potassium Level 3.4 MMOL/L (3.5-5.1) L Chloride Level 102 MMOL/L (98-107) Carbon Dioxide Level 27 MMOL/L (21-32) Blood Urea Nitrogen 27 mg/dL (7-18) H Creatinine 1.6 MG/DL (0.55-1.30) H Estimat Glomerular Filtration Rate mL/min (>60) Glucose Level 109 MG/DL (74-106) H Calcium Level 8.4 MG/DL (8.5-10.1) L Phosphorus Level 2.8 MG/DL (2.5-4.9) Magnesium Level 1.8 MG/DL (1.8-2.4) Total Bilirubin 1.1 MG/DL (0.2-1.0) H Direct Bilirubin 0.3 MG/DL (0.0-0.3) Aspartate Amino Transf (AST/SGOT) 88 U/L (15-37) H Alanine Aminotransferase (ALT/SGPT) 27 U/L (12-78) Alkaline Phosphatase 52 U/L (46-116) Pro-B-Type Natriuretic Peptide 505 pg/mL (0-125) H Total Protein 6.7 G/DL (6.4-8.2) Albumin 2.4 G/DL (3.4-5.0) L Globulin 4.3 g/dL Albumin/Globulin Ratio 0.6 (1.0-2.7) L Current Medications Medications (Trade) Dose Ordered Sig/Nixon Route PRN Reason Start Time Stop Time Status Last Admin Dose Admin Acetaminophen (Tylenol) 650 mg Q4H PRN ORAL fever 02/12/19 13:15 03/14/19 13:14 02/12/19 21:24 Acetaminophen/ Hydrocodone Bitart ([place] 7.5/325) 1 tab Q6H PRN ORAL For Pain 02/12/19 13:15 02/19/19 13:14 Albuterol/ Ipratropium (Albuterol/ Ipratropium) 3 ml Q4HRT HHN 02/13/19 15:00 02/18/19 14:59 02/14/19 11:14 Amlodipine Besylate (Norvasc) 5 mg DAILY ORAL 02/13/19 09:00 03/15/19 08:59 02/14/19 09:01 Aspirin (Ecotrin) 81 mg DAILY ORAL 02/13/19 09:00 03/15/19 08:59 02/14/19 09:01 Atorvastatin Calcium (Lipitor) 80 mg BEDTIME ORAL 02/12/19 21:00 03/14/19 20:59 02/13/19 20:22 Azithromycin 250 mg/Dextrose 275 ml @ 275 mls/hr Q24HRS IV 02/13/19 13:00 02/19/19 13:59 02/14/19 12:30 Cefepime HCl 1 gm/ Dextrose 55 ml @ 110 mls/hr Q24H IV 02/12/19 18:00 02/19/19 17:59 02/13/19 17:55 Dextrose/ Electrolytes 1,000 ml @ 50 mls/hr Q20H IV 02/13/19 14:00 03/14/19 13:59 02/13/19 20:21 Heparin Sodium (Porcine) (Heparin 5000 units/ml) 5,000 units EVERY 12 HOURS SUBQ 02/12/19 21:00 03/14/19 20:59 02/14/19 09:07 Levetiracetam (Keppra) 1,000 mg Q12HR ORAL 02/12/19 21:00 03/14/19 20:59 02/14/19 09:01 Nitroglycerin (Ntg) 0.4 mg Q5M PRN SL Prn Chest Pain 02/12/19 13:15 03/14/19 13:14 Ondansetron HCl (Zofran) 4 mg Q6H PRN IVP Nausea & Vomiting 02/12/19 13:15 03/14/19 13:14 Polyethylene Glycol (Miralax) 17 gm DAILYPRN PRN ORAL Constipation 02/12/19 13:15 03/14/19 13:14 Promethazine HCl/ Codeine (Phenergan with Codeine) 5 ml Q4H PRN ORAL For Cough 02/12/19 13:15 03/14/19 13:14 Temazepam (Restoril) 15 mg HSPRN PRN ORAL Insomnia 02/12/19 13:15 02/19/19 13:14 02/13/19 22:36 Vancomycin HCl (Vanco rx to dose) 1 ea DAILY PRN MISC Per rx protocol 02/12/19 13:15 03/14/19 13:14 Jacinda Jack M.D. Feb 14, 2019 15:14
[2019-02-14 16:00] VITALS: BP 123/71
[2019-02-14] MEDS: Cefepime HCl 1 GM in D5W 55 ML IV SCH (17:24)
--- NOTE | 2019-02-14 19:30 | NUR ---
NURSE NOTES: Report received form JAKY Dawson. Observed pt lying in the bed, awake, c/o pain at stomach, aching and cramping 5/10 noted. PRN med will be given. NC 2L with no SOB. ABD soft and round. Condom catheter in placed. IV on R FA 20G running D5 1/2 NS w 20meq KCL at 50cc/hr. Bed in the lowest position. Side rails up x2. Call light within reach. Will continue to monitor.
--- NOTE | 2019-02-14 19:33 | NUR ---
HAND-OFF: Report given to Edy Mckeon.Patient stable. Plan of care endorsed.
[2019-02-14 20:00] VITALS: BP 118/72
[2019-02-14] MEDS: Atorvastatin 80mg tab ORAL SCH (20:26)
--- NOTE | 2019-02-14 23:32 | NUR ---
NURSE NOTES: Pt sleeping in the bed, calm and comfortable. SR with publication manager. no acute distress noted at this time. Will continue to monitor.
[2019-02-15] VITALS: BP 106/56
[2019-02-15] MEDS: Albuterol/Ipratropium 3ml neb HHN SCH ×6 (03:12→23:37)
[2019-02-15 04:00] VITALS: BP 108/64
[2019-02-15] MEDS: D5 1/2NS w/KCl 20mEq 1,000 ML IV SCH (06:00)
--- NOTE | 2019-02-15 07:20 | NUR ---
NURSE NOTES: handoff received from JAKY Mckeon. patient received awake and alert on 2 litres nasal cannula, Iv site is clean dry and intact running prescribed fluids, no acute signs of distress noted. bed in the low and locked position with call light within reach, will continue to monitor patient.
[2019-02-15 07:53] LABS: BASOPHILS % (AUTO) 0.7 % (0.0-2.0); EOSINOPHILS % (AUTO) 2.5 % (0.0-3.0); HEMATOCRIT 37.2 % (42.0-52.0); HEMOGLOBIN 12.1 G/DL (14.2-18.0); LYMPHOCYTES % (AUTO) 12.6 % (20.0-45.0); MEAN CORPUSCULAR VOLUME 90 FL (80-99); MONOCYTES % (AUTO) 7.3 % (1.0-10.0); NEUTROPHILS % (AUTO) 76.9 % (45.0-75.0); PLATELET COUNT 123 K/UL (150-450); RED BLOOD COUNT 4.12 M/UL (4.70-6.10); RED CELL DISTRIBUTION WIDTH 12.5 % (11.6-14.8); WHITE BLOOD COUNT 5.9 K/UL (4.8-10.8)
[2019-02-15 08:00] VITALS: BP 114/48
--- NOTE | 2019-02-15 08:03 | NUR ---
HAND-OFF: Report given to JAKY Damon. No distress noted at this time.
[2019-02-15 08:19] LABS: PHOSPHORUS 2.8 MG/DL (2.5-4.9)
[2019-02-15 08:21] LABS: ALANINE AMINOTRANSFERASE 34 U/L (12-78); ALBUMIN 2.4 G/DL (3.4-5.0); ALBUMIN/GLOBULIN RATIO 0.5 (1.0-2.7); ALKALINE PHOSPHATASE 49 U/L (46-116); ANION GAP 5 mmol/L (5-15); ASPARTATE AMINO TRANSFERASE 76 U/L (15-37); BILIRUBIN,TOTAL 1.3 MG/DL (0.2-1.0); BLOOD UREA NITROGEN 19 mg/dL (7-18); CALCIUM 8.2 MG/DL (8.5-10.1); CARBON DIOXIDE 30 MMOL/L (21-32); CHLORIDE 104 MMOL/L (98-107); CREATININE 1.4 MG/DL (0.55-1.30); POTASSIUM 3.3 MMOL/L (3.5-5.1); SODIUM 139 MMOL/L (136-145)
[2019-02-15 08:22] LABS: BILIRUBIN,DIRECT 0.4 MG/DL (0.0-0.3)
[2019-02-15] MEDS: Heparin 5000 units/ml inj SUBQ SCH ×2 (09:00→20:39)
[2019-02-15] MEDS: Aspirin EC 81mg tab ORAL SCH (09:33)
[2019-02-15] MEDS: Vancomycin 750mg/D5W 275ml IVPB SCH ×4 (09:34→20:36)
--- NOTE | 2019-02-15 11:21 | NUR ---
NURSE NOTES: Patient still cannot take 0900 medications as still having throat spasms. Addendum: 02/15/19 at 1310 by Nelson Vidal RN CHARTED ON WRONG PATIENT PLEASE DISREGARD.
[2019-02-15 12:00] VITALS: BP 115/70
--- NOTE | 2019-02-15 12:30 | NUR ---
NURSE NOTES: Dr Yun made rounds, spoke to patient about starting a regular diet. Orders placed for regular diet with mechanical soft easy chew.
[2019-02-15] MEDS: Azithromycin 250mg tab ORAL SCH (13:00)
--- NOTE | 2019-02-15 13:09 | Pulmonology Progress Note ---
Assessment/Plan Problems: (1) Pneumonia (2) Sinus tachycardia (3) JOEL (acute kidney injury) (4) Altered level of consciousness (5) BPH (benign prostatic hyperplasia) Assessment/Plan respiratory treatment titrate fio2 to sat of 92% renal Us reviewed dc iv fluids, check sputum not done yet start feeding cxr in am cardiac evaluation for optimizing cardiac meds. Subjective ROS Limited/Unobtainable: No Interval Events: more awake, less dyspnic Allergies: Coded Allergies: No Known Allergies (Unverified , 02/12/19) Objective Last 24 Hour Vital Signs Date Time Temp Pulse Resp B/P (MAP) Pulse Ox O2 Delivery O2 Flow Rate FiO2 02/15/19 12:00 82 02/15/19 12:00 98.6 60 18 115/70 (85) 100 02/15/19 11:34 91 20 100 Nasal Cannula 2.0 28 85 20 97 02/15/19 09:33 87 114/48 02/15/19 09:00 Nasal Cannula 2.0 02/15/19 08:00 87 02/15/19 08:00 97.9 87 20 114/48 (70) 97 02/15/19 07:37 96 Nasal Cannula 2.0 28 02/15/19 07:37 89 20 99 Nasal Cannula 2.0 28 87 20 96 02/15/19 04:00 88 02/15/19 04:00 98.1 84 20 108/64 (79) 98 02/15/19 03:12 84 20 99 Nasal Cannula 2.0 28 82 20 98 02/15/19 00:00 87 02/15/19 00:00 98.2 89 20 106/56 (73) 95 02/14/19 23:28 92 20 100 Nasal Cannula 2.0 28 90 20 97 02/14/19 21:55 2.0 02/14/19 21:00 Nasal Cannula 2.0 02/14/19 20:44 96 20 98 Nasal Cannula 2.0 28 02/14/19 20:00 98 20 100 Nasal Cannula 2.0 28 96 20 98 02/14/19 20:00 98.9 80 18 118/72 (87) 95 02/14/19 20:00 98 Nasal Cannula 2.0 28 02/14/19 20:00 103 02/14/19 16:00 100.0 80 18 123/71 (88) 98 02/14/19 16:00 93 02/14/19 15:16 79 20 100 Nasal Cannula 2.0 28 78 20 97 Intake and Output 02/14/19 02/15/19 19:00 07:00 Intake Total 50 ml 450 ml Output Total 500 ml Balance 50 ml -50 ml IV Total 50 ml 450 ml Output Urine Total 500 ml Objective General Appearance: WD/WN, no apparent distress Lines, tubes and drains: peripheral HEENT: normocephalic, atraumatic Neck: non-tender, normal alignment Respiratory/Chest: chest wall non-tender, lungs clear Cardiovascular/Chest: normal peripheral pulses, regular rhythm Abdomen: normal bowel sounds, non tender Skin Exam: normal pigmentation Neurologic: all round butcher II-XII grossly normal Microbiology Date/Time Source Procedure Growth Status 02/12/19 18:45 Nasal Nares - Final Complete 02/12/19 18:45 Nasal Nares - Final Complete 02/12/19 13:40 Nasal Nares MRSA Culture - Final NO METHICILLIN RESISTANT STAPH AUREUS... Complete 02/12/19 14:10 Urine,Clean Catch Urine Culture - Final Gram Positive Cocci Complete 02/12/19 13:40 Rectal Mucosa VRE Culture - Final NO VANCOMYCIN RESISTANT ENTEROCOCCUS ... Complete Laboratory Tests 02/14/19 17:51: Urine Legionella Antigen [Pending] 02/15/19 06:13: White Blood Count 5.9, Red Blood Count 4.12L, Hemoglobin 12.1L, Hematocrit 37.2L , Mean Corpuscular Volume 90, Mean Corpuscular Hemoglobin 29.3, Mean Corpuscular Hemoglobin Concent 32.4, Red Cell Distribution Width 12.5, Platelet Count 123L, Mean Platelet Volume 7.9, Neutrophils (%) (Auto) 76.9H, Lymphocytes (%) (Auto) 12.6L, Monocytes (%) (Auto) 7.3, Eosinophils (%) (Auto) 2.5, Basophils (%) (Auto) 0.7, Erythrocyte Sedimentation Rate 64H, Sodium Level 139, Potassium Level 3.3L, Chloride Level 104, Carbon Dioxide Level 30, Anion Gap 5, Blood Urea Nitrogen 19H, Creatinine 1.4H, Estimat Glomerular Filtration Rate , Glucose Level 104, Calcium Level 8.2L, Phosphorus Level 2.8, Magnesium Level 2.0 , Total Bilirubin 1.3H, Direct Bilirubin 0.4H, Aspartate Amino Transf (AST/SGOT ) 76H, Alanine Aminotransferase (ALT/SGPT) 34, Alkaline Phosphatase 49, C- Reactive Protein, Quantitative 27.1H, Total Protein 7.3, Albumin 2.4L, Globulin 4.9, Albumin/Globulin Ratio 0.5L, Random Vancomycin Level 6.2 Current Medications Medications (Trade) Dose Ordered Sig/Nixon Route PRN Reason Start Time Stop Time Status Last Admin Dose Admin Acetaminophen (Tylenol) 650 mg Q4H PRN ORAL fever 02/12/19 13:15 03/14/19 13:14 02/14/19 20:27 Acetaminophen/ Hydrocodone Bitart ([place] 7.5/325) 1 tab Q6H PRN ORAL For Pain 02/12/19 13:15 02/19/19 13:14 Albuterol/ Ipratropium (Albuterol/ Ipratropium) 3 ml Q4HRT HHN 02/13/19 15:00 02/18/19 14:59 02/15/19 11:35 Amlodipine Besylate (Norvasc) 5 mg DAILY ORAL 02/13/19 09:00 03/15/19 08:59 02/15/19 09:33 Aspirin (Ecotrin) 81 mg DAILY ORAL 02/13/19 09:00 03/15/19 08:59 02/15/19 09:33 Atorvastatin Calcium (Lipitor) 80 mg BEDTIME ORAL 02/12/19 21:00 03/14/19 20:59 02/14/19 20:26 Azithromycin (Zithromax) 250 mg Q24H ORAL 02/15/19 13:00 02/19/19 13:59 Cefepime HCl 1 gm/ Dextrose 55 ml @ 110 mls/hr Q24H IV 02/12/19 18:00 02/19/19 17:59 02/14/19 17:24 Dextrose/ Electrolytes 1,000 ml @ 50 mls/hr Q20H IV 02/13/19 14:00 03/14/19 13:59 02/13/19 20:21 Heparin Sodium (Porcine) (Heparin 5000 units/ml) 5,000 units EVERY 12 HOURS SUBQ 02/12/19 21:00 03/14/19 20:59 02/14/19 09:07 Levetiracetam (Keppra) 1,000 mg Q12HR ORAL 02/12/19 21:00 03/14/19 20:59 02/15/19 09:34 Nitroglycerin (Ntg) 0.4 mg Q5M PRN SL Prn Chest Pain 02/12/19 13:15 03/14/19 13:14 Ondansetron HCl (Zofran) 4 mg Q6H PRN IVP Nausea & Vomiting 02/12/19 13:15 03/14/19 13:14 Polyethylene Glycol (Miralax) 17 gm DAILYPRN PRN ORAL Constipation 02/12/19 13:15 03/14/19 13:14 Promethazine HCl/ Codeine (Phenergan with Codeine) 5 ml Q4H PRN ORAL For Cough 02/12/19 13:15 03/14/19 13:14 Temazepam (Restoril) 15 mg HSPRN PRN ORAL Insomnia 02/12/19 13:15 02/19/19 13:14 02/13/19 22:36 Vancomycin HCl (Vanco rx to dose) 1 ea DAILY PRN MISC Per rx protocol 02/12/19 13:15 03/14/19 13:14 Vancomycin HCl 750 mg/Dextrose 275 ml @ 183.333 mls/hr Q12H IVPB 02/15/19 09:00 02/20/19 08:59 02/15/19 09:34 Cristian Yun MD Feb 15, 2019 13:09
--- NOTE | 2019-02-15 14:02 | Internal Med Progress Note ---
Subjective Date of Service: Feb 15, 2019 Physician Name Tony Lutz Attending Physician Robert Bergman MD Current Medications Medications (Trade) Dose Ordered Sig/Nixon Route PRN Reason Start Time Stop Time Status Last Admin Dose Admin Acetaminophen (Tylenol) 650 mg Q4H PRN ORAL fever 02/12/19 13:15 03/14/19 13:14 02/14/19 20:27 Acetaminophen/ Hydrocodone Bitart ([place] 7.5/325) 1 tab Q6H PRN ORAL For Pain 02/12/19 13:15 02/19/19 13:14 Albuterol/ Ipratropium (Albuterol/ Ipratropium) 3 ml Q4HRT HHN 02/13/19 15:00 02/18/19 14:59 02/15/19 11:35 Amlodipine Besylate (Norvasc) 5 mg DAILY ORAL 02/13/19 09:00 03/15/19 08:59 02/15/19 09:33 Aspirin (Ecotrin) 81 mg DAILY ORAL 02/13/19 09:00 03/15/19 08:59 02/15/19 09:33 Atorvastatin Calcium (Lipitor) 80 mg BEDTIME ORAL 02/12/19 21:00 03/14/19 20:59 02/14/19 20:26 Azithromycin (Zithromax) 250 mg Q24H ORAL 02/15/19 13:00 02/19/19 13:59 02/15/19 13:00 Cefepime HCl 1 gm/ Dextrose 55 ml @ 110 mls/hr Q24H IV 02/12/19 18:00 02/19/19 17:59 02/14/19 17:24 Heparin Sodium (Porcine) (Heparin 5000 units/ml) 5,000 units EVERY 12 HOURS SUBQ 02/12/19 21:00 03/14/19 20:59 02/14/19 09:07 Levetiracetam (Keppra) 1,000 mg Q12HR ORAL 02/12/19 21:00 03/14/19 20:59 02/15/19 09:34 Nitroglycerin (Ntg) 0.4 mg Q5M PRN SL Prn Chest Pain 02/12/19 13:15 03/14/19 13:14 Ondansetron HCl (Zofran) 4 mg Q6H PRN IVP Nausea & Vomiting 02/12/19 13:15 03/14/19 13:14 Polyethylene Glycol (Miralax) 17 gm DAILYPRN PRN ORAL Constipation 02/12/19 13:15 03/14/19 13:14 Promethazine HCl/ Codeine (Phenergan with Codeine) 5 ml Q4H PRN ORAL For Cough 02/12/19 13:15 03/14/19 13:14 Temazepam (Restoril) 15 mg HSPRN PRN ORAL Insomnia 02/12/19 13:15 02/19/19 13:14 02/13/19 22:36 Vancomycin HCl (Vanco rx to dose) 1 ea DAILY PRN MISC Per rx protocol 02/12/19 13:15 03/14/19 13:14 Vancomycin HCl 750 mg/Dextrose 275 ml @ 183.333 mls/hr Q12H IVPB 02/15/19 09:00 02/20/19 08:59 02/15/19 09:34 Allergies: Coded Allergies: No Known Allergies (Unverified , 02/12/19) ROS Limited/Unobtainable: Yes Subjective 84 YO M admitted with fever and cough. Now RUL pneumonia. Cover for Int Med- DR Bergman Objective Last Vital Signs Date Time Temp Pulse Resp B/P (MAP) Pulse Ox O2 Delivery O2 Flow Rate FiO2 02/15/19 12:00 82 02/15/19 12:00 98.6 18 115/70 (85) 100 02/15/19 11:34 Nasal Cannula 2.0 28 Laboratory Tests Test 02/14/19 17:51 02/15/19 06:13 Urine Legionella Antigen Pending White Blood Count 5.9 K/UL (4.8-10.8) Red Blood Count 4.12 M/UL (4.70-6.10) L Hemoglobin 12.1 G/DL (14.2-18.0) L Hematocrit 37.2 % (42.0-52.0) L Mean Corpuscular Volume 90 FL (80-99) Mean Corpuscular Hemoglobin 29.3 PG (27.0-31.0) Mean Corpuscular Hemoglobin Concent 32.4 G/DL (32.0-36.0) Red Cell Distribution Width 12.5 % (11.6-14.8) Platelet Count 123 K/UL (150-450) L Mean Platelet Volume 7.9 FL (6.5-10.1) Neutrophils (%) (Auto) 76.9 % (45.0-75.0) H Lymphocytes (%) (Auto) 12.6 % (20.0-45.0) L Monocytes (%) (Auto) 7.3 % (1.0-10.0) Eosinophils (%) (Auto) 2.5 % (0.0-3.0) Basophils (%) (Auto) 0.7 % (0.0-2.0) Erythrocyte Sedimentation Rate 64 MM/HR (0-20) H Sodium Level 139 MMOL/L (136-145) Potassium Level 3.3 MMOL/L (3.5-5.1) L Chloride Level 104 MMOL/L (98-107) Carbon Dioxide Level 30 MMOL/L (21-32) Anion Gap 5 mmol/L (5-15) Blood Urea Nitrogen 19 mg/dL (7-18) H Creatinine 1.4 MG/DL (0.55-1.30) H Estimat Glomerular Filtration Rate mL/min (>60) Glucose Level 104 MG/DL (74-106) Calcium Level 8.2 MG/DL (8.5-10.1) L Phosphorus Level 2.8 MG/DL (2.5-4.9) Magnesium Level 2.0 MG/DL (1.8-2.4) Total Bilirubin 1.3 MG/DL (0.2-1.0) H Direct Bilirubin 0.4 MG/DL (0.0-0.3) H Aspartate Amino Transf (AST/SGOT) 76 U/L (15-37) H Alanine Aminotransferase (ALT/SGPT) 34 U/L (12-78) Alkaline Phosphatase 49 U/L (46-116) C-Reactive Protein, Quantitative 27.1 mg/dL (0.00-0.90) H Total Protein 7.3 G/DL (6.4-8.2) Albumin 2.4 G/DL (3.4-5.0) L Globulin 4.9 g/dL Albumin/Globulin Ratio 0.5 (1.0-2.7) L Random Vancomycin Level 6.2 ug/mL Microbiology Date/Time Source Procedure Growth Status 02/12/19 18:45 Nasal Nares - Final Complete 02/12/19 18:45 Nasal Nares - Final Complete 02/12/19 14:10 Urine,Clean Catch Urine Culture - Final Gram Positive Cocci Complete Intake and Output 02/14/19 02/15/19 19:00 07:00 Intake Total 50 ml 450 ml Output Total 500 ml Balance 50 ml -50 ml IV Total 50 ml 450 ml Output Urine Total 500 ml Objective Objective GENERAL: The patient is cachectic, malnutrition and more responsive HEAD AND NECK: Pupils are reactive to light. Anicteric. NECK: Supple. No JVD. LUNGS: Good air entry. + expiratory wheezing, + basal crackles. ABDOMEN: Soft, nondistended, and nontender. Positive bowel sounds. EXTREMITIES: No cyanosis, clubbing, or edema. NEUROLOGIC: Very limited secondary to the patient's status. However, the patient is moving extremities spontaneously. Gait was not assessed due to the patient's status. Assessment/Plan Assessment/Plan Assessment/Plan Assessment/Plan ASSESSMENT: 1. Altered mental status 2. Acute kidney injury and chronic renal insufficiency. 3. Dehydration and hypovolemia. 4. Pneumonia. 5. Hypertension. 6. Dyslipidemia. 7. Chronic obstructive pulmonary disease. 8. RUL pneumonia PLAN: 1. Admit the patient to monitored unit. 2. We will follow up with Dr. Yun, Pulmonary Critical Care and Dr. Romero Sunshine from Nephrology. 3. On IV hydration. 4. Monitor labs and cultures. 5. DVT prophylaxis with heparin subcutaneous. 6. Follow up with the nebulizer treatment as needed. 7. antibiotic= cefepime, Zithromax, and vancomycin per ID=Dr Banda 8. We will follow up with the viral study. 9. Code status: Full Code. Tony Lutz MD Feb 15, 2019 14:02
[2019-02-15 16:00] VITALS: BP 130/72
[2019-02-15] MEDS: Cefepime HCl 1 GM in D5W 55 ML IV SCH (17:52)
--- NOTE | 2019-02-15 19:46 | NUR ---
NURSE NOTES: Received pt from JAKY Damon. Pt awake, alert, and talkative. Bed in lowest position. Call light within reach. Will continue to monitor.
[2019-02-15 20:00] VITALS: BP 134/74
[2019-02-15] MEDS: Atorvastatin 80mg tab ORAL SCH (20:38)
[2019-02-16] VITALS: BP 129/71
[2019-02-16] MEDS: Albuterol/Ipratropium 3ml neb HHN SCH ×6 (03:34→23:00)
[2019-02-16 04:00] VITALS: BP 128/67
--- NOTE | 2019-02-16 07:27 | NUR ---
HAND-OFF: Report given to JAKY Peng. Pt stable.
--- NOTE | 2019-02-16 07:45 | NUR ---
NURSE NOTES: Received pt. in bed awake, alert, orientedx2. no signs or symptoms fo acute cardiac or respiratory distress noted, bed alarm on, side rails up x3 and safety brakes engaged, no distress noted. call light within easy reach, IV access intact and patent, side rails padded for seizure precautions- no seizure activity noted, safety measures continued, will continue with plan of care.
[2019-02-16 07:47] LABS: BASOPHILS % (AUTO) 0.8 % (0.0-2.0); EOSINOPHILS % (AUTO) 2.5 % (0.0-3.0); HEMATOCRIT 37.3 % (42.0-52.0); LYMPHOCYTES % (AUTO) 12.9 % (20.0-45.0); MEAN CORPUSCULAR VOLUME 91 FL (80-99); MONOCYTES % (AUTO) 9.2 % (1.0-10.0); NEUTROPHILS % (AUTO) 74.5 % (45.0-75.0); PLATELET COUNT 136 K/UL (150-450); RED CELL DISTRIBUTION WIDTH 12.4 % (11.6-14.8); WHITE BLOOD COUNT 6.7 K/UL (4.8-10.8)
[2019-02-16 08:00] VITALS: BP 122/75
[2019-02-16 08:04] LABS: ALANINE AMINOTRANSFERASE 31 U/L (12-78); ALBUMIN 2.2 G/DL (3.4-5.0); ALBUMIN/GLOBULIN RATIO 0.5 (1.0-2.7); ALKALINE PHOSPHATASE 48 U/L (46-116); ANION GAP 6 mmol/L (5-15); ASPARTATE AMINO TRANSFERASE 63 U/L (15-37); BILIRUBIN,TOTAL 1.1 MG/DL (0.2-1.0); CARBON DIOXIDE 31 MMOL/L (21-32); CHLORIDE 104 MMOL/L (98-107); CREATININE 1.3 MG/DL (0.55-1.30); POTASSIUM 3.8 MMOL/L (3.5-5.1); SODIUM 141 MMOL/L (136-145)
[2019-02-16 08:08] LABS: BILIRUBIN,DIRECT 0.3 MG/DL (0.0-0.3)
[2019-02-16 08:20] LABS: BLOOD UREA NITROGEN 16 mg/dL (7-18)
[2019-02-16] MEDS: Vancomycin 750mg/D5W 275ml IVPB SCH ×2 (09:00)
[2019-02-16] MEDS: Aspirin EC 81mg tab ORAL SCH (09:08)
[2019-02-16] MEDS: Heparin 5000 units/ml inj SUBQ SCH ×2 (09:12→21:30)
--- NOTE | 2019-02-16 10:35 | NUR ---
*-* INSURANCE *-* ALL AVAILABLE CLINICALS HAVE BEEN FAXED TO: Ref# [id number] CM: Ellen #[phone] fax# [phone]
--- NOTE | 2019-02-16 10:56 | NUR ---
RADIOLOGY DEPT., CHEST X-RAY DONE.-P.DYE
--- NOTE | 2019-02-16 11:10 | NUR ---
CASE MANAGEMENT:REVIEW 01/3019 SI;RT UPPER LUNG PNA. 98.6 104 22 106/56 95% 2L NC RBC 3.85 PLT 116 BUN 27 AST 88 IS;ZITHROMAX PO Q24 VANCO IV CEFEPIME IV DUONEB HHN TELE STATUS DCP;[facility]
[2019-02-16 12:06] VITALS: BP 125/68
--- NOTE | 2019-02-16 12:25 | Pulmonology Progress Note ---
Assessment/Plan Problems: (1) Pneumonia (2) Sinus tachycardia (3) JOEL (acute kidney injury) (4) Altered level of consciousness (5) BPH (benign prostatic hyperplasia) Assessment/Plan respiratory treatment titrate fio2 to sat of 92% renal Us reviewed dc iv fluids, check sputum not done yet start feeding cxr in am cardiac evaluation for optimizing cardiac meds. Subjective ROS Limited/Unobtainable: No Constitutional: Reports: no symptoms HEENT: Repors: no symptoms Allergies: Coded Allergies: No Known Allergies (Unverified , 02/12/19) Objective Last 24 Hour Vital Signs Date Time Temp Pulse Resp B/P (MAP) Pulse Ox O2 Delivery O2 Flow Rate FiO2 02/16/19 12:06 98.4 85 18 125/68 (87) 100 02/16/19 10:44 84 20 99 Nasal Cannula 2.0 28 87 18 98 02/16/19 09:08 81 122/75 02/16/19 08:44 Nasal Cannula 2.0 02/16/19 08:00 98.4 81 18 122/75 (91) 100 02/16/19 07:37 96 Nasal Cannula 2.0 28 02/16/19 07:37 86 20 99 Nasal Cannula 2.0 28 82 20 96 02/16/19 04:00 91 02/16/19 04:00 98.2 92 20 128/67 (87) 95 02/16/19 03:44 88 20 99 Nasal Cannula 2.0 28 02/16/19 03:34 88 20 97 Nasal Cannula 2.0 28 02/16/19 00:00 92 02/16/19 00:00 98.1 94 20 129/71 (90) 94 02/15/19 23:47 94 20 98 Nasal Cannula 2.0 28 02/15/19 23:37 94 20 94 Nasal Cannula 2.0 28 02/15/19 21:55 2.0 02/15/19 21:00 Nasal Cannula 2.0 02/15/19 20:09 89 20 99 Nasal Cannula 2.0 28 02/15/19 20:00 95 02/15/19 20:00 98.2 91 19 134/74 (94) 99 02/15/19 19:59 88 20 97 Nasal Cannula 2.0 28 02/15/19 19:59 97 Nasal Cannula 2.0 28 12/29/19 16:00 92 02/15/19 16:00 98.6 81 20 130/72 (91) 100 02/15/19 16:00 82 02/15/19 15:59 87 20 99 Nasal Cannula 2.0 28 89 20 96 Intake and Output 02/15/19 02/16/19 19:00 07:00 Output Total 1100 ml 600 ml Balance -1100 ml -600 ml Output Urine Total 1100 ml 600 ml # Voids 3 Objective General Appearance: WD/WN, no apparent distress Lines, tubes and drains: peripheral HEENT: normocephalic, atraumatic Neck: non-tender, normal alignment Respiratory/Chest: chest wall non-tender, lungs clear Cardiovascular/Chest: normal peripheral pulses, regular rhythm Abdomen: normal bowel sounds, non tender Skin Exam: normal pigmentation Neurologic: arabic professor II-XII grossly normal HEENT: normocephalic, atraumatic, anicteric Respiratory/Chest: chest wall non-tender, lungs clear Cardiovascular: normal peripheral pulses, normal rate Abdomen: normal bowel sounds, soft, non tender Genitourinary: normal external genitalia Neurologic/Psychiatric: arabic professor II-XII grossly normal Laboratory Tests 02/16/19 07:00: White Blood Count 6.7, Red Blood Count 4.10L, Hemoglobin 12.0L, Hematocrit 37.3L , Mean Corpuscular Volume 91, Mean Corpuscular Hemoglobin 29.4, Mean Corpuscular Hemoglobin Concent 32.3, Red Cell Distribution Width 12.4, Platelet Count 136L, Mean Platelet Volume 7.9, Neutrophils (%) (Auto) 74.5, Lymphocytes ( %) (Auto) 12.9L, Monocytes (%) (Auto) 9.2, Eosinophils (%) (Auto) 2.5, Basophils (%) (Auto) 0.8, Sodium Level 141, Potassium Level 3.8, Chloride Level 104, Carbon Dioxide Level 31, Anion Gap 6, Blood Urea Nitrogen 16, Creatinine 1.3, Estimat Glomerular Filtration Rate , Glucose Level 111H, Calcium Level 8.0L , Total Bilirubin 1.1H, Direct Bilirubin 0.3, Aspartate Amino Transf (AST/SGOT) 63H, Alanine Aminotransferase (ALT/SGPT) 31, Alkaline Phosphatase 48, Pro-B- Type Natriuretic Peptide 458H, Total Protein 6.9, Albumin 2.2L, Globulin 4.7, Albumin/Globulin Ratio 0.5L Current Medications Medications (Trade) Dose Ordered Sig/Nixon Route PRN Reason Start Time Stop Time Status Last Admin Dose Admin Acetaminophen (Tylenol) 650 mg Q4H PRN ORAL fever 02/12/19 13:15 03/14/19 13:14 02/14/19 20:27 Acetaminophen/ Hydrocodone Bitart ([place] 7.5/325) 1 tab Q6H PRN ORAL For Pain 02/12/19 13:15 02/19/19 13:14 Albuterol/ Ipratropium (Albuterol/ Ipratropium) 3 ml Q4HRT HHN 02/13/19 15:00 02/18/19 14:59 02/16/19 10:44 Amlodipine Besylate (Norvasc) 5 mg DAILY ORAL 02/13/19 09:00 03/15/19 08:59 02/16/19 09:08 Aspirin (Ecotrin) 81 mg DAILY ORAL 02/13/19 09:00 03/15/19 08:59 02/16/19 09:08 Atorvastatin Calcium (Lipitor) 80 mg BEDTIME ORAL 02/12/19 21:00 03/14/19 20:59 02/15/19 20:38 Azithromycin (Zithromax) 250 mg Q24H ORAL 02/15/19 13:00 02/19/19 13:59 02/15/19 13:00 Cefepime HCl 1 gm/ Dextrose 55 ml @ 110 mls/hr Q24H IV 02/12/19 18:00 02/19/19 17:59 02/15/19 17:52 Heparin Sodium (Porcine) (Heparin 5000 units/ml) 5,000 units EVERY 12 HOURS SUBQ 02/12/19 21:00 03/14/19 20:59 02/16/19 09:12 Levetiracetam (Keppra) 1,000 mg Q12HR ORAL 02/12/19 21:00 03/14/19 20:59 02/16/19 09:08 Nitroglycerin (Ntg) 0.4 mg Q5M PRN SL Prn Chest Pain 02/12/19 13:15 03/14/19 13:14 Ondansetron HCl (Zofran) 4 mg Q6H PRN IVP Nausea & Vomiting 02/12/19 13:15 03/14/19 13:14 Polyethylene Glycol (Miralax) 17 gm DAILYPRN PRN ORAL Constipation 02/12/19 13:15 03/14/19 13:14 Promethazine HCl/ Codeine (Phenergan with Codeine) 5 ml Q4H PRN ORAL For Cough 02/12/19 13:15 03/14/19 13:14 Temazepam (Restoril) 15 mg HSPRN PRN ORAL Insomnia 02/12/19 13:15 02/19/19 13:14 02/13/19 22:36 Vancomycin HCl (Vanco rx to dose) 1 ea DAILY PRN MISC Per rx protocol 02/12/19 13:15 03/14/19 13:14 Vancomycin HCl 750 mg/Dextrose 275 ml @ 183.333 mls/hr Q12H IVPB 02/15/19 09:00 02/20/19 08:59 02/16/19 09:00 Cristian Yun MD Feb 16, 2019 12:25
--- NOTE | 2019-02-16 12:34 | Infectious Diseases Prog Note ---
Assessment/Plan Assessment/Plan Assessment/Plan: 84 yo male with PMHx of COPD, HLD, and HTN who was sent to the ED on 02/12/19 with AMS. CAP CXR RUL infltrate Inf Screen (-) Low grade fever; improving No leukocytosis UTI UA (+) Urine Cx 02/12/19 - <10k GPC AMS JOEL COPD HLD HTN PLAN: - Start Ceftriaxone #1/3 - Continue Azithromycin #5/7 02/16/19 SP Cefepime #5 and vancomycin #5 - Monitor CBC and Temps -legionella ag urine Thank you for this consult. [facility] will continue to follow the patient with you during this hospitalization. Subjective Allergies: Coded Allergies: No Known Allergies (Unverified , 02/12/19) Subjective Afebrile No Leukocytosis Objective Vital Signs Last 24 Hour Vital Signs Date Time Temp Pulse Resp B/P (MAP) Pulse Ox O2 Delivery O2 Flow Rate FiO2 02/16/19 12:06 98.4 85 18 125/68 (87) 100 02/16/19 10:44 84 20 99 Nasal Cannula 2.0 28 87 18 98 02/16/19 09:08 81 122/75 02/16/19 08:44 Nasal Cannula 2.0 02/16/19 08:00 98.4 81 18 122/75 (91) 100 02/16/19 07:37 96 Nasal Cannula 2.0 28 02/16/19 07:37 86 20 99 Nasal Cannula 2.0 28 82 20 96 02/16/19 04:00 91 02/16/19 04:00 98.2 92 20 128/67 (87) 95 02/16/19 03:44 88 20 99 Nasal Cannula 2.0 28 02/16/19 03:34 88 20 97 Nasal Cannula 2.0 28 02/16/19 00:00 92 02/16/19 00:00 98.1 94 20 129/71 (90) 94 02/15/19 23:47 94 20 98 Nasal Cannula 2.0 28 02/15/19 23:37 94 20 94 Nasal Cannula 2.0 28 02/15/19 21:55 2.0 02/15/19 21:00 Nasal Cannula 2.0 02/15/19 20:09 89 20 99 Nasal Cannula 2.0 28 02/15/19 20:00 95 02/15/19 20:00 98.2 91 19 134/74 (94) 99 02/15/19 19:59 88 20 97 Nasal Cannula 2.0 28 02/15/19 19:59 97 Nasal Cannula 2.0 28 02/15/19 16:00 92 02/15/19 16:00 98.6 81 20 130/72 (91) 100 02/15/19 16:00 82 02/15/19 15:59 87 20 99 Nasal Cannula 2.0 28 89 20 96 Height (Feet): 5 Height (Inches): 10.00 Weight (Pounds): 151 Objective Gen: NAD HEENT: NCAT, MMM, EOMI LUNGS: Coarse B/L CARDS: RRR, S1, S2 ABD: Soft, NT, ND Laboratory Tests Test 02/16/19 07:00 White Blood Count 6.7 K/UL (4.8-10.8) Red Blood Count 4.10 M/UL (4.70-6.10) L Hemoglobin 12.0 G/DL (14.2-18.0) L Hematocrit 37.3 % (42.0-52.0) L Mean Corpuscular Volume 91 FL (80-99) Mean Corpuscular Hemoglobin 29.4 PG (27.0-31.0) Mean Corpuscular Hemoglobin Concent 32.3 G/DL (32.0-36.0) Red Cell Distribution Width 12.4 % (11.6-14.8) Platelet Count 136 K/UL (150-450) L Mean Platelet Volume 7.9 FL (6.5-10.1) Neutrophils (%) (Auto) 74.5 % (45.0-75.0) Lymphocytes (%) (Auto) 12.9 % (20.0-45.0) L Monocytes (%) (Auto) 9.2 % (1.0-10.0) Eosinophils (%) (Auto) 2.5 % (0.0-3.0) Basophils (%) (Auto) 0.8 % (0.0-2.0) Sodium Level 141 MMOL/L (136-145) Potassium Level 3.8 MMOL/L (3.5-5.1) Chloride Level 104 MMOL/L (98-107) Carbon Dioxide Level 31 MMOL/L (21-32) Anion Gap 6 mmol/L (5-15) Blood Urea Nitrogen 16 mg/dL (7-18) Creatinine 1.3 MG/DL (0.55-1.30) Estimat Glomerular Filtration Rate mL/min (>60) Glucose Level 111 MG/DL (74-106) H Calcium Level 8.0 MG/DL (8.5-10.1) L Total Bilirubin 1.1 MG/DL (0.2-1.0) H Direct Bilirubin 0.3 MG/DL (0.0-0.3) Aspartate Amino Transf (AST/SGOT) 63 U/L (15-37) H Alanine Aminotransferase (ALT/SGPT) 31 U/L (12-78) Alkaline Phosphatase 48 U/L (46-116) Pro-B-Type Natriuretic Peptide 458 pg/mL (0-125) H Total Protein 6.9 G/DL (6.4-8.2) Albumin 2.2 G/DL (3.4-5.0) L Globulin 4.7 g/dL Albumin/Globulin Ratio 0.5 (1.0-2.7) L Current Medications Medications (Trade) Dose Ordered Sig/Nixon Route PRN Reason Start Time Stop Time Status Last Admin Dose Admin Acetaminophen (Tylenol) 650 mg Q4H PRN ORAL fever 02/12/19 13:15 03/14/19 13:14 02/14/19 20:27 Acetaminophen/ Hydrocodone Bitart ([place] 7.5/325) 1 tab Q6H PRN ORAL For Pain 02/12/19 13:15 02/19/19 13:14 Albuterol/ Ipratropium (Albuterol/ Ipratropium) 3 ml Q4HRT HHN 02/13/19 15:00 02/18/19 14:59 02/16/19 10:44 Amlodipine Besylate (Norvasc) 5 mg DAILY ORAL 02/13/19 09:00 03/15/19 08:59 02/16/19 09:08 Aspirin (Ecotrin) 81 mg DAILY ORAL 02/13/19 09:00 03/15/19 08:59 02/16/19 09:08 Atorvastatin Calcium (Lipitor) 80 mg BEDTIME ORAL 02/12/19 21:00 03/14/19 20:59 02/15/19 20:38 Azithromycin (Zithromax) 250 mg Q24H ORAL 02/15/19 13:00 02/19/19 13:59 02/15/19 13:00 Barium Sulfate (Readi-Cat 2) 450 ml NOW PRN ORAL Radiology Procedure 02/16/19 12:30 02/18/19 12:19 Cefepime HCl 1 gm/ Dextrose 55 ml @ 110 mls/hr Q24H IV 02/12/19 18:00 02/19/19 17:59 02/15/19 17:52 Heparin Sodium (Porcine) (Heparin 5000 units/ml) 5,000 units EVERY 12 HOURS SUBQ 02/12/19 21:00 03/14/19 20:59 02/16/19 09:12 Levetiracetam (Keppra) 1,000 mg Q12HR ORAL 02/12/19 21:00 03/14/19 20:59 02/16/19 09:08 Nitroglycerin (Ntg) 0.4 mg Q5M PRN SL Prn Chest Pain 02/12/19 13:15 03/14/19 13:14 Ondansetron HCl (Zofran) 4 mg Q6H PRN IVP Nausea & Vomiting 02/12/19 13:15 03/14/19 13:14 Polyethylene Glycol (Miralax) 17 gm DAILYPRN PRN ORAL Constipation 02/12/19 13:15 03/14/19 13:14 Promethazine HCl/ Codeine (Phenergan with Codeine) 5 ml Q4H PRN ORAL For Cough 02/12/19 13:15 03/14/19 13:14 Temazepam (Restoril) 15 mg HSPRN PRN ORAL Insomnia 02/12/19 13:15 02/19/19 13:14 02/13/19 22:36 Vancomycin HCl (Vanco rx to dose) 1 ea DAILY PRN MISC Per rx protocol 02/12/19 13:15 03/14/19 13:14 Vancomycin HCl 750 mg/Dextrose 275 ml @ 183.333 mls/hr Q12H IVPB 02/15/19 09:00 02/20/19 08:59 02/16/19 09:00 Martinez Banda MD Feb 16, 2019 12:34
--- NOTE | 2019-02-16 12:54 | NUR ---
NURSE NOTES: patient does not have next of kin indicated to sign consent for CT with contrast. However, Dr Yun signed on behalf of the patient. will keep patient NPO as of now and cont plan of care.
--- NOTE | 2019-02-16 12:58 | Internal Med Progress Note ---
Subjective Date of Service: Feb 16, 2019 Physician Name Tony Lutz Attending Physician Robert Bergman MD Current Medications Medications (Trade) Dose Ordered Sig/Nixon Route PRN Reason Start Time Stop Time Status Last Admin Dose Admin Acetaminophen (Tylenol) 650 mg Q4H PRN ORAL fever 02/12/19 13:15 03/14/19 13:14 02/14/19 20:27 Acetaminophen/ Hydrocodone Bitart ([place] 7.5/325) 1 tab Q6H PRN ORAL For Pain 02/12/19 13:15 02/19/19 13:14 Albuterol/ Ipratropium (Albuterol/ Ipratropium) 3 ml Q4HRT HHN 02/13/19 15:00 02/18/19 14:59 02/16/19 10:44 Amlodipine Besylate (Norvasc) 5 mg DAILY ORAL 02/13/19 09:00 03/15/19 08:59 02/16/19 09:08 Aspirin (Ecotrin) 81 mg DAILY ORAL 02/13/19 09:00 03/15/19 08:59 02/16/19 09:08 Atorvastatin Calcium (Lipitor) 80 mg BEDTIME ORAL 02/12/19 21:00 03/14/19 20:59 02/15/19 20:38 Azithromycin (Zithromax) 250 mg Q24H ORAL 02/15/19 13:00 02/19/19 13:59 02/15/19 13:00 Barium Sulfate (Readi-Cat 2) 450 ml NOW PRN ORAL Radiology Procedure 02/16/19 12:30 02/18/19 12:19 Ceftriaxone Sodium 1 gm/ Dextrose 55 ml @ 110 mls/hr Q24H IVPB 02/16/19 14:00 02/23/19 13:59 Heparin Sodium (Porcine) (Heparin 5000 units/ml) 5,000 units EVERY 12 HOURS SUBQ 02/12/19 21:00 03/14/19 20:59 02/16/19 09:12 Levetiracetam (Keppra) 1,000 mg Q12HR ORAL 02/12/19 21:00 03/14/19 20:59 02/16/19 09:08 Nitroglycerin (Ntg) 0.4 mg Q5M PRN SL Prn Chest Pain 02/12/19 13:15 03/14/19 13:14 Ondansetron HCl (Zofran) 4 mg Q6H PRN IVP Nausea & Vomiting 02/12/19 13:15 03/14/19 13:14 Polyethylene Glycol (Miralax) 17 gm DAILYPRN PRN ORAL Constipation 02/12/19 13:15 03/14/19 13:14 Promethazine HCl/ Codeine (Phenergan with Codeine) 5 ml Q4H PRN ORAL For Cough 02/12/19 13:15 03/14/19 13:14 Temazepam (Restoril) 15 mg HSPRN PRN ORAL Insomnia 02/12/19 13:15 02/19/19 13:14 02/13/19 22:36 Allergies: Coded Allergies: No Known Allergies (Unverified , 02/12/19) ROS Limited/Unobtainable: Yes Subjective 84 YO M admitted with fever and cough. Now RUL pneumonia. Cover for Int Med- DR Bergman Objective Last Vital Signs Date Time Temp Pulse Resp B/P (MAP) Pulse Ox O2 Delivery O2 Flow Rate FiO2 02/16/19 12:06 98.4 85 18 125/68 (87) 100 02/16/19 10:44 Nasal Cannula 2.0 28 Laboratory Tests Test 02/16/19 07:00 White Blood Count 6.7 K/UL (4.8-10.8) Red Blood Count 4.10 M/UL (4.70-6.10) L Hemoglobin 12.0 G/DL (14.2-18.0) L Hematocrit 37.3 % (42.0-52.0) L Mean Corpuscular Volume 91 FL (80-99) Mean Corpuscular Hemoglobin 29.4 PG (27.0-31.0) Mean Corpuscular Hemoglobin Concent 32.3 G/DL (32.0-36.0) Red Cell Distribution Width 12.4 % (11.6-14.8) Platelet Count 136 K/UL (150-450) L Mean Platelet Volume 7.9 FL (6.5-10.1) Neutrophils (%) (Auto) 74.5 % (45.0-75.0) Lymphocytes (%) (Auto) 12.9 % (20.0-45.0) L Monocytes (%) (Auto) 9.2 % (1.0-10.0) Eosinophils (%) (Auto) 2.5 % (0.0-3.0) Basophils (%) (Auto) 0.8 % (0.0-2.0) Sodium Level 141 MMOL/L (136-145) Potassium Level 3.8 MMOL/L (3.5-5.1) Chloride Level 104 MMOL/L (98-107) Carbon Dioxide Level 31 MMOL/L (21-32) Anion Gap 6 mmol/L (5-15) Blood Urea Nitrogen 16 mg/dL (7-18) Creatinine 1.3 MG/DL (0.55-1.30) Estimat Glomerular Filtration Rate mL/min (>60) Glucose Level 111 MG/DL (74-106) H Calcium Level 8.0 MG/DL (8.5-10.1) L Total Bilirubin 1.1 MG/DL (0.2-1.0) H Direct Bilirubin 0.3 MG/DL (0.0-0.3) Aspartate Amino Transf (AST/SGOT) 63 U/L (15-37) H Alanine Aminotransferase (ALT/SGPT) 31 U/L (12-78) Alkaline Phosphatase 48 U/L (46-116) Pro-B-Type Natriuretic Peptide 458 pg/mL (0-125) H Total Protein 6.9 G/DL (6.4-8.2) Albumin 2.2 G/DL (3.4-5.0) L Globulin 4.7 g/dL Albumin/Globulin Ratio 0.5 (1.0-2.7) L Intake and Output 02/15/19 02/16/19 19:00 07:00 Output Total 1100 ml 600 ml Balance -1100 ml -600 ml Output Urine Total 1100 ml 600 ml # Voids 3 Objective Objective GENERAL: The patient is cachectic, malnutrition and more responsive HEAD AND NECK: Pupils are reactive to light. Anicteric. NECK: Supple. No JVD. LUNGS: Good air entry. + expiratory wheezing, + basal crackles. ABDOMEN: Soft, nondistended, and nontender. Positive bowel sounds. EXTREMITIES: No cyanosis, clubbing, or edema. NEUROLOGIC: Very limited secondary to the patient's status. However, the patient is moving extremities spontaneously. Gait was not assessed due to the patient's status. Assessment/Plan Assessment/Plan Assessment/Plan Assessment/Plan ASSESSMENT: 1. Altered mental status 2. Acute kidney injury and chronic renal insufficiency. 3. Dehydration and hypovolemia. 4. Pneumonia. 5. Hypertension. 6. Dyslipidemia. 7. Chronic obstructive pulmonary disease. 8. RUL pneumonia PLAN: 1. Admit the patient to monitored unit. 2. We will follow up with Dr. Yun, Pulmonary Critical Care and Dr. Romero Sunshine from Nephrology. 3. On IV hydration. 4. Monitor labs and cultures. 5. DVT prophylaxis with heparin subcutaneous. 6. Follow up with the nebulizer treatment as needed. 7. antibiotic= cefepime, Zithromax, and vancomycin per ID=Dr Banda 8. We will follow up with the viral study. 9. Code status: Full Code. Tony Lutz MD Feb 16, 2019 12:58
--- NOTE | 2019-02-16 13:02 | Diagnostic Imaging Report ---
. Indication: Shortness of breath Technique: One view of the chest Comparison: 02/14/2019 Findings: Bilateral interstitial and airspace opacities, left pleural effusion are unchanged on the left, slightly increased on the right. The heart remains borderline enlarged. Impression: Slightly increasing airspace opacities on the right, over 2 days. Otherwise stable findings as described.
[2019-02-16] MEDS: cefTRIAXone 1 GM in D5W 55 ML IVPB SCH (14:00)
[2019-02-16] MEDS: Azithromycin 250mg tab ORAL SCH (14:09)
[2019-02-16] MEDS ORDERED: Omnipaque-300 100ml vial INJ PRN (14:15)
--- NOTE | 2019-02-16 15:24 | NUR ---
SPEECH PATHOLOGY: PATIENT SEEN FOR DYSPHAGIA TX SESSION CLEARED BY JAKY HICKS. PATIENT ALERT, ORIENTED TO SPEAKER, PLACE, SITUATION. PER STAFF HE IS TOLERATING HIS CURRENT [facility] SOFT/CHOPPED DIET WITH NO OVERT S/S OF ASPIRATION. WITH P.O. TRIALS OF THIN LIQUID VIA STRAW, PATIENT DEMONSTRATED ESSENTIALLY INTACT ORAL PHASE OF SWALLOW. RECOMMEND CONTINUE CURRENT DIET WITH SET UP ASSIST. DISCUSSED FINDINGS WITH RN.
[2019-02-16 15:53] VITALS: BP 111/58
--- NOTE | 2019-02-16 19:11 | NUR ---
HAND-OFF: Report given to michael.
--- NOTE | 2019-02-16 19:25 | NUR ---
NURSE NOTES: Received report from LAUREN Peng. Pt is awake, lying semi-pitts's; comfortably resting. No signs of acute distress noted. Pt denies any pain at this time. AOx2; able to make needs known. Checked IV sites; patent and flushed. No erythema, bleeding, or infiltration noted. Siderails padded. Bed at lowest position. Brakes on. Siderails up x3. Call light within reach. Will continue to monitor.
[2019-02-16 20:00] VITALS: BP 129/75
[2019-02-16] MEDS: Atorvastatin 80mg tab ORAL SCH (21:20)
[2019-02-17] VITALS: BP 125/73
[2019-02-17] MEDS: Albuterol/Ipratropium 3ml neb HHN SCH ×6 (03:26→23:00)
[2019-02-17 04:00] VITALS: BP 109/59
[2019-02-17 07:23] LABS: BASOPHILS % (AUTO) 2.1 % (0.0-2.0); EOSINOPHILS % (AUTO) 3.3 % (0.0-3.0); HEMATOCRIT 34.8 % (42.0-52.0); HEMOGLOBIN 11.5 G/DL (14.2-18.0); MEAN CORPUSCULAR VOLUME 89 FL (80-99); MONOCYTES % (AUTO) 9.5 % (1.0-10.0); NEUTROPHILS % (AUTO) 65.1 % (45.0-75.0); PLATELET COUNT 163 K/UL (150-450); RED BLOOD COUNT 3.91 M/UL (4.70-6.10); RED CELL DISTRIBUTION WIDTH 12.8 % (11.6-14.8); WHITE BLOOD COUNT 6.2 K/UL (4.8-10.8)
--- NOTE | 2019-02-17 07:30 | NUR ---
NURSE NOTES: Received pt from MY/AN RN. Pt is awake and alert. pt has NC 2LMP. Pt has intact iv access LFA and LH 20G SL. all needs attended, bed is locked and is in the lowest position, call light within easy reach. will continue to monitor.
--- NOTE | 2019-02-17 07:37 | NUR ---
HAND-OFF: Report given to JAKY Martinez. Pt is awake and in stable condition. Plan of care endorsed.
[2019-02-17 07:52] LABS: ALANINE AMINOTRANSFERASE 39 U/L (12-78); ALBUMIN 2.2 G/DL (3.4-5.0); ALBUMIN/GLOBULIN RATIO 0.5 (1.0-2.7); ALKALINE PHOSPHATASE 54 U/L (46-116); ANION GAP 5 mmol/L (5-15); ASPARTATE AMINO TRANSFERASE 54 U/L (15-37); BILIRUBIN,TOTAL 0.8 MG/DL (0.2-1.0); BLOOD UREA NITROGEN 16 mg/dL (7-18); CALCIUM 8.6 MG/DL (8.5-10.1); CARBON DIOXIDE 30 MMOL/L (21-32); CHLORIDE 99 MMOL/L (98-107); CREATININE 1.3 MG/DL (0.55-1.30); PHOSPHORUS 2.9 MG/DL (2.5-4.9); POTASSIUM 3.6 MMOL/L (3.5-5.1); SODIUM 134 MMOL/L (136-145)
[2019-02-17 08:00] VITALS: BP 130/60
--- NOTE | 2019-02-17 08:53 | Diagnostic Imaging Report ---
CLINICAL INDICATION:Chest pain, abdominal pain, shortness of breath, wheezing, fever, pneumonia TECHNIQUE: Patient ingested oral contrast. IV administration nonionic contrast. Spiral acquisitions obtained through the chest, abdomen, and pelvis. Multiplanar reconstructions were generated. Total dose length product 2040 mGycm. CTDIvol(s) 41, 83, 19, 19 mGy. Radiation dose was minimized using automated exposure control COMPARISON: none FINDINGS Chest: Areas of dense consolidation are seen in the right upper lobe and right middle lobe. There is a small right pleural effusion. This results in compressive atelectasis of portions of the right lower lobe nodular opacities are seen in the anterior left upper lobe. Compressive atelectatic changes are seen in the left lower lobe. There is trace left pleural fluid. The heart is enlarged. No pericardial effusion demonstrated. There is marked distal esophageal wall thickening. There is questionably some minimal ulceration of the distal esophagus. There are mildly enlarged right hilar lymph nodes. Some eileen calcifications are seen within the subcarinal nodes. Included thyroid is unremarkable. No axillary or chest wall mass or adenopathy. The bones demonstrate degenerative spondylosis changes. Abdomen pelvis: The cecum is mildly distended, demonstrates equivocal wall thickening versus mural fecal debris. The appendix is not definitely identified. No findings to suggest acute appendicitis. Mild to moderate retained stool is seen in the transverse colon. No evidence of diverticulosis or diverticulitis. There is mild distention of the rectum by feces. There is mild distal rectal wall thickening as well as slight degree of infiltration of the perirectal fat. The liver, gallbladder, bile ducts, pancreas, spleen, right adrenal are unremarkable. The left adrenal demonstrates a somewhat ill-defined 15 mm nodule which demonstrates nonspecific attenuation. Left kidney contains one or more subcentimeter low-attenuation lesions which are too small to characterize. The right kidney is unremarkable. No renal or ureteral calculi, hydronephrosis, or hydroureter. The prostate is enlarged and heterogeneous. The bladder is unremarkable. There are degenerative changes of the lumbar spine. Small sclerotic focus is seen in the right acetabulum IMPRESSION: Marked distal esophageal wall thickening, could indicate esophagitis. However, suggestion of some luminal irregularity could indicate ulceration and therefore the possibility of neoplasm should be considered. Consider endoscopy if clinically indicated Areas of dense pulmonary parenchymal consolidation in the right upper lobe and right middle lobe, likely pneumonia Small right and trace left pleural effusions Compressive atelectatic changes of the lower lobes bilaterally Nodular opacities in the anterior left upper lobe, could represent areas of acute inflammation or postinflammatory changes Cardiomegaly Borderline right hilar lymphadenopathy Mildly distended cecum, equivocal wall thickening versus mural fecal debris; doubtful significance but focal colitis possible Evidence of mild distal rectal wall thickening and infiltration of the perirectal fat, suggesting proctitis 15 mm left adrenal nodule, nonspecific. Consider further evaluation with adrenal protocol CT if clinically indicated Heterogeneous enlarged prostate Subcentimeter low-attenuation left renal lesions, too small to characterize, most likely benign simple cysts. No further follow-up necessary Other findings as noted, including small right acetabular bone island, degenerative spondylosis The CT scanner at [facility] is accredited by the [employer] and the scans are performed using protocols designed to limit radiation exposure to as low as reasonably achievable to attain images of sufficient resolution adequate for diagnostic evaluation.
[2019-02-17] MEDS: Aspirin EC 81mg tab ORAL SCH (09:07)
[2019-02-17] MEDS: Heparin 5000 units/ml inj SUBQ SCH ×2 (09:09→21:24)
--- NOTE | 2019-02-17 09:57 | NUR ---
CASE MANAGEMENT:REVIEW 02/17/19 SI;RT UPPLER LUNG PNA. JOEL. 99.5 95 20 109/59 97% 2L NA AST 54 IS;CEFTIAXONE IV Q24 HR ZITHROMAX PO Q24 HR VANCO IV Q12 HR TELE STATUS
--- NOTE | 2019-02-17 10:00 | Infectious Diseases Prog Note ---
Assessment/Plan Assessment/Plan Assessment/Plan: 84 yo male with PMHx of COPD, HLD, and HTN who was sent to the ED on 02/12/19 with AMS. CAP CXR RUL infltrate Inf Screen (-) Low grade fever; improving No leukocytosis UTI UA (+) Urine Cx 02/12/19 - <10k GPC AMS JOEL COPD HLD HTN PLAN: - Start Ceftriaxone #2/3 - Continue Azithromycin #6/7 02/16/19 SP Cefepime #5 and vancomycin #5 - Monitor CBC and Temps -legionella ag urine Thank you for this consult. [facility] will continue to follow the patient with you during this hospitalization. Subjective Allergies: Coded Allergies: No Known Allergies (Unverified , 02/12/19) Subjective Afebrile No Leukocytosis Satting well Objective Vital Signs Last 24 Hour Vital Signs Date Time Temp Pulse Resp B/P (MAP) Pulse Ox O2 Delivery O2 Flow Rate FiO2 02/17/19 09:07 60 130/60 02/17/19 08:25 97 Nasal Cannula 2.0 28 02/17/19 08:00 98.0 60 20 130/60 (83) 97 02/17/19 07:14 84 20 100 Nasal Cannula 2.0 28 82 20 97 02/17/19 04:00 84 02/17/19 04:00 98.9 86 18 109/59 (76) 98 02/17/19 03:26 81 18 99 Nasal Cannula 2.0 28 78 18 97 02/17/19 00:00 89 02/17/19 00:00 98.7 90 18 125/73 (90) 96 02/16/19 21:55 2.0 02/16/19 21:00 Nasal Cannula 2.0 02/16/19 20:00 99.5 95 20 129/75 (93) 98 02/16/19 20:00 96 02/16/19 19:44 93 18 99 Nasal Cannula 2.0 28 91 18 98 02/16/19 19:42 98 Nasal Cannula 2.0 28 02/16/19 15:53 97.8 87 18 111/58 (75) 94 02/16/19 15:41 82 20 98 Room Air 21 84 20 94 02/16/19 12:06 98.4 85 18 125/68 (87) 100 12/30/19 12:00 86 02/16/19 10:44 84 20 99 Nasal Cannula 2.0 28 87 18 98 Height (Feet): 5 Height (Inches): 10.00 Weight (Pounds): 151 Objective Gen: NAD, Awake HEENT: NCAT, MMM, EOMI LUNGS: Coarse B/L CARDS: RRR, S1, S2 ABD: Soft, NT, ND Laboratory Tests Test 02/17/19 06:45 White Blood Count 6.2 K/UL (4.8-10.8) Red Blood Count 3.91 M/UL (4.70-6.10) L Hemoglobin 11.5 G/DL (14.2-18.0) L Hematocrit 34.8 % (42.0-52.0) L Mean Corpuscular Volume 89 FL (80-99) Mean Corpuscular Hemoglobin 29.5 PG (27.0-31.0) Mean Corpuscular Hemoglobin Concent 33.2 G/DL (32.0-36.0) Red Cell Distribution Width 12.8 % (11.6-14.8) Platelet Count 163 K/UL (150-450) Mean Platelet Volume 7.9 FL (6.5-10.1) Neutrophils (%) (Auto) 65.1 % (45.0-75.0) Lymphocytes (%) (Auto) 20.0 % (20.0-45.0) Monocytes (%) (Auto) 9.5 % (1.0-10.0) Eosinophils (%) (Auto) 3.3 % (0.0-3.0) H Basophils (%) (Auto) 2.1 % (0.0-2.0) H Erythrocyte Sedimentation Rate Pending Sodium Level 134 MMOL/L (136-145) L Potassium Level 3.6 MMOL/L (3.5-5.1) Chloride Level 99 MMOL/L (98-107) Carbon Dioxide Level 30 MMOL/L (21-32) Anion Gap 5 mmol/L (5-15) Blood Urea Nitrogen 16 mg/dL (7-18) Creatinine 1.3 MG/DL (0.55-1.30) Estimat Glomerular Filtration Rate mL/min (>60) Glucose Level 92 MG/DL (74-106) Calcium Level 8.6 MG/DL (8.5-10.1) Phosphorus Level 2.9 MG/DL (2.5-4.9) Magnesium Level 1.7 MG/DL (1.8-2.4) L Total Bilirubin 0.8 MG/DL (0.2-1.0) Aspartate Amino Transf (AST/SGOT) 54 U/L (15-37) H Alanine Aminotransferase (ALT/SGPT) 39 U/L (12-78) Alkaline Phosphatase 54 U/L (46-116) C-Reactive Protein, Quantitative 12.0 mg/dL (0.00-0.90) H Total Protein 7.0 G/DL (6.4-8.2) Albumin 2.2 G/DL (3.4-5.0) L Globulin 4.8 g/dL Albumin/Globulin Ratio 0.5 (1.0-2.7) L Current Medications Medications (Trade) Dose Ordered Sig/Nixon Route PRN Reason Start Time Stop Time Status Last Admin Dose Admin Acetaminophen (Tylenol) 650 mg Q4H PRN ORAL fever 02/12/19 13:15 03/14/19 13:14 02/14/19 20:27 Acetaminophen/ Hydrocodone Bitart ([place] 7.5/325) 1 tab Q6H PRN ORAL For Pain 02/12/19 13:15 02/19/19 13:14 Albuterol/ Ipratropium (Albuterol/ Ipratropium) 3 ml Q4HRT HHN 02/13/19 15:00 02/18/19 14:59 02/17/19 07:04 Amlodipine Besylate (Norvasc) 5 mg DAILY ORAL 02/13/19 09:00 03/15/19 08:59 02/17/19 09:07 Aspirin (Ecotrin) 81 mg DAILY ORAL 02/13/19 09:00 03/15/19 08:59 02/17/19 09:07 Atorvastatin Calcium (Lipitor) 80 mg BEDTIME ORAL 02/12/19 21:00 03/14/19 20:59 02/16/19 21:20 Azithromycin (Zithromax) 250 mg Q24H ORAL 02/15/19 13:00 02/19/19 13:59 02/16/19 14:09 Barium Sulfate (Readi-Cat 2) 450 ml NOW PRN ORAL Radiology Procedure 02/16/19 12:30 02/18/19 12:19 Barium Sulfate (Readi-Cat 2) 450 ml NOW PRN ORAL Radiology Procedure 02/16/19 14:15 02/18/19 14:15 Ceftriaxone Sodium 1 gm/ Dextrose 55 ml @ 110 mls/hr Q24H IVPB 02/16/19 14:00 02/23/19 13:59 02/16/19 14:00 Heparin Sodium (Porcine) (Heparin 5000 units/ml) 5,000 units EVERY 12 HOURS SUBQ 02/12/19 21:00 03/14/19 20:59 02/17/19 09:09 Iohexol (OMNIPAQUE-300 100ml) 100 ml ONCE PRN INJ radiology procedure 02/16/19 14:15 02/18/19 14:14 Levetiracetam (Keppra) 1,000 mg Q12HR ORAL 02/12/19 21:00 03/14/19 20:59 02/17/19 09:07 Nitroglycerin (Ntg) 0.4 mg Q5M PRN SL Prn Chest Pain 02/12/19 13:15 03/14/19 13:14 Ondansetron HCl (Zofran) 4 mg Q6H PRN IVP Nausea & Vomiting 02/12/19 13:15 03/14/19 13:14 Polyethylene Glycol (Miralax) 17 gm DAILYPRN PRN ORAL Constipation 02/12/19 13:15 03/14/19 13:14 Promethazine HCl/ Codeine (Phenergan with Codeine) 5 ml Q4H PRN ORAL For Cough 02/12/19 13:15 03/14/19 13:14 Temazepam (Restoril) 15 mg HSPRN PRN ORAL Insomnia 02/12/19 13:15 02/19/19 13:14 02/13/19 22:36 Martinez Banda MD Feb 17, 2019 10:00
--- NOTE | 2019-02-17 10:53 | Pulmonology Progress Note ---
Assessment/Plan Problems: (1) Pneumonia (2) Sinus tachycardia (3) JOEL (acute kidney injury) (4) Altered level of consciousness (5) BPH (benign prostatic hyperplasia) Assessment/Plan respiratory treatment titrate fio2 to sat of 92% renal Us reviewed dc iv fluids, check sputum not done yet start feeding CT reviewed: extensive infiltrate at RUL cardiac evaluation for optimizing cardiac meds. Subjective ROS Limited/Unobtainable: No Constitutional: Reports: no symptoms HEENT: Repors: no symptoms Respiratory: Reports: no symptoms Allergies: Coded Allergies: No Known Allergies (Unverified , 02/12/19) Objective Last 24 Hour Vital Signs Date Time Temp Pulse Resp B/P (MAP) Pulse Ox O2 Delivery O2 Flow Rate FiO2 02/17/19 09:07 60 130/60 02/17/19 08:25 97 Nasal Cannula 2.0 28 02/17/19 08:00 98.0 60 20 130/60 (83) 97 02/17/19 07:14 84 20 100 Nasal Cannula 2.0 28 82 20 97 02/17/19 04:00 84 02/17/19 04:00 98.9 86 18 109/59 (76) 98 02/17/19 03:26 81 18 99 Nasal Cannula 2.0 28 78 18 97 02/17/19 00:00 89 02/17/19 00:00 98.7 90 18 125/73 (90) 96 02/16/19 21:55 2.0 02/16/19 21:00 Nasal Cannula 2.0 02/16/19 20:00 99.5 95 20 129/75 (93) 98 02/16/19 20:00 96 02/16/19 19:44 93 18 99 Nasal Cannula 2.0 28 91 18 98 02/16/19 19:42 98 Nasal Cannula 2.0 28 02/16/19 15:53 97.8 87 18 111/58 (75) 94 02/16/19 15:41 82 20 98 Room Air 21 84 20 94 02/16/19 12:06 98.4 85 18 125/68 (87) 100 02/16/19 12:00 86 Intake and Output 02/16/19 02/17/19 19:00 07:00 Intake Total 605.000 ml Output Total 400 ml Balance 605.000 ml -400 ml Intake Oral 220 ml IV Total 385.000 ml Output Urine Total 400 ml Objective General Appearance: WD/WN, no apparent distress Lines, tubes and drains: peripheral HEENT: normocephalic, atraumatic Neck: non-tender, normal alignment Respiratory/Chest: chest wall non-tender, lungs clear Cardiovascular/Chest: normal peripheral pulses, regular rhythm Abdomen: normal bowel sounds, non tender Skin Exam: normal pigmentation Neurologic: personnel representative II-XII grossly normal Laboratory Tests 02/17/19 06:45: White Blood Count 6.2, Red Blood Count 3.91L, Hemoglobin 11.5L, Hematocrit 34.8L , Mean Corpuscular Volume 89, Mean Corpuscular Hemoglobin 29.5, Mean Corpuscular Hemoglobin Concent 33.2, Red Cell Distribution Width 12.8, Platelet Count 163, Mean Platelet Volume 7.9, Neutrophils (%) (Auto) 65.1, Lymphocytes (% ) (Auto) 20.0, Monocytes (%) (Auto) 9.5, Eosinophils (%) (Auto) 3.3H, Basophils (%) (Auto) 2.1H, Erythrocyte Sedimentation Rate 101H, Sodium Level 134L, Potassium Level 3.6, Chloride Level 99, Carbon Dioxide Level 30, Anion Gap 5, Blood Urea Nitrogen 16, Creatinine 1.3, Estimat Glomerular Filtration Rate , Glucose Level 92, Calcium Level 8.6, Phosphorus Level 2.9, Magnesium Level 1.7L , Total Bilirubin 0.8, Aspartate Amino Transf (AST/SGOT) 54H, Alanine Aminotransferase (ALT/SGPT) 39, Alkaline Phosphatase 54, C-Reactive Protein, Quantitative 12.0H, Total Protein 7.0, Albumin 2.2L, Globulin 4.8, Albumin/ Globulin Ratio 0.5L Current Medications Medications (Trade) Dose Ordered Sig/Nixon Route PRN Reason Start Time Stop Time Status Last Admin Dose Admin Acetaminophen (Tylenol) 650 mg Q4H PRN ORAL fever 02/12/19 13:15 03/14/19 13:14 02/14/19 20:27 Acetaminophen/ Hydrocodone Bitart ([place] 7.5/325) 1 tab Q6H PRN ORAL For Pain 02/12/19 13:15 02/19/19 13:14 Albuterol/ Ipratropium (Albuterol/ Ipratropium) 3 ml Q4HRT HHN 02/13/19 15:00 1/1/20 14:59 02/17/19 10:36 Amlodipine Besylate (Norvasc) 5 mg DAILY ORAL 02/13/19 09:00 03/15/19 08:59 02/17/19 09:07 Aspirin (Ecotrin) 81 mg DAILY ORAL 02/13/19 09:00 03/15/19 08:59 02/17/19 09:07 Atorvastatin Calcium (Lipitor) 80 mg BEDTIME ORAL 02/12/19 21:00 03/14/19 20:59 02/16/19 21:20 Azithromycin (Zithromax) 250 mg Q24H ORAL 02/15/19 13:00 02/19/19 13:59 02/16/19 14:09 Barium Sulfate (Readi-Cat 2) 450 ml NOW PRN ORAL Radiology Procedure 02/16/19 12:30 02/18/19 12:19 Barium Sulfate (Readi-Cat 2) 450 ml NOW PRN ORAL Radiology Procedure 02/16/19 14:15 02/18/19 14:15 Ceftriaxone Sodium 1 gm/ Dextrose 55 ml @ 110 mls/hr Q24H IVPB 02/16/19 14:00 02/23/19 13:59 02/16/19 14:00 Heparin Sodium (Porcine) (Heparin 5000 units/ml) 5,000 units EVERY 12 HOURS SUBQ 02/12/19 21:00 03/14/19 20:59 02/17/19 09:09 Iohexol (OMNIPAQUE-300 100ml) 100 ml ONCE PRN INJ radiology procedure 02/16/19 14:15 02/18/19 14:14 Levetiracetam (Keppra) 1,000 mg Q12HR ORAL 02/12/19 21:00 03/14/19 20:59 02/17/19 09:07 Nitroglycerin (Ntg) 0.4 mg Q5M PRN SL Prn Chest Pain 02/12/19 13:15 03/14/19 13:14 Ondansetron HCl (Zofran) 4 mg Q6H PRN IVP Nausea & Vomiting 02/12/19 13:15 03/14/19 13:14 Polyethylene Glycol (Miralax) 17 gm DAILYPRN PRN ORAL Constipation 02/12/19 13:15 03/14/19 13:14 Promethazine HCl/ Codeine (Phenergan with Codeine) 5 ml Q4H PRN ORAL For Cough 02/12/19 13:15 03/14/19 13:14 Temazepam (Restoril) 15 mg HSPRN PRN ORAL Insomnia 02/12/19 13:15 02/19/19 13:14 02/13/19 22:36 Cristian Yun MD Feb 17, 2019 10:53
--- NOTE | 2019-02-17 11:00 | NUR ---
ST NOTES: SWALLOW STATUS: PATIENT WAS CLEARED BY FOR PO DIET ON 02/16/19 FOR QUALITY OF LIFE PURPOSES YESTERDAY). PATIENT IS NOT RECEPTIVE TO PO TRIAL AT THIS TIME. WILL TRY LATER. HE IS ON THE LIST FOR A MOD BARIUM SWALLOW STUDY(MBSS) SINCE HE HAS A HIGH RISK OF SILENT ASPIRATION. GOALS NOT CONSISTENTLY MET FOR INTAKE OF 75% OR MORE. GIVEN THAT INTAKE IS SO SLOW AND POOR (ONLY 10-25%-75%), WILL SEND HIGH CALORIE SUPPLEMENTS (ENSURE ENLIVE TID UNTIL RD MAKES A RECOMMENDATION FOR DIET TYPE AND HCS TYPE). PER RNSHAKIRA, NO OVERT S/S OF ASPIRATION WITH PUREED/CRUSHED MEDS AND ONLY TOOK 15 MINUTES TO FINISH HIS REGULAR TYPE MECH SOFT FINELY CHOPPED DIET AND THIN LIQUIDS.HE HAS SOME FOOD PREFERENCES PER RN. GIVEN HIS HIGH RISK FOR SILENT ASPIRATION, WILL TRY TO COMPLETE A MOD BARIUM SWALLOW STUDY TODAY. POSTED ASP/REFLUX PRECAUTIONS SIGN UNTIL MBSS COMPLETED. MOST RECENT CXR NOTES ON 02/16/19: Bilateral interstitial and airspace opacities, left pleural effusion are unchanged on the left, slightly increased on the right. The heart remains borderline enlarged. Impression: Slightly increasing airspace opacities on the right, over 2 days.Otherwise stable findings as described. PLAN: F/UP WITH PLAN OF CARE IN SWALLOW EVAL REPORT MBSS IP OR OP IF DC EDUCATED/TRAINED JAKY ROSENBERG AND JOHN IN POSTED PREACAUTIONS Addendum: 02/17/19 at 1331 by GABRIEL APPLE PLANT OPERATIONS VICE PRESIDENT UPDATED NOTE: SWALLOW STATUS: LAST SEEN FOR SWALLOW EVAL ON 02/13/19. NO PLANT OPERATIONS VICE PRESIDENT COVERAGE FOR WEEKEND UNTIL SEEN TODAY. PATIENT WAS CLEARED BY MD FOR PO DIET ON 02/16/19 FOR QUALITY OF LIFE PURPOSES YESTERDAY). PATIENT IS NOT RECEPTIVE TO PO TRIALS AT THIS TIME. WILL TRY LATER. HE IS ON THE LIST FOR A MOD BARIUM SWALLOW STUDY(MBSS) SINCE HE HAS A HIGH RISK OF SILENT ASPIRATION. WILL DOWNGRADE TO NECTAR THICK LIQUIDS UNTIL MBSS HE ALSO HAS A PNA AND MAY BE SILENTLY ASPIRATING ON THIN LIQUIDS. GOALS NOT CONSISTENTLY MET FOR INTAKE OF 75% OR MORE. GIVEN THAT INTAKE IS SO SLOW AND POOR (ONLY 10-25%-75%), WILL SEND HIGH CALORIE SUPPLEMENTS (ENSURE ENLIVE TID UNTIL RD MAKES A RECOMMENDATION FOR DIET TYPE AND HCS TYPE). PER RN, SHAKIRA, NO OVERT S/S OF ASPIRATION WITH PUREED/CRUSHED MEDS AND ONLY TOOK 15 MINUTES TO FINISH HIS REGULAR TYPE MECH SOFT FINELY CHOPPED DIET AND THIN LIQUIDS.HE HAS SOME FOOD PREFERENCES PER RN. POSTED ASP/REFLUX PRECAUTIONS SIGN UNTIL MBSS COMPLETED. MOST RECENT CXR NOTES ON 02/16/19: Bilateral interstitial and airspace opacities, left pleural effusion are unchanged on the left, slightly increased on the right. The heart remains borderline enlarged. Impression: Slightly increasing airspace opacities on the right, over 2 days.Otherwise stable findings as described. PLAN: F/UP WITH PLAN OF CARE IN SWALLOW EVAL REPORT MBSS IP OR OP IF DC DOWNGRADE TO NECTAR THICK LIQUIDS UNTIL MBSS EDUCATED/TRAINED RN SHAKIRA AND HEEL CEMENTER IN POSTED PRECAUTIONS
--- NOTE | 2019-02-17 11:03 | NUR ---
RD ASSESSMENT & RECOMMENDATIONS SEE CARE ACTIVITY FOR COMPLETE ASSESSMENT DAILY ESTIMATED NEEDS: Needs based on Cardiac, pulmonary 77kg 25-30 kcals/kg 6482-9478 total kcals 1-1.5 g protein/kg 77-116 g total protein 20-25 mL/kg 2409-5532 total fluid mLs NUTRITION DIAGNOSIS: Chewing/ swallowing difficulty r/y dysphagia as evidenced by pt seen by JUMPBASTING MACHINE OPERATOR currently on finely chopped textured diet w/ poor po intake. CURRENT DIET: Regular ms finely chopped PO DIET RECOMMENDATIONS: Maintain liberalized regular diet w/ continued poor po intake ADDITIONAL RECOMMENDATIONS: 1) Add Ensure TID w/ meals -> Poor po intake 2) Calibrated bed scale wts 3) Replete lytes as needed (Low Mg) 4) Bowel regimen- last BM 02/14
[2019-02-17 12:00] VITALS: BP 100/50
[2019-02-17] MEDS ORDERED: Magnesium Oxide 400mg tab ORAL SCH (12:15)
--- NOTE | 2019-02-17 12:15 | NUR ---
NURSE NOTES: Dr VARGAS visited pt and aware MG 1.7 and other lab results and V/S, order noted and carried out. will continue to monitor.
[2019-02-17] MEDS: Azithromycin 250mg tab ORAL SCH (12:48)
--- NOTE | 2019-02-17 13:23 | Internal Med Progress Note ---
Subjective Date of Service: Feb 17, 2019 Physician Name Tony Lutz Attending Physician Robert Bergman MD Current Medications Medications (Trade) Dose Ordered Sig/Nixon Route PRN Reason Start Time Stop Time Status Last Admin Dose Admin Acetaminophen (Tylenol) 650 mg Q4H PRN ORAL fever 02/12/19 13:15 03/14/19 13:14 02/14/19 20:27 Acetaminophen/ Hydrocodone Bitart ([place] 7.5/325) 1 tab Q6H PRN ORAL For Pain 02/12/19 13:15 02/19/19 13:14 Albuterol/ Ipratropium (Albuterol/ Ipratropium) 3 ml Q4HRT HHN 02/13/19 15:00 02/18/19 14:59 02/17/19 10:36 Amlodipine Besylate (Norvasc) 5 mg DAILY ORAL 02/13/19 09:00 03/15/19 08:59 02/17/19 09:07 Aspirin (Ecotrin) 81 mg DAILY ORAL 02/13/19 09:00 03/15/19 08:59 02/17/19 09:07 Atorvastatin Calcium (Lipitor) 80 mg BEDTIME ORAL 02/12/19 21:00 03/14/19 20:59 02/16/19 21:20 Azithromycin (Zithromax) 250 mg Q24H ORAL 02/15/19 13:00 02/19/19 13:59 02/17/19 12:48 Barium Sulfate (Readi-Cat 2) 450 ml NOW PRN ORAL Radiology Procedure 02/16/19 12:30 02/18/19 12:19 Barium Sulfate (Readi-Cat 2) 450 ml NOW PRN ORAL Radiology Procedure 02/16/19 14:15 02/18/19 14:15 Ceftriaxone Sodium 1 gm/ Dextrose 55 ml @ 110 mls/hr Q24H IVPB 02/16/19 14:00 02/23/19 13:59 02/16/19 14:00 Heparin Sodium (Porcine) (Heparin 5000 units/ml) 5,000 units EVERY 12 HOURS SUBQ 02/12/19 21:00 03/14/19 20:59 02/17/19 09:09 Iohexol (OMNIPAQUE-300 100ml) 100 ml ONCE PRN INJ radiology procedure 02/16/19 14:15 02/18/19 14:14 Levetiracetam (Keppra) 1,000 mg Q12HR ORAL 02/12/19 21:00 03/14/19 20:59 02/17/19 09:07 Magnesium Oxide (Mag-Ox 400mg) 400 mg ONCE ORAL 02/17/19 12:15 02/17/19 13:15 02/17/19 12:48 Nitroglycerin (Ntg) 0.4 mg Q5M PRN SL Prn Chest Pain 02/12/19 13:15 03/14/19 13:14 Ondansetron HCl (Zofran) 4 mg Q6H PRN IVP Nausea & Vomiting 02/12/19 13:15 03/14/19 13:14 Polyethylene Glycol (Miralax) 17 gm DAILYPRN PRN ORAL Constipation 02/12/19 13:15 03/14/19 13:14 Promethazine HCl/ Codeine (Phenergan with Codeine) 5 ml Q4H PRN ORAL For Cough 02/12/19 13:15 03/14/19 13:14 Temazepam (Restoril) 15 mg HSPRN PRN ORAL Insomnia 02/12/19 13:15 02/19/19 13:14 02/13/19 22:36 Allergies: Coded Allergies: No Known Allergies (Unverified , 02/12/19) ROS Limited/Unobtainable: Yes Subjective 84 YO M admitted with fever and cough. Now RUL pneumonia. Cover for Int Ari- DR Bergman Objective Last Vital Signs Date Time Temp Pulse Resp B/P (MAP) Pulse Ox O2 Delivery O2 Flow Rate FiO2 02/17/19 10:46 86 18 98 Nasal Cannula 2.0 28 88 20 95 02/17/19 09:07 130/60 02/17/19 08:00 98.0 Laboratory Tests Test 02/17/19 06:45 White Blood Count 6.2 K/UL (4.8-10.8) Red Blood Count 3.91 M/UL (4.70-6.10) L Hemoglobin 11.5 G/DL (14.2-18.0) L Hematocrit 34.8 % (42.0-52.0) L Mean Corpuscular Volume 89 FL (80-99) Mean Corpuscular Hemoglobin 29.5 PG (27.0-31.0) Mean Corpuscular Hemoglobin Concent 33.2 G/DL (32.0-36.0) Red Cell Distribution Width 12.8 % (11.6-14.8) Platelet Count 163 K/UL (150-450) Mean Platelet Volume 7.9 FL (6.5-10.1) Neutrophils (%) (Auto) 65.1 % (45.0-75.0) Lymphocytes (%) (Auto) 20.0 % (20.0-45.0) Monocytes (%) (Auto) 9.5 % (1.0-10.0) Eosinophils (%) (Auto) 3.3 % (0.0-3.0) H Basophils (%) (Auto) 2.1 % (0.0-2.0) H Erythrocyte Sedimentation Rate 101 MM/HR (0-20) H Sodium Level 134 MMOL/L (136-145) L Potassium Level 3.6 MMOL/L (3.5-5.1) Chloride Level 99 MMOL/L (98-107) Carbon Dioxide Level 30 MMOL/L (21-32) Anion Gap 5 mmol/L (5-15) Blood Urea Nitrogen 16 mg/dL (7-18) Creatinine 1.3 MG/DL (0.55-1.30) Estimat Glomerular Filtration Rate mL/min (>60) Glucose Level 92 MG/DL (74-106) Calcium Level 8.6 MG/DL (8.5-10.1) Phosphorus Level 2.9 MG/DL (2.5-4.9) Magnesium Level 1.7 MG/DL (1.8-2.4) L Total Bilirubin 0.8 MG/DL (0.2-1.0) Aspartate Amino Transf (AST/SGOT) 54 U/L (15-37) H Alanine Aminotransferase (ALT/SGPT) 39 U/L (12-78) Alkaline Phosphatase 54 U/L (46-116) C-Reactive Protein, Quantitative 12.0 mg/dL (0.00-0.90) H Total Protein 7.0 G/DL (6.4-8.2) Albumin 2.2 G/DL (3.4-5.0) L Globulin 4.8 g/dL Albumin/Globulin Ratio 0.5 (1.0-2.7) L Intake and Output 02/16/19 02/17/19 19:00 07:00 Intake Total 605.000 ml Output Total 400 ml Balance 605.000 ml -400 ml Intake Oral 220 ml IV Total 385.000 ml Output Urine Total 400 ml Objective Objective GENERAL: The patient is cachectic, malnutrition and more responsive HEAD AND NECK: Pupils are reactive to light. Anicteric. NECK: Supple. No JVD. LUNGS: Good air entry. + expiratory wheezing, + basal crackles. ABDOMEN: Soft, nondistended, and nontender. Positive bowel sounds. EXTREMITIES: No cyanosis, clubbing, or edema. NEUROLOGIC: Very limited secondary to the patient's status. However, the patient is moving extremities spontaneously. Gait was not assessed due to the patient's status. Assessment/Plan Assessment/Plan Assessment/Plan Assessment/Plan ASSESSMENT: 1. Altered mental status 2. Acute kidney injury and chronic renal insufficiency. 3. Dehydration and hypovolemia. 4. Pneumonia. 5. Hypertension. 6. Dyslipidemia. 7. Chronic obstructive pulmonary disease. 8. RUL pneumonia PLAN: 1. Admit the patient to monitored unit. 2. We will follow up with Dr. Yun, Pulmonary Critical Care and Dr. Romero Sunshine from Nephrology. 3. On IV hydration. 4. Monitor labs and cultures. 5. DVT prophylaxis with heparin subcutaneous. 6. Follow up with the nebulizer treatment as needed. 7. antibiotic= cefepime and azithromycin per ID=Dr Banda 8. We will follow up with the viral study. 9. Code status: Full Code. Tony Lutz MD Feb 17, 2019 13:23
--- NOTE | 2019-02-17 13:50 | NUR ---
NURSE NOTES: pt is awake and stable, left unit for video swallow. waiting for come back.
[2019-02-17] MEDS: cefTRIAXone 1 GM in D5W 55 ML IVPB SCH (14:34)
--- NOTE | 2019-02-17 14:35 | NUR ---
NURSE NOTES: pt is stable, came back from [facility], will continue to monitor.
[2019-02-17 16:00] VITALS: BP 127/80
--- NOTE | 2019-02-17 19:35 | NUR ---
HAND-OFF: Report given to CELSO STARKEY. Pt is awake and stable.
[2019-02-17 20:00] VITALS: BP 116/71
[2019-02-17] MEDS: Atorvastatin 80mg tab ORAL SCH (21:25)
[2019-02-18] VITALS (7 sets, daily range): BP systolic 105–132; BP diastolic 63–77
[2019-02-18] MEDS: Albuterol/Ipratropium 3ml neb HHN SCH ×6 (03:00→23:52)
--- NOTE | 2019-02-18 08:03 | NUR ---
NURSE NOTES: patient awake alert, no distress. no sob. no c/o pain. call light within reach. will monitor.
[2019-02-18] MEDS: Aspirin EC 81mg tab ORAL SCH (08:26)
[2019-02-18] MEDS: Heparin 5000 units/ml inj SUBQ SCH ×2 (08:28→20:42)
--- NOTE | 2019-02-18 09:13 | Pulmonology Progress Note ---
Assessment/Plan Problems: (1) Pneumonia (2) Sinus tachycardia (3) JOEL (acute kidney injury) (4) Altered level of consciousness (5) BPH (benign prostatic hyperplasia) Assessment/Plan respiratory treatment titrate fio2 to sat of 92% renal Us reviewed dc iv fluids, check sputum not done yet, Urine culture has gram ;positive tolerating feeding CT reviewed: extensive infiltrate at RUL cardiac evaluation for optimizing cardiac meds. Subjective ROS Limited/Unobtainable: No Constitutional: Reports: no symptoms HEENT: Repors: no symptoms Respiratory: Reports: no symptoms Cardiovascular: Reports: no symptoms Allergies: Coded Allergies: No Known Allergies (Unverified , 02/12/19) Objective Last 24 Hour Vital Signs Date Time Temp Pulse Resp B/P (MAP) Pulse Ox O2 Delivery O2 Flow Rate FiO2 02/18/19 08:28 80 20 99 Nasal Cannula 2.0 28 77 20 97 02/18/19 08:27 97 Nasal Cannula 2.0 28 02/18/19 08:26 85 132/75 02/18/19 08:00 98.4 85 18 132/71 (91) 98 02/18/19 07:48 Nasal Cannula 2.0 02/18/19 04:00 98.4 127/77 (94) 02/18/19 03:50 90 02/18/19 03:00 89 18 98 Nasal Cannula 2.0 28 87 18 94 02/18/19 00:00 87 02/18/19 00:00 98.8 20 123/77 (92) 96 02/18/19 00:00 87 02/17/19 21:00 Nasal Cannula 2.0 02/17/19 20:00 98.8 93 20 116/71 (86) 96 02/17/19 20:00 87 02/17/19 19:53 86 18 98 Nasal Cannula 2.0 28 85 18 95 02/17/19 19:52 95 Nasal Cannula 2.0 28 02/17/19 16:09 93 02/17/19 16:00 97.5 93 20 127/80 (96) 96 02/17/19 15:45 84 20 99 Nasal Cannula 2.0 28 82 20 96 02/17/19 12:00 97.9 91 20 100/50 (67) 97 02/17/19 11:52 87 02/17/19 10:46 86 18 98 Nasal Cannula 2.0 28 88 20 95 Intake and Output 02/17/19 02/18/19 19:00 07:00 Intake Total 55 ml Balance 55 ml IV Total 55 ml # Voids 1 1 # Bowel Movements 2 Objective General Appearance: WD/WN, no apparent distress Lines, tubes and drains: peripheral HEENT: normocephalic, atraumatic Neck: non-tender, normal alignment Respiratory/Chest: chest wall non-tender, lungs clear Cardiovascular/Chest: normal peripheral pulses, regular rhythm Abdomen: normal bowel sounds, non tender Skin Exam: normal pigmentation Neurologic: carpet layer II-XII grossly normal Current Medications Medications (Trade) Dose Ordered Sig/Nixon Route PRN Reason Start Time Stop Time Status Last Admin Dose Admin Acetaminophen (Tylenol) 650 mg Q4H PRN ORAL fever 02/12/19 13:15 03/14/19 13:14 02/14/19 20:27 Acetaminophen/ Hydrocodone Bitart ([place] 7.5/325) 1 tab Q6H PRN ORAL For Pain 02/12/19 13:15 02/19/19 13:14 Albuterol/ Ipratropium (Albuterol/ Ipratropium) 3 ml Q4HRT HHN 02/13/19 15:00 02/18/19 14:59 02/18/19 08:30 Amlodipine Besylate (Norvasc) 5 mg DAILY ORAL 02/13/19 09:00 03/15/19 08:59 02/18/19 08:26 Aspirin (Ecotrin) 81 mg DAILY ORAL 02/13/19 09:00 03/15/19 08:59 02/18/19 08:26 Atorvastatin Calcium (Lipitor) 80 mg BEDTIME ORAL 02/12/19 21:00 03/14/19 20:59 02/17/19 21:25 Azithromycin (Zithromax) 250 mg Q24H ORAL 02/15/19 13:00 02/19/19 13:59 02/17/19 12:48 Barium Sulfate (Readi-Cat 2) 450 ml NOW PRN ORAL Radiology Procedure 02/16/19 12:30 02/18/19 12:19 Barium Sulfate (Readi-Cat 2) 450 ml NOW PRN ORAL Radiology Procedure 02/16/19 14:15 02/18/19 14:15 Ceftriaxone Sodium 1 gm/ Dextrose 55 ml @ 110 mls/hr Q24H IVPB 02/16/19 14:00 02/23/19 13:59 02/17/19 14:34 Heparin Sodium (Porcine) (Heparin 5000 units/ml) 5,000 units EVERY 12 HOURS SUBQ 02/12/19 21:00 03/14/19 20:59 02/18/19 08:28 Iohexol (OMNIPAQUE-300 100ml) 100 ml ONCE PRN INJ radiology procedure 02/16/19 14:15 02/18/19 14:14 Levetiracetam (Keppra) 1,000 mg Q12HR ORAL 02/12/19 21:00 03/14/19 20:59 02/18/19 08:26 Nitroglycerin (Ntg) 0.4 mg Q5M PRN SL Prn Chest Pain 02/12/19 13:15 03/14/19 13:14 Ondansetron HCl (Zofran) 4 mg Q6H PRN IVP Nausea & Vomiting 02/12/19 13:15 03/14/19 13:14 Polyethylene Glycol (Miralax) 17 gm DAILYPRN PRN ORAL Constipation 02/12/19 13:15 03/14/19 13:14 Promethazine HCl/ Codeine (Phenergan with Codeine) 5 ml Q4H PRN ORAL For Cough 02/12/19 13:15 03/14/19 13:14 Temazepam (Restoril) 15 mg HSPRN PRN ORAL Insomnia 02/12/19 13:15 02/19/19 13:14 02/13/19 22:36 Cristian Yun MD Feb 18, 2019 09:13
[2019-02-18] MEDS: Azithromycin 250mg tab ORAL SCH (13:52)
[2019-02-18] MEDS: cefTRIAXone 1 GM in D5W 55 ML IVPB SCH (14:08)
--- NOTE | 2019-02-18 14:50 | Internal Med Progress Note ---
Subjective Date of Service: Feb 18, 2019 Physician Name Tony Lutz Attending Physician Robert Bergman MD Current Medications Medications (Trade) Dose Ordered Sig/Nixon Route PRN Reason Start Time Stop Time Status Last Admin Dose Admin Acetaminophen (Tylenol) 650 mg Q4H PRN ORAL fever 02/12/19 13:15 03/14/19 13:14 02/14/19 20:27 Acetaminophen/ Hydrocodone Bitart ([place] 7.5/325) 1 tab Q6H PRN ORAL For Pain 02/12/19 13:15 02/19/19 13:14 Albuterol/ Ipratropium (Albuterol/ Ipratropium) 3 ml Q4HRT HHN 02/13/19 15:00 02/18/19 14:59 02/18/19 11:00 Amlodipine Besylate (Norvasc) 5 mg DAILY ORAL 02/13/19 09:00 03/15/19 08:59 02/18/19 08:26 Aspirin (Ecotrin) 81 mg DAILY ORAL 02/13/19 09:00 03/15/19 08:59 02/18/19 08:26 Atorvastatin Calcium (Lipitor) 80 mg BEDTIME ORAL 02/12/19 21:00 03/14/19 20:59 02/17/19 21:25 Azithromycin (Zithromax) 250 mg Q24H ORAL 02/15/19 13:00 02/19/19 13:59 02/18/19 13:52 Ceftriaxone Sodium 1 gm/ Dextrose 55 ml @ 110 mls/hr Q24H IVPB 02/16/19 14:00 02/23/19 13:59 02/18/19 14:08 Heparin Sodium (Porcine) (Heparin 5000 units/ml) 5,000 units EVERY 12 HOURS SUBQ 02/12/19 21:00 03/14/19 20:59 02/18/19 08:28 Levetiracetam (Keppra) 1,000 mg Q12HR ORAL 02/12/19 21:00 03/14/19 20:59 02/18/19 08:26 Nitroglycerin (Ntg) 0.4 mg Q5M PRN SL Prn Chest Pain 02/12/19 13:15 03/14/19 13:14 Ondansetron HCl (Zofran) 4 mg Q6H PRN IVP Nausea & Vomiting 02/12/19 13:15 03/14/19 13:14 Polyethylene Glycol (Miralax) 17 gm DAILYPRN PRN ORAL Constipation 02/12/19 13:15 03/14/19 13:14 Promethazine HCl/ Codeine (Phenergan with Codeine) 5 ml Q4H PRN ORAL For Cough 02/12/19 13:15 03/14/19 13:14 Temazepam (Restoril) 15 mg HSPRN PRN ORAL Insomnia 02/12/19 13:15 02/19/19 13:14 02/13/19 22:36 Allergies: Coded Allergies: No Known Allergies (Unverified , 02/12/19) ROS Limited/Unobtainable: Yes Subjective 84 YO M admitted with fever and cough. Now RUL pneumonia. Cover for Int Med- DR Bergman Objective Last Vital Signs Date Time Temp Pulse Resp B/P (MAP) Pulse Ox O2 Delivery O2 Flow Rate FiO2 02/18/19 13:44 98.4 95 18 116/67 (83) 98 02/18/19 11:59 Nasal Cannula 2.0 28 Intake and Output 02/17/19 02/18/19 19:00 07:00 Intake Total 55 ml Balance 55 ml IV Total 55 ml # Voids 1 1 # Bowel Movements 2 Objective Objective GENERAL: The patient is cachectic, malnutrition and more responsive HEAD AND NECK: Pupils are reactive to light. Anicteric. NECK: Supple. No JVD. LUNGS: Good air entry. + expiratory wheezing, + basal crackles. ABDOMEN: Soft, nondistended, and nontender. Positive bowel sounds. EXTREMITIES: No cyanosis, clubbing, or edema. NEUROLOGIC: Very limited secondary to the patient's status. However, the patient is moving extremities spontaneously. Gait was not assessed due to the patient's status. Assessment/Plan Assessment/Plan Assessment/Plan Assessment/Plan ASSESSMENT: 1. Altered mental status 2. Acute kidney injury and chronic renal insufficiency. 3. Dehydration and hypovolemia. 4. Pneumonia. 5. Hypertension. 6. Dyslipidemia. 7. Chronic obstructive pulmonary disease. 8. RUL pneumonia PLAN: 1. Admit the patient to monitored unit. 2. We will follow up with Dr. Yun, Pulmonary Critical Care and Dr. Romero Sunshine from Nephrology. 3. On IV hydration. 4. Monitor labs and cultures. 5. DVT prophylaxis with heparin subcutaneous. 6. Follow up with the nebulizer treatment as needed. 7. antibiotic= cefepime and azithromycin per ID=Dr Banda 8. We will follow up with the viral study. 9. Code status: Full Code. Tony Lutz MD Feb 18, 2019 14:50
--- NOTE | 2019-02-18 19:49 | NUR ---
NURSE NOTES: RECEIVED PATIENT LYING IN BED, ALERT/ORIENTED TO PERSON/PLACE, REALITY ORIENTATION PROVIDED DURING ASSESSMENT, DENIES PAIN. NO SIGNS AND SYMPTOMS OF ACUTE CARDIO RESPIRATORY DISTRESS/SHORTNESS OF BREATH, NO PERIPHERAL EDEMA NOTED-SINUS RHYTHM ON HEARING AID ASSISTANT. IV INTACT TO RIGHT FOREARM/GAUGE 20, NO REDNESS/SWELLING NOTED. INCONTINENT OF BM, CARE PROVIDED, CONDOM CATHETER INTACT, YELLOW URINE DRAINING VIA GRAVITY, NO SEDEMENT NOTED. ASSISTED WITH REPOSITIONING,TOLERATED WELL. SIDE RAILS UP X3/BED IN LOWEST POSITION FOR SAFETY, ENCOURAGED PATIENT TO UTILIZE CALL LIGHT FOR ASSISTANCE, VERBALIZED UNDERSTANDING. CONTINUE WITH CURRENT PLAN OF CARE. NAD.
[2019-02-18] MEDS: Atorvastatin 80mg tab ORAL SCH (20:37)
[2019-02-19] VITALS: BP 119/65
--- NOTE | 2019-02-19 02:32 | NUR ---
NURSE NOTES: RESTING WELL ON ROUNDS. NAD.
[2019-02-19] MEDS: Albuterol/Ipratropium 3ml neb HHN SCH ×3 (03:11→10:54)
[2019-02-19 04:00] VITALS: BP 102/66
[2019-02-19 06:43] LABS: BASOPHILS % (AUTO) 1.2 % (0.0-2.0); EOSINOPHILS % (AUTO) 3.3 % (0.0-3.0); HEMATOCRIT 37.7 % (42.0-52.0); HEMOGLOBIN 12.3 G/DL (14.2-18.0); LYMPHOCYTES % (AUTO) 18.6 % (20.0-45.0); MEAN CORPUSCULAR VOLUME 90 FL (80-99); MONOCYTES % (AUTO) 7.6 % (1.0-10.0); NEUTROPHILS % (AUTO) 69.4 % (45.0-75.0); PLATELET COUNT 206 K/UL (150-450); RED BLOOD COUNT 4.19 M/UL (4.70-6.10); RED CELL DISTRIBUTION WIDTH 12.1 % (11.6-14.8); WHITE BLOOD COUNT 6.3 K/UL (4.8-10.8)
--- NOTE | 2019-02-19 07:22 | NUR ---
HAND-OFF: Report given to JAKY OLIVO.NURSE NOTES:
[2019-02-19 07:40] LABS: ANION GAP 7 mmol/L (5-15); BLOOD UREA NITROGEN 24 mg/dL (7-18); CALCIUM 8.7 MG/DL (8.5-10.1); CARBON DIOXIDE 30 MMOL/L (21-32); CHLORIDE 103 MMOL/L (98-107); CREATININE 1.3 MG/DL (0.55-1.30); SODIUM 140 MMOL/L (136-145)
[2019-02-19 08:00] VITALS: BP 113/64
--- NOTE | 2019-02-19 08:16 | NUR ---
NURSE NOTES: recvd pt. Pt is sitting in bed and awake. Pt is on NC @ 2L with no sign of sob or resp distress. No c/o pain. IV site is c/d/i. Pt has condom cath draining to gravity, will continue with plan of care.
[2019-02-19] MEDS: Aspirin EC 81mg tab ORAL SCH (09:05)
[2019-02-19] MEDS: Heparin 5000 units/ml inj SUBQ SCH (09:07)
--- NOTE | 2019-02-19 10:28 | Infectious Diseases Prog Note ---
Assessment/Plan Assessment/Plan Assessment/Plan: 84 yo male with PMHx of COPD, HLD, and HTN who was sent to the ED on 02/12/19 with AMS. CAP CXR RUL infltrate Inf Screen (-) Low grade fever; improving No leukocytosis UTI UA (+) Urine Cx 02/12/19 - <10k GPC AMS JOEL COPD HLD HTN PLAN: - Continue Ceftriaxone #4/6 - Continue Azithromycin #8/10 02/16/19 SP Cefepime #5 and vancomycin #5 - Monitor CBC and Temps -legionella ag urine Thank you for this consult. [facility] will continue to follow the patient with you during this hospitalization. Subjective Allergies: Coded Allergies: No Known Allergies (Unverified , 02/12/19) Subjective Afebrile No Leukocytosis Objective Vital Signs Last 24 Hour Vital Signs Date Time Temp Pulse Resp B/P (MAP) Pulse Ox O2 Delivery O2 Flow Rate FiO2 02/19/19 09:00 81 113/64 02/19/19 08:32 Nasal Cannula 2.0 02/19/19 08:20 81 20 98 Nasal Cannula 2.0 28 83 20 97 02/19/19 08:19 97 Nasal Cannula 2.0 28 02/19/19 08:00 81 02/19/19 08:00 97.2 86 20 113/64 (80) 98 02/19/19 04:00 98.5 84 18 102/66 (78) 98 02/19/19 04:00 84 02/19/19 03:13 85 18 96 Nasal Cannula 2.0 28 82 18 94 02/19/19 00:00 98.3 89 20 119/65 (83) 99 02/19/19 00:00 83 02/18/19 23:52 88 18 98 Nasal Cannula 2.0 28 86 18 95 02/18/19 21:00 Nasal Cannula 2.0 02/18/19 20:00 93 02/18/19 20:00 98.7 88 20 118/67 (84) 96 02/18/19 20:00 90 18 100 Nasal Cannula 2.0 28 89 18 97 02/18/19 20:00 98 Nasal Cannula 2.0 28 02/18/19 16:00 98.4 100 18 105/63 (77) 98 02/18/19 15:37 80 20 98 Nasal Cannula 2.0 28 83 20 93 02/18/19 15:31 96 02/18/19 13:44 98.4 95 18 116/67 (83) 98 02/18/19 12:00 98.4 85 18 116/67 (83) 98 02/18/19 11:59 81 20 99 Nasal Cannula 2.0 28 82 20 96 02/18/19 11:34 95 Height (Feet): 5 Height (Inches): 10.00 Weight (Pounds): 137 Objective Gen: NAD HEENT: NCAT, MMM, EOMI LUNGS: Coarse B/L CARDS: RRR, S1, S2 ABD: Soft, NT, ND Laboratory Tests Test 02/19/19 05:55 White Blood Count 6.3 K/UL (4.8-10.8) Red Blood Count 4.19 M/UL (4.70-6.10) L Hemoglobin 12.3 G/DL (14.2-18.0) L Hematocrit 37.7 % (42.0-52.0) L Mean Corpuscular Volume 90 FL (80-99) Mean Corpuscular Hemoglobin 29.3 PG (27.0-31.0) Mean Corpuscular Hemoglobin Concent 32.5 G/DL (32.0-36.0) Red Cell Distribution Width 12.1 % (11.6-14.8) Platelet Count 206 K/UL (150-450) Mean Platelet Volume 7.4 FL (6.5-10.1) Neutrophils (%) (Auto) 69.4 % (45.0-75.0) Lymphocytes (%) (Auto) 18.6 % (20.0-45.0) L Monocytes (%) (Auto) 7.6 % (1.0-10.0) Eosinophils (%) (Auto) 3.3 % (0.0-3.0) H Basophils (%) (Auto) 1.2 % (0.0-2.0) Sodium Level 140 MMOL/L (136-145) Potassium Level 4.0 MMOL/L (3.5-5.1) Chloride Level 103 MMOL/L (98-107) Carbon Dioxide Level 30 MMOL/L (21-32) Anion Gap 7 mmol/L (5-15) Blood Urea Nitrogen 24 mg/dL (7-18) H Creatinine 1.3 MG/DL (0.55-1.30) Estimat Glomerular Filtration Rate mL/min (>60) Glucose Level 98 MG/DL (74-106) Calcium Level 8.7 MG/DL (8.5-10.1) Current Medications Medications (Trade) Dose Ordered Sig/Nixon Route PRN Reason Start Time Stop Time Status Last Admin Dose Admin Acetaminophen (Tylenol) 650 mg Q4H PRN ORAL fever 02/12/19 13:15 03/14/19 13:14 02/14/19 20:27 Acetaminophen/ Hydrocodone Bitart ([place] 7.5/325) 1 tab Q6H PRN ORAL For Pain 02/12/19 13:15 02/19/19 13:14 Albuterol/ Ipratropium (Albuterol/ Ipratropium) 3 ml Q4HRT HHN 02/18/19 19:00 02/23/19 18:59 02/19/19 08:22 Amlodipine Besylate (Norvasc) 5 mg DAILY ORAL 02/13/19 09:00 03/15/19 08:59 02/18/19 08:26 Aspirin (Ecotrin) 81 mg DAILY ORAL 02/13/19 09:00 03/15/19 08:59 02/19/19 09:05 Atorvastatin Calcium (Lipitor) 80 mg BEDTIME ORAL 02/12/19 21:00 03/14/19 20:59 02/18/19 20:37 Azithromycin (Zithromax) 250 mg Q24H ORAL 02/15/19 13:00 02/19/19 13:59 02/18/19 13:52 Ceftriaxone Sodium 1 gm/ Dextrose 55 ml @ 110 mls/hr Q24H IVPB 02/16/19 14:00 02/23/19 13:59 02/18/19 14:08 Heparin Sodium (Porcine) (Heparin 5000 units/ml) 5,000 units EVERY 12 HOURS SUBQ 02/12/19 21:00 03/14/19 20:59 02/19/19 09:07 Levetiracetam (Keppra) 1,000 mg Q12HR ORAL 02/12/19 21:00 03/14/19 20:59 02/19/19 09:06 Nitroglycerin (Ntg) 0.4 mg Q5M PRN SL Prn Chest Pain 02/12/19 13:15 03/14/19 13:14 Ondansetron HCl (Zofran) 4 mg Q6H PRN IVP Nausea & Vomiting 02/12/19 13:15 03/14/19 13:14 Polyethylene Glycol (Miralax) 17 gm DAILYPRN PRN ORAL Constipation 02/12/19 13:15 03/14/19 13:14 Promethazine HCl/ Codeine (Phenergan with Codeine) 5 ml Q4H PRN ORAL For Cough 02/12/19 13:15 03/14/19 13:14 Temazepam (Restoril) 15 mg HSPRN PRN ORAL Insomnia 02/12/19 13:15 02/19/19 13:14 02/13/19 22:36 Martinez Banda MD Feb 19, 2019 10:28
[2019-02-19 11:24] VITALS: BP 145/77
--- NOTE | 2019-02-19 11:29 | Pulmonology Progress Note ---
Assessment/Plan Problems: (1) Pneumonia (2) Sinus tachycardia (3) JOEL (acute kidney injury) (4) Altered level of consciousness (5) BPH (benign prostatic hyperplasia) Assessment/Plan respiratory treatment titrate fio2 to sat of 92% renal Us reviewed dc iv fluids, all cultures are negative tolerating feeding CT reviewed: extensive infiltrate at RUL cardiac evaluation for optimizing cardiac meds. dc to assisted living with oral abx. Subjective ROS Limited/Unobtainable: No Interval Events: doing better Allergies: Coded Allergies: No Known Allergies (Unverified , 02/12/19) Objective Last 24 Hour Vital Signs Date Time Temp Pulse Resp B/P (MAP) Pulse Ox O2 Delivery O2 Flow Rate FiO2 02/19/19 11:24 97.5 89 18 145/77 (99) 99 02/19/19 10:52 87 20 99 Nasal Cannula 2.0 28 89 20 98 02/19/19 09:00 81 113/64 02/19/19 08:32 Nasal Cannula 2.0 02/19/19 08:20 81 20 98 Nasal Cannula 2.0 28 83 20 97 02/19/19 08:19 97 Nasal Cannula 2.0 28 02/19/19 08:00 81 02/19/19 08:00 97.2 86 20 113/64 (80) 98 02/19/19 04:00 98.5 84 18 102/66 (78) 98 02/19/19 04:00 84 02/19/19 03:13 85 18 96 Nasal Cannula 2.0 28 82 18 94 02/19/19 00:00 98.3 89 20 119/65 (83) 99 02/19/19 00:00 83 02/18/19 23:52 88 18 98 Nasal Cannula 2.0 28 86 18 95 02/18/19 21:00 Nasal Cannula 2.0 02/18/19 20:00 93 02/18/19 20:00 98.7 88 20 118/67 (84) 96 02/18/19 20:00 90 18 100 Nasal Cannula 2.0 28 89 18 97 02/18/19 20:00 98 Nasal Cannula 2.0 28 02/18/19 16:00 98.4 100 18 105/63 (77) 98 02/18/19 15:37 80 20 98 Nasal Cannula 2.0 28 83 20 93 02/18/19 15:31 96 02/18/19 13:44 98.4 95 18 116/67 (83) 98 02/18/19 12:00 98.4 85 18 116/67 (83) 98 02/18/19 11:59 81 20 99 Nasal Cannula 2.0 28 82 20 96 02/18/19 11:34 95 Intake and Output 02/18/19 02/19/19 19:00 07:00 Intake Total 240 ml Output Total 600 ml Balance -360 ml Intake Oral 240 ml Output Urine Total 600 ml # Voids 2 # Bowel Movements 1 Objective General Appearance: WD/WN, no apparent distress Lines, tubes and drains: peripheral HEENT: normocephalic, atraumatic Neck: non-tender, normal alignment Respiratory/Chest: chest wall non-tender, lungs clear Cardiovascular/Chest: normal peripheral pulses, regular rhythm Abdomen: normal bowel sounds, non tender Skin Exam: normal pigmentation 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: 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 II-XII grossly normal Laboratory Tests 02/19/19 05:55: White Blood Count 6.3, Red Blood Count 4.19L, Hemoglobin 12.3L, Hematocrit 37.7L , Mean Corpuscular Volume 90, Mean Corpuscular Hemoglobin 29.3, Mean Corpuscular Hemoglobin Concent 32.5, Red Cell Distribution Width 12.1, Platelet Count 206, Mean Platelet Volume 7.4, Neutrophils (%) (Auto) 69.4, Lymphocytes (% ) (Auto) 18.6L, Monocytes (%) (Auto) 7.6, Eosinophils (%) (Auto) 3.3H, Basophils (%) (Auto) 1.2, Sodium Level 140, Potassium Level 4.0, Chloride Level 103, Carbon Dioxide Level 30, Anion Gap 7, Blood Urea Nitrogen 24H, Creatinine 1.3, Estimat Glomerular Filtration Rate , Glucose Level 98, Calcium Level 8.7 Current Medications Medications (Trade) Dose Ordered Sig/Nixon Route PRN Reason Start Time Stop Time Status Last Admin Dose Admin Acetaminophen (Tylenol) 650 mg Q4H PRN ORAL fever 02/12/19 13:15 03/14/19 13:14 02/14/19 20:27 Acetaminophen/ Hydrocodone Bitart ([place] 7.5/325) 1 tab Q6H PRN ORAL For Pain 02/12/19 13:15 02/19/19 13:14 Albuterol/ Ipratropium (Albuterol/ Ipratropium) 3 ml Q4HRT HHN 02/18/19 19:00 02/23/19 18:59 02/19/19 10:54 Amlodipine Besylate (Norvasc) 5 mg DAILY ORAL 02/13/19 09:00 03/15/19 08:59 02/18/19 08:26 Aspirin (Ecotrin) 81 mg DAILY ORAL 02/13/19 09:00 03/15/19 08:59 02/19/19 09:05 Atorvastatin Calcium (Lipitor) 80 mg BEDTIME ORAL 02/12/19 21:00 03/14/19 20:59 02/18/19 20:37 Azithromycin (Zithromax) 250 mg Q24H ORAL 02/15/19 13:00 02/21/19 14:00 02/18/19 13:52 Ceftriaxone Sodium 1 gm/ Dextrose 55 ml @ 110 mls/hr Q24H IVPB 02/16/19 14:00 02/23/19 13:59 02/18/19 14:08 Heparin Sodium (Porcine) (Heparin 5000 units/ml) 5,000 units EVERY 12 HOURS SUBQ 02/12/19 21:00 03/14/19 20:59 02/19/19 09:07 Levetiracetam (Keppra) 1,000 mg Q12HR ORAL 02/12/19 21:00 03/14/19 20:59 02/19/19 09:06 Nitroglycerin (Ntg) 0.4 mg Q5M PRN SL Prn Chest Pain 02/12/19 13:15 03/14/19 13:14 Ondansetron HCl (Zofran) 4 mg Q6H PRN IVP Nausea & Vomiting 02/12/19 13:15 03/14/19 13:14 Polyethylene Glycol (Miralax) 17 gm DAILYPRN PRN ORAL Constipation 02/12/19 13:15 03/14/19 13:14 Promethazine HCl/ Codeine (Phenergan with Codeine) 5 ml Q4H PRN ORAL For Cough 02/12/19 13:15 03/14/19 13:14 Temazepam (Restoril) 15 mg HSPRN PRN ORAL Insomnia 02/12/19 13:15 02/19/19 13:14 02/13/19 22:36 Cristian Yun MD Feb 19, 2019 11:29
[2019-02-19] MEDS ORDERED: LEVOFLOXACIN500 MG ORAL (11:54)
[2019-02-19] MEDS: Azithromycin 250mg tab ORAL SCH (12:37)
--- NOTE | 2019-02-19 13:22 | NUR ---
DISCHARGE PLANNED DISCHARGE ORDER NOTED PATIENT IS TO RETURN HOME WHICH IS "[facility]" NURSING TO ARRANGE TRANSPORTATION HOME
--- NOTE | 2019-02-19 15:07 | NUR ---
NURSE NOTES Pt is in stable condition, Iv removed, prescription in packet
[2019-02-19] MEDS ORDERED: NS Irrig 1000ml ONE (15:50)
[2019-02-19] MEDS ORDERED: NS 275ml ONE (15:50)
--- NOTE | 2019-02-20 09:55 | Discharge Summary ---
Discharge Summary Discharge Summary _ DATE OF ADMISSION: 02/12/2019 DATE OF DISCHARGE: 02/19/2019 DISCHARGED BY: Dr. Bergman REASON FOR ADMISSION: 84 years old male with past medical history of hypertension, dyslipidemia, COPD , presented to the hospital with altered mental status. Patient was confused and lethargic, and was unable to provide any information. According to the real estate leasing agent , he was very confused and lethargic in the morning. He complained of abdominal pain and vomited earlier. No blood in emesis. No dysuria or hematuria. Patient was found to have low-grade fever at home. He exhibited intermittent coughing. patietn sustained one episode of nonbloody emesis as per paramedics. Upon evaluation patient was afebrile , no leukocytosis , stable hemoglobin , hematocrit and platelet count. Stable electrolytes . BUN 39 , creatinine 2.1. Glucose 121. Lactic acid 2.8. Troponin 0.056 Albumin 3.1 . AST 62, ALT 30 . Urinalysis revealed +2 protein, no evidence of UTI . Chest x-ray revealed findings concerning for right upper lobe pneumonia . CT of the head revealed no evidence of acute intracranial hemorrhage , mass- effect or cortical edema. Chronic ischemic microvascular changes noted. 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 Patient subsequently admitted for further management to telemetry floor. CONSULTANTS: pulmonary Dr. Yun ID specialist Dr. Banda HOSPITAL COURSE: Patient admitted to monitored floor. Patient started on broad-spectrum antibiotics and IV hydration. Home medication were resumed. DVT prophylaxis provided. Supplemental oxygen provided and titrated to keep pulse oximetry above 92%. Bronchodilator therapy [id number] and as needed provided. Antitussive provided as needed. Renal parameters and electrolytes were closely monitored, electrolytes corrected as needed, and nephrotoxins were avoided. Renal ultrasound revealed no hydronephrosis or sonographically appreciable renal stones. Renal echogenicity appeared to be within normal limits. Prior to discharge BUN from 39 down to 24 and creatinine from 2.1 down to 1.3. Acute kidney injury was most likely due to dehydration and resolved with IV fluids. ID specialist followed. Influenza swab was negative . urine culture revealed gram-positive cocci with colony count less than 10 K. Urine Legionella antigen was negative. Patient remained afebrile , no leukocytosis. Patient was followed-up with chest x-ray and subsequently undergone CT scan of the chest , abdomen and pelvis , which revealed Patient was on ceftriaxone and azithromycin and will need to continue antibiotic upon discharge to complete the course. Flomax continued. PSA was within normal limits. Blood pressure was managed with calcium channel magan. Statin and antiplatelet therapy with aspirin continued. Seizure precaution maintained Keppra continued . Pain management was addressed as needed. Supportive care provided. Patient clinically stabilized and was ready for transfer back to assisted living. FINAL DIAGNOSES: Altered mental status most likely secondary to toxic metabolic encephalopathy Community-acquired pneumonia right upper lobe Acute kidney injury on chronic renal insufficiency Dehydration with hypovolemia Hypertension Dyslipidemia COPD BPH DISCHARGE MEDICATIONS: See Medication Reconciliation list. DISCHARGE INSTRUCTIONS: Patient was discharged to assisted living. Follow-up with a primary care provider in 1 week. I have been assigned to dictate discharge summary for this account. I was not involved in the patient's management. Ivonne Dey NP Feb 20, 2019 09:55
--- NOTE | 2019-02-20 14:08 | NUR ---
*-* INSURANCE *-* ALL AVAILABLE CLINICALS AND DISCHARGE SUMMARY HAVE BEEN FAXED TO: Ref# [id number] CM: Ellen #[phone] fax# [phone]
== END 2019-02-19 15:51 | disposition home or self-care (01) | DRG 139 ==
LOC: EMR 11:34 → 2E 14:12 → EDBEDREQ 14:48 → 2E 17:03
DX: J18.9 Pneumonia, unspecified organism (principal); N17.9 Acute kidney failure, unspecified; G92 Toxic encephalopathy; J44.9 Chronic obstructive pulmonary disease, unspecified; E78.5 Hyperlipidemia, unspecified; E86.0 Dehydration; I12.9 Hypertensive chronic kidney disease with stage 1 through stage 4 chronic kidney disease, or unspecified chronic kidney disease; N18.9 Chronic kidney disease, unspecified; E86.1 Hypovolemia; N40.0 Benign prostatic hyperplasia without lower urinary tract symptoms; Z79.82 Long term (current) use of aspirin
CPT/HCPCS: 36415; 70450; 71045; 71260; 74177; 74230; 76770; 80048; 80053; 80061; 80202; 80299; 81001; 82043; 82164; 82248; 82550; 82962; 83605; 83735; 83880; 83935; 84100; 84153; 84154; 84300; 84484; 84550; 85007; 85025; 85610; 85651; 85730; 86140; 86710; 87081; 87086; 89050; 92610; 93005; 94640; 94664; 96365; 96367; 96368; 99285; J7620; J8499